=== PATIENT | male | born 1950 | race Caucasian/White ===

== ENCOUNTER 2016-06-20 21:35 | Inpatient (IN) | payer MEDICARE, OTHER ==
--- NOTE | 2016-06-20 22:31 | ED ---
Angelito Donaldson Billy, scribed for Francis Bryson MD on 06/20/16 at 2226 . Complex/Multi-Sys Presentation - HPI Summary HPI Summary: Patient is a 65 year-old male BIBA to [facility] after he was found on the floor with EMS. Per EMS, patient arrives with AMS. In the ED, the patient states that he had been on the floor since yesterday evening because he was unable to move himself. When asked, he was unable to answer whether this was due to pain or weakness. He does not have any other complaints at this time. - History Of Current Complaint Chief Complaint: EDAltMentalStatus Time Seen by Provider: 06/20/16 21:37 Hx Obtained From: Patient, EMS Hx From Patient Unobtainable Due To: Altered Mental Status Onset/Duration: Gradual Onset, Lasting Hours Timing: Constant Severity Currently: Moderate Severity Initially: Moderate Location: Negative Aggravating Factor(s): n/a Alleviating Factor(s): n/a - Allergies/Home Medications Allergies/Adverse Reactions: Allergies Allergy/AdvReac Type Severity Reaction Status Date / Time No Known Allergies Allergy Verified 07/07/14 10:10 Home Medications: Home Medications Menaquinone-7 [Vitamin K2] 100 mcg PO DAILY 06/21/16 [History Confirmed 06/21/16 ] Milk Thistle (Silybum Marianum [Milk Thistle Extract] 1,000 mg PO DAILY [History Confirmed 06/21/16] Turmeric (Curcuma Longa) [Turmeric] 400 mg PO DAILY 06/21/16 [History Confirmed 06/21/16] PMH/Surg Hx/FS Hx/Imm Hx Endocrine/Hematology History: Denies: Hx Diabetes Cardiovascular History: Reports: Hx Angina, Hx Coronary Artery Disease, Hx Hypercholesterolemia, Hx Hypertension - W/MEDS, Hx Myocardial Infarction, Other Cardiovascular Problems/Disorders - CAD Respiratory History: Denies: Hx Asthma, Hx Chronic Obstructive Pulmonary Disease (COPD) Musculoskeletal History: Denies: Other Musculoskeletal History - R SHOULDER PAIN FROM PREVIOUS INJURY Sensory History: Reports: Hx Deafness - [place] - Surgical History Surgery Procedure, Year, and Place: CABG 11 MONTHS AGO Infectious Disease History: No Infectious Disease History: Denies: Traveled Outside the [place] in Last 30 Days - Family History Known Family History: Positive: Cardiac Disease - Social History Alcohol Use: Daily Alcohol Amount: 1 drink with dinner Substance Use Type: Reports: None Hx Tobacco Use: Yes Smoking Status (MU): Former Smoker Review of Systems Negative: Fever Neurological: Other - AMS All Other Systems Reviewed And Are Negative: No - Comments Additional Review of Systems Comments: Full ROS not obtained secondary to AMS. Physical Exam Triage Information Reviewed: Yes Vital Signs On Initial Exam: Initial Vitals Temp Pulse Resp BP Pulse Ox 99.4 F 114 16 163/85 97 06/20/16 22:02 06/20/16 22:02 06/20/16 22:02 06/20/16 22:02 06/20/16 22:02 Vital Signs Reviewed: Yes Appearance: Positive: Ill-Appearing, Thin Skin: Positive: Warm, Dry Head/Face: Positive: Normal Head/Face Inspection Eyes: Positive: JACINDA ENT: Positive: Other - dry mucus membranes Neck: Positive: Supple Respiratory/Lung Sounds: Positive: Clear to Auscultation, Breath Sounds Present Cardiovascular: Positive: RRR Abdomen Description: Positive: Nontender, Soft Neurological: Positive: Receptive Aphasia, Unable to Assess Gait, Other - lt sided weakness Psychiatric: Positive: Anxious Diagnostics - Vital Signs Vital Signs Temp Pulse Resp BP Pulse Ox 06/20/16 22:02 99.4 F 114 16 163/85 97 - Laboratory Result Diagrams: 06/20/16 22:20 06/20/16 23:46 Lab Statement: Any lab studies that have been ordered have been reviewed, and results considered in the medical decision making process. - Radiology CXR Xray Interpretation: No Acute Changes Radiology Interpretation Completed By: ED Physician - CT brain w/o CT Interpretation Completed By: Radiologist - Suspected right frontotemporal mass with prominent surounding vasogenic edema causing 4mm of midline shift, compression of the right lateral ventricle and possible early trapped left lateral ventricle. Recommend further evaluation with enhanced MRI or CT. Neurosurgical consultation is suggested. Re-Evaluation - Re-Evaluation First Eval Comment: d/w dr bear stated admit pt to medicine, give decadron, will evaluate pt in am Complex Multi-Symp Course/Dx - Diagnoses Provider Diagnoses: Brain mass - Physician Notifications Discussed Care Of Patient With: Dr. Vickers (radiology) @ 2320: CT brain results discussed. Dr. Bear (neurosurgery) @ 2324: recommends admission to hospitalist services. Dr. Ray (hospitalist) @ 1952: accepts admission. Instructed by Provider To: Admit As Inpatient - Critical Care Time Critical Care Time: 30-74 min Discharge - Discharge Plan Condition: Critical Disposition: ADMITTED TO [facility] The documentation as recorded by the Angelito solomon Billy accurately reflects the service I personally performed and the decisions made by me, Francis Bryson MD.
[2016-06-20 22:44] LABS: Hematocrit 54 % (42-52); Hemoglobin 17.8 g/dl (14.0-18.0); Mean Corpuscular HGB Conc 33 g/dl (31-36); Mean Corpuscular Hemoglobin 29 pg (27-31); Mean Corpuscular Volume 89 fL (80-94); Mean Platelet Volume 9 um3 (7.4-10.4); Red Blood Count 6.05 10^6/ul (4.0-5.4); Red Cell Distribution Width 14 % (10.5-15); White Blood Count 17.1 10^3/ul (3.5-10.8)
[2016-06-20 22:45] LABS: Add Diff/Slide Review? Slide Review Added; Comments Flag Yes
[2016-06-20 22:58] LABS: ALT 67 U/L (7-52); Albumin 4.3 g/dL (3.2-5.2); Alkaline Phosphatase 68 U/L (34-104); BUN/Creatinine Ratio 56.3 (8-20); Blood Urea Nitrogen 49 mg/dL (6-24); CO2 Carbon Dioxide 28 mmol/L (22-32); Calcium 9.8 mg/dL (8.6-10.3); Chloride 99 mmol/L (101-111); EGFR Non-African American 88.6 (>60); Globulin 4.1 g/dL (2-4); Glucose 144 mg/dL (70-100); Sodium 139 mmol/L (133-145); Total Protein 8.4 g/dL (6.4-8.9)
[2016-06-20 23:06] LABS: Troponin I 0.42 ng/mL (<0.04)
[2016-06-20 23:21] LABS: Alcohol < 10 mg/dL (<10)
[2016-06-20] MEDS ORDERED: Dexamethasone IV* 4 MG/ML 5 ML VIAL (20 MG) IVPB ONE (23:27)
[2016-06-21 00:08] LABS: Magnesium 2.3 mg/dL (1.9-2.7)
--- NOTE | 2016-06-21 01:25 | HP ---
H&P (Free Text) History and Physical: PCP: Gold Puga NP Date/Time of Evaluation: 06/21/2016 0030 CC: unable to ascertain HPI: Mr Massey is a 65YO male who was found on the floor of his home for an uncertain length of time by persons unknown. EMS was called, but their documentation is not currently available for review. Mr Massey while being able to answer questions is highly tangential and unable to process the information I give him. Additionally, he is not oriented to situation. He denies any current weakness, but is unable to lift his LUE off the bed. After much effort, I am not convinced of the reliability of his information, but he reports to increased falls over the past week which he associated with "getting clumsy". When confronted about his LUE, he thinks for a moment and states that began 4-5days ago and then starts telling about how relaxing he finds playing the guitar. He denies current pain at rest, but reports prohibitive low back pain with attempts to lift either lower extremity from the bed. He does admit to some increased cough with eating and drinking, but no slurred speech or visual changes. CT brain WO was read as suspected right frontotemporal mass with prominent surrounding vasogenic edema causing 4mm of midline shift, compression of the right lateral ventricle and possible early trapped L lateral ventricle. Case was discussed between Gold Bear MD neurosurgery and Carline Bryson MD ED. Dr Bear's opinion was strongly that this was not a mass with edema, but a complete R MCA CVA and he will evaluate in the AM. PMedHx CAD/OR/3vCABG/multiple stents HTN HLD Allergies No Known Allergies Allergy (Verified 07/07/14 10:10) Ambulatory Orders Patient unaware of all meds/dosages & reliability is questionable, will need reconciling via Rx in AM. PSurgHx 3vCABG cardiac stents SocHx: former smoker quit ~40years ago, no alcohol or recreational drugs; , lives alone, is currently living in [place] caring for his mother; retired [employer], plays [employer], raises [employer] full code status FamHx: positive for DM, HTN, HLD, & CAD ROS: as above, otherwise reviewed and all were negative Constitutional: NAD, normally developed, well-nourished white male vitals: Vital Signs Temp 37.4 C 06/20/16 22:02 Pulse 121 06/20/16 23:54 Resp 16 06/21/16 00:00 BP 166/98 06/20/16 22:30 Pulse Ox 92 06/20/16 23:54 Intake & Output 06/20/16 06/20/16 06/21/16 11:59 23:59 11:59 Weight 78.018 kg HEENM: atraumatic; sclera/conjunctiva: non-icteric/clear; blephara: normal; hearing: clinically intact; oropharynx: clear, mucosa tacky Neck: soft tissue: non-tender; thyroid: normal Pulmonary: scant crackles B bases, good aeration, no accessory muscle use CV: RR/RR, normal S1S2, no carotid bruit, no jugular venous distention, 2+ B DP/ PT, no edema Abdominal: soft, non-distended, non-tender, no rebound/guarding/rigidity, normoactive bowel sounds, no hepatosplenomegaly or masses, no costovertebral angle tenderness Musculoskeletal: general: grossly intact; gait: unstable Integumental: normal appearance and texture of exposed skin Neurological cranial nerves II: intact visual larose III/IV/: symmetric light reflex, EOMI/PERRLA V: intact facial sensation & mastication VII: L facial droop VIII: hearing clinically intact IX/X: minimal palatal motion, decreased gag reflex, mild dysarthria XII: midline tongue protrusion motor: handed LUE: 3-/5 proximally, distally, & universal grinder tool strength RUE: 4+/5 proximally, distally, & universal grinder tool strength BLE: patient states he can't lift either LE 2nd resultant LBP coordination finger/nose: unable to perform L 2nd weakness heal/vee: unable to perform B 2nd pain sensory crude touch: absent LLE, decreased LUE Psychiatric orientation: AA&O to PP, loosely to situation affect: calm mood: cooperative eye contact: fair to good content: seemingly unreliable memory: foggy related to recent events responses: timely insight: poor Testing: Lab Results 06/20/16 06/20/16 06/20/16 Range/Units 22:20 22:20 22:20 WBC 17.1 H (3.5-10.8) 10^3/ul RBC 6.05 H (4.0-5.4) 10^6/ul Hgb 17.8 (14.0-18.0) g/dl Hct 54 H (42-52) % MCV 89 (80-94) fL MCH 29 (27-31) pg MCHC 33 (31-36) g/dl RDW 14 (10.5-15) % Plt Count 267 (150-450) 10^3/ul MPV 9 (7.4-10.4) um3 Neut % (Auto) 83.7 H (38-83) % Lymph % (Auto) 4.6 L (25-47) % [place] % (Auto) 11.4 H (1-9) % Eos % (Auto) 0 (0-6) % Baso % (Auto) 0.3 (0-2) % Absolute Neuts (auto) 14.3 H (1.5-7.7) 10^3/ul Absolute Lymphs (auto) 0.8 L (1.0-4.8) 10^3/ul Absolute Monos (auto) 1.9 H (0-0.8) 10^3/ul Absolute Eos (auto) 0 (0-0.6) 10^3/ul Absolute Basos (auto) 0.1 (0-0.2) 10^3/ul Absolute Nucleated RBC 0.01 10^3/ul Nucleated RBC % 0.1 INR (Anticoag Therapy) (0.89-1.11) Sodium 139 (133-145) mmol/L Potassium TNP Chloride 99 L (101-111) mmol/L Carbon Dioxide 28 (22-32) mmol/L Anion Gap TNP BUN 49 H (6-24) mg/dL Creatinine 0.87 (0.67-1.17) mg/dL Est GFR ( Amer) 114.0 (>60) Est GFR (Non-Af Amer) 88.6 (>60) BUN/Creatinine Ratio 56.3 H (8-20) Glucose 144 H (70-100) mg/dL Lactic Acid 3.0 H* (0.5-2.0) mmol/L Calcium 9.8 (8.6-10.3) mg/dL Magnesium (1.9-2.7) mg/dL Total Bilirubin 1.40 H (0.2-1.0) mg/dL AST TNP ALT 67 H (7-52) U/L Alkaline Phosphatase 68 (34-104) U/L Troponin I 0.42 H* (<0.04) ng/mL Total Protein 8.4 (6.4-8.9) g/dL Albumin 4.3 (3.2-5.2) g/dL Globulin 4.1 H (2-4) g/dL Albumin/Globulin Ratio 1.0 (1-3) Serum Alcohol < 10 (<10) mg/dL 06/20/16 06/21/16 Range/Units 23:46 00:07 WBC (3.5-10.8) 10^3/ul RBC (4.0-5.4) 10^6/ul Hgb (14.0-18.0) g/dl Hct (42-52) % MCV (80-94) fL MCH (27-31) pg MCHC (31-36) g/dl RDW (10.5-15) % Plt Count (150-450) 10^3/ul MPV (7.4-10.4) um3 Neut % (Auto) (38-83) % Lymph % (Auto) (25-47) % [place] % (Auto) (1-9) % Eos % (Auto) (0-6) % Baso % (Auto) (0-2) % Absolute Neuts (auto) (1.5-7.7) 10^3/ul Absolute Lymphs (auto) (1.0-4.8) 10^3/ul Absolute Monos (auto) (0-0.8) 10^3/ul Absolute Eos (auto) (0-0.6) 10^3/ul Absolute Basos (auto) (0-0.2) 10^3/ul Absolute Nucleated RBC 10^3/ul Nucleated RBC % INR (Anticoag Therapy) 1.17 H (0.89-1.11) Sodium (133-145) mmol/L Potassium 4.2 Chloride (101-111) mmol/L Carbon Dioxide (22-32) mmol/L Anion Gap BUN (6-24) mg/dL Creatinine (0.67-1.17) mg/dL Est GFR ( Amer) (>60) Est GFR (Non-Af Amer) (>60) BUN/Creatinine Ratio (8-20) Glucose (70-100) mg/dL Lactic Acid (0.5-2.0) mmol/L Calcium (8.6-10.3) mg/dL Magnesium 2.3 (1.9-2.7) mg/dL Total Bilirubin (0.2-1.0) mg/dL AST 176 H ALT (7-52) U/L Alkaline Phosphatase (34-104) U/L Troponin I (<0.04) ng/mL Total Protein (6.4-8.9) g/dL Albumin (3.2-5.2) g/dL Globulin (2-4) g/dL Albumin/Globulin Ratio (1-3) Serum Alcohol (<10) mg/dL ECG, personally reviewed: ordered, pending CXR, personally reviewed: no acute process CT brain WO, personally reviewed: IMPRESSION: Suspected right frontotemporal mass with prominent surrounding vasogenic edema causing 4mm of midline shift, compression of the right lateral ventricle and posible early trapped L lateral ventricle. Recommend further evaluation with enhanced MRI or CT. Neurosurgical consultation is suggested. 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 : dexamethasone 10mg loading & 4mg Q6H : MRI brain W/WO in AM : NPO : PT/OT/ST : check lipids in AM : neurochecks : Gold Bear MD neurosurgery consulted by ED, will evaluate in AM : consider neurology consult pending MRI results : supplemental oxyen : supportive care LBP in setting of recent falls : obtain L-spine XRYSs Secondary CAD/OR/3vCABG/multiple stents : review meds after reconcilation HTN : review meds after reconciliation HLD : review meds after reconciliation : lipids in AM Admission Rational: inpatient for further evaluation and management of a subacute neurologic process inappropriate for outpatient setting 2nd high risk of sudden terminal decompensation DVTp: SCDs, no anticoagulation 2nd concern for cerebral tumor vs extensive CVA Code Status: full HCP: formerly (2014) listed as his mother (despite being ), but her current ability to perform this function is unknown
[2016-06-21] MEDS ORDERED: Acetaminophen SUPP* 650 MG SUPP PR PRN (02:52)
[2016-06-21] MEDS ORDERED: Albuterol 2.5 MG/3 ML NEB.SOL* (0.083%) INH PRN (02:55)
[2016-06-21] MEDS ORDERED: Ondansetron INJ* 2 MG/ML VIAL IV PRN (02:56)
[2016-06-21] MEDS ORDERED: Metoprolol Tartrate IV* 1 MG/ML 5 ML VIAL IV PRN (02:57)
[2016-06-21] MEDS: NS 0.9% 1000 ML* 1,000 ML IV SCH ×3 (03:19→20:27)
[2016-06-21] MEDS: Chlorhexidine MOUTHWASH 0.12%* 15 ML UDC SWISH SPIT SCH ×6 (03:28→21:39)
[2016-06-21] MEDS: Dexamethasone IV* 4 MG/ML 1 ML (4 MG) IV SLOW PU SCH ×3 (06:30→17:12)
[2016-06-21 06:45] LABS: Hematocrit 48 % (42-52); Mean Corpuscular HGB Conc 33 g/dl (31-36); Mean Corpuscular Hemoglobin 30 pg (27-31); Mean Corpuscular Volume 90 fL (80-94); Mean Platelet Volume 8 um3 (7.4-10.4); Red Blood Count 5.37 10^6/ul (4.0-5.4); Red Cell Distribution Width 14 % (10.5-15); White Blood Count 14.8 10^3/ul (3.5-10.8)
[2016-06-21 06:48] LABS: Creatine Kinase 3233 U/L (10-223)
[2016-06-21 06:51] LABS: Urine Bacteria Absent (Absent); Urine Bilirubin Negative (Negative); Urine Glucose Negative (Negative); Urine Nitrite Negative (Negative)
[2016-06-21 06:56] LABS: Benzodiazepine Urine Screen None Detected (None Detect)
[2016-06-21 07:01] LABS: Albumin 3.8 g/dL (3.2-5.2); BUN/Creatinine Ratio 62.8 (8-20); Calcium 9.3 mg/dL (8.6-10.3); Direct Bilirubin 0.3 mg/dL (0.03-0.18); EGFR African American 115.5 (>60); EGFR Non-African American 89.8 (>60); Globulin 3.4 g/dL (2-4); HDL Cholesterol 57.9 mg/dL; Indirect Bilirubin 1.1 mg/dL (0.3-1.0); Potassium 3.9 mmol/L (3.5-5.0); Total Bilirubin 1.4 mg/dL (0.2-1.0); Total Protein 7.2 g/dL (6.4-8.9)
[2016-06-21 07:17] LABS: Troponin I 0.31 ng/mL (<0.04)
--- NOTE | 2016-06-21 07:39 | RAD ---
INDICATION: Altered mental status. COMPARISON: There are no prior studies available for comparison. TECHNIQUE: A portable view of the chest was obtained. FINDINGS: The patient is status post coronary artery bypass surgery. The heart is within normal limits in size. There is a small area of increased density which projects over the right upper lobe overlying the anterior right first rib. The lungs are otherwise clear and underinflated. No pleural effusion is seen. IMPRESSION: SMALL AREA OF INCREASED DENSITY WHICH PROJECTS OVER THE RIGHT UPPER LOBE. RECOMMEND A DUAL-ENERGY PA AND LATERAL CHEST X-RAY FOR FURTHER EVALUATION.
[2016-06-21] MEDS ORDERED: Aspirin SUPP* 300 MG PR ONE (07:41)
--- NOTE | 2016-06-21 07:50 | PN ---
Progress Note - Progress Note Note: Dr. Ross called me regarding CT discrepancy. I did relay all information to Dr. Willingham, wooden box maker, via phone call at 0750, as patient is currently located in ICU
--- NOTE | 2016-06-21 07:54 | RAD ---
HISTORY: Altered mental status COMPARISONS: None TECHNIQUE: Multiple contiguous axial CT scans were obtained of the head without intravenous contrast. FINDINGS: HEMORRHAGE/INFARCT: There is hypoattenuation consistent with a subacute infarct of the right MCA territory involving a majority of the right MCA territory. There is high attenuation material consistent with hemorrhagic transformation. MASSES/SHIFT: There is subfalcine shift to the left approximately 0.3 cm. There is partial effacement of the basal cisterns on the right EXTRA-AXIAL SPACES: There are no extra-axial fluid collections. SULCI AND VENTRICLES: The sulci and ventricles are normal in size and position for the patient's stated age. CEREBRUM: As noted above, there is hypoattenuation of the right MCA territory consistent with subacute infarct, with hemorrhagic transformation. There is minimal subfalcine and transtentorial herniation.. BRAINSTEM: There are no focal parenchymal abnormalities. CEREBELLUM: There are no focal parenchymal abnormalities. VESSELS: The vessels are grossly normal. PARANASAL SINUSES: The paranasal sinuses are clear. ORBITS: The orbits are unremarkable. BONES AND SOFT TISSUE: Incidentally noted is a dysraphic defect of the posterior arch of C1 OTHER: None IMPRESSION: 1. SUBACUTE INFARCT OF THE RIGHT MCA TERRITORY WITH HEMORRHAGIC TRANSFORMATION. THERE IS MINIMAL SUBFALCINE AND TRANSTENTORIAL SHIFT. 2. PRELIMINARY FINDINGS WERE DISCUSSED WITH DR. EDDY IN THE EMERGENCY DEPARTMENT BY DR. LORENZO. THE DIFFERENCES FROM THE PRELIMINARY REPORT AND THE FINAL REPORT WERE DISCUSSED WITH DR. STARK IN THE EMERGENCY DEPARTMENT AND DR. MARRUFO IN THE ICU BY DR. URBINA AT APPROXIMATELY 7:45 AM ON JUNE 21, 2016
--- NOTE | 2016-06-21 08:05 | PN ---
Subjective Date of Service: 06/21/16 Interval History: Pt is feeling ok. He states he feels better now than he has in days. He denies any pain. He tells me that he had been falling at home several times over the last 3-4 days. He is unable to tell me when he had his last fall and how long he was on the floor for. He states he is shocked to learn that he had a stroke. Objective Active Medications: Acetaminophen (Tylenol Supp*) 650 mg MS Q6H PRN PRN Reason: FEVER/PAIN Albuterol (Ventolin 2.5 Mg/3 Ml Neb.Fiorella*) 2.5 mg INH Q2H PRN PRN Reason: SOB/WHEEZING Chlorhexidine Gluconate (Peridex Mouth Wash 0.12%*) 15 ml SWISH SPIT Q4HR [facility] Last Admin: 06/21/16 06:30 Dose: 15 ml Dexamethasone Sodium Phosphate (Decadron Iv*) 4 mg IV SLOW PU Q6HR [facility] Last Admin: 06/21/16 06:30 Dose: 4 mg Sodium Chloride (Ns 0.9% 1000 Ml*) 1,000 mls @ 125 mls/hr IV PER RATE [facility] Last Admin: 06/21/16 03:19 Dose: 125 mls/hr Metoprolol Tartrate (Lopressor Iv*) 5 mg IV Q6H PRN PRN Reason: BLOOD PRESSURE Ondansetron HCl (Zofran Inj*) 4 mg IV Q6H PRN PRN Reason: NAUSEA Pantoprazole Sodium (Protonix Iv*) 40 mg IV DAILY [facility] Vital Signs 06/21/16 06/21/16 06/21/16 01:12 01:29 01:30 Temperature Pulse Rate Respiratory 17 16 Rate Blood Pressure 145/92 126/99 (mmHg) O2 Sat by Pulse Oximetry 06/21/16 06/21/16 06/21/16 01:36 01:44 01:45 Temperature 98.7 F Pulse Rate 120 Respiratory 15 Rate Blood Pressure 165/93 150/102 165/93 (mmHg) O2 Sat by Pulse 95 Oximetry 06/21/16 06/21/16 06/21/16 01:52 02:00 02:15 Temperature Pulse Rate 130 91 Respiratory 17 17 17 Rate Blood Pressure 153/100 152/93 (mmHg) O2 Sat by Pulse 89 93 Oximetry 02/06/21/16 06/21/16 02:30 02:45 03:00 Temperature Pulse Rate 109 109 96 Respiratory 20 16 13 Rate Blood Pressure 152/96 152/92 138/84 (mmHg) O2 Sat by Pulse 92 94 94 Oximetry 06/21/16 06/21/16 06/21/16 03:15 03:30 03:45 Temperature Pulse Rate 114 89 84 Respiratory 30 17 14 Rate Blood Pressure 158/103 157/90 131/77 (mmHg) O2 Sat by Pulse 95 97 95 Oximetry 06/21/16 06/21/16 06/21/16 04:00 04:15 04:30 Temperature 97.9 F Pulse Rate 81 79 90 Respiratory 16 12 13 Rate Blood Pressure 141/84 138/79 133/85 (mmHg) O2 Sat by Pulse 93 95 95 Oximetry 06/21/16 06/21/16 06/21/16 04:45 05:00 05:15 Temperature Pulse Rate 86 83 85 Respiratory 12 13 12 Rate Blood Pressure 143/79 129/107 121/75 (mmHg) O2 Sat by Pulse 95 93 95 Oximetry 06/21/16 06/21/16 06/21/16 05:30 05:45 06:00 Temperature Pulse Rate 95 92 96 Respiratory 14 14 14 Rate Blood Pressure 154/87 138/80 152/78 (mmHg) O2 Sat by Pulse 96 95 95 Oximetry 06/21/16 06/21/16 06/21/16 06:15 06:30 07:00 Temperature Pulse Rate 88 95 Respiratory 13 15 Rate Blood Pressure 165/136 151/95 139/103 (mmHg) O2 Sat by Pulse 93 96 Oximetry Oxygen Devices in Use Now: None Appearance: Middle aged male sitting up in bed, NAD Eyes: No Scleral Icterus Ears/Nose/Mouth/Throat: Mucous Membranes Moist Respiratory: Symmetrical Chest Expansion and Respiratory Effort, Clear to Auscultation - but decreased in all lung larose Cardiovascular: NL Sounds; No Murmurs; No JVD, No Edema, - - mildly tachycardic but regular Abdominal: NL Sounds; No Tenderness; No Distention Extremities: No Clubbing, Cyanosis Skin: No Rash or Ulcers, No Nodules or Sclerosis Neurological: - - mildly dysarthric, L facial droop, good feed research aide strength B/L but weakness with lifting the L arm off the bed-he states it "flops around", Pt is able to lift L LE off the bed but unable to hold the leg up Result Diagrams: 06/21/16 06:25 06/21/16 06:25 Microbiology and Other Data: Microbiology 06/21/16 02:05 Nasal Screen MRSA (PCR)(RADHA) - Final Nasal Mrsa Negative Assess/Plan/Problems-Billing Mr Massey is a 65 yo M who has a h/o CAD, HTN and hyperlipidemia who was found down on the floor and confused and brought to the ER where he underwent CT brain that was read initially as a mass with surrounding edema but when the imaging was re-read by our in house radiologist it is felt the findings on CT are actually a large R MCA CVA with hemorrhagic transformation. - Patient Problems (1) Cerebrovascular accident (CVA) due to occlusion of right middle cerebral artery Current Visit: Yes Status: Acute Code(s): I63.511 - CEREB INFRC D/T UNSP OCCLS OR STENOS OF RIGHT MID CEREB ART SNOMED Code(s): 092227951 Comment: The patient's CT brain without contrast last night was initially read as a mass with surrounding edema however Dr. Bear believed this was a subacute infarct of the R MCA (the MCA is visible on CT scan indicating occlusion) with hemorrhagic transformation. This was confirmed by Dr. Ross when he re-read the films this AM. Will obtain CTA head/neck and MRI without contrast to further evaluate the extent of his infarct. Hold on ASA given the hemorrhagic transformation. Obtain neurology consultation. Clinically the patient is doing better than I would anticipate. He will need speech therapy eval, PT/OT. Need to manage his BP. Lipid profile is acceptable. Will need to continue his statin however will wait until his LFTs have improved. (2) Rhabdomyolysis Current Visit: Yes Status: Acute Code(s): M62.82 - RHABDOMYOLYSIS SNOMED Code(s): 340986471 Comment: The duration of time the patient was on the floor is unknown. He had a moderately elevated CPK on admission of 3233 but has now trended down to 2457. Continue IVF hydration. Follow up CPK level tomorrow AM. (3) Elevated troponin Current Visit: Yes Status: Acute Code(s): R74.8 - ABNORMAL LEVELS OF OTHER SERUM ENZYMES SNOMED Code(s): 562909321 Comment: I suspect this elevation is likely related to his rhabdomyolysis however. He is s/p CABG 05/2013 followed by stenting 05/[address] Smith. He has been off his brilinta since 12/2015. He was supposed to be taking a baby aspirin but he tells me he has been intermittently skipping doses of medications. He is getting an echo now. If any concerning wall motion abnormalities will ask for cardiology evaluation though management of an acute event would be limited by the hemorrhagic transformation of his CVA. (4) Transaminitis Current Visit: Yes Status: Acute Code(s): R74.0 - NONSPEC ELEV OF LEVELS OF TRANSAMNS & LACTIC ACID DEHYDRGNSE SNOMED Code(s): 484853842 Comment: I suspect these elevations are secondary to the rhabdomyolysis. Will continue IVF hydration and follow the LFTs. Hold his statin while the LFTs are elevated but this will need to be resumed as soon as possible. (5) Leukocytosis Current Visit: Yes Status: Acute Code(s): D72.829 - ELEVATED WHITE BLOOD CELL COUNT, UNSPECIFIED SNOMED Code(s): 260157202 Comment: I suspect this is a stress reaction. His WBC count trended down from 17.1 to 14.8 today without Abx therapy. No clear signs of infection. Will monitor. (6) HTN (hypertension) Current Visit: Yes Status: Acute Code(s): I10 - ESSENTIAL (PRIMARY) HYPERTENSION SNOMED Code(s): 93211293 Comment: BP is under fair control. Will continue IV metoprolol alone for now to control his HR but not lower the BP to far. (7) Hyperlipidemia Current Visit: Yes Status: Acute Code(s): E78.5 - HYPERLIPIDEMIA, UNSPECIFIED SNOMED Code(s): 17780509 Comment: Statin on hold until LFTs normalize. (8) CAD (coronary artery disease) Current Visit: Yes Status: Acute Code(s): I25.10 - ATHSCL HEART DISEASE OF [place] CORONARY ARTERY W/O ANG PCTRS SNOMED Code(s): 87495049 Comment: No c/o chest pain at this time. Echo results pending. ASA on hold secondary to brain bleed. (9) DVT prophylaxis Current Visit: Yes Status: Acute Code(s): RIF5737 - SNOMED Code(s): 353024760 Comment: SCDs (10) Full code status Current Visit: Yes Status: Acute Code(s): Z78.9 - OTHER SPECIFIED HEALTH STATUS SNOMED Code(s): 214428699
[2016-06-21] MEDS: Pantoprazole IV* 40 MG IV SCH (09:43)
--- NOTE | 2016-06-21 10:23 | ECHO ---
Patient: TARIQ [facility] Rec#: [id number] : 1950 Date: 06/21/2016 Age: 65y Height: 177.8 cm / 70.0 in Weight: 68.5 kg / 151.0 lbs Sex: M BSA: 1.9 Room#: ICU 3 Admit Date#: 06/21/2016 Type: Inpatient Referring: Nathan Ray MD Reading: Marivel Stein MD Benefits Technician: Josseline Barraza RN RDCS CC: Stas Smith MD CC: DIANA ANDERSON DECKHAND TUNA BOAT Transthoracic Echocardiogram BP: 165/136 HR: 97 Rhythm: NSR Findings History: CAD, CABG, NH, PCI, HTN, dyslipidemia, former smoker Technical Comments: The study quality is fair. The study is technically limited due to the patient's smoking history. Completed at 0925. Left Ventricle: The left ventricular chamber size is normal. Septal wall hypertrophy is observed. There is increased basal septal hypertrophy noted without evidence of an increased gradient across the left ventricular outflow tract. There is a focal wall motion abnormality present. Left ventricular systolic function is at the lower limits of normal. The estimated ejection fraction is 50-55%. There is an E to A reversal in the mitral valve flow pattern suggestive of diastolic dysfunction. A thrombus is visualized in the left ventricular apex. Left Atrium: The left atrial chamber size is normal. Right Ventricle: The right ventricular chamber size and systolic function are within normal limits. Right Atrium: The right atrial cavity size is normal. There is evidence of an atrial septal aneurysm. Aortic Valve: The aortic valve leaflets are mildly thickened. There is trace to mild aortic regurgitation. There is no evidence of aortic stenosis. Mitral Valve: There is mitral annular calcification. The mitral valve leaflets are mildly thickened. There is a trace of mitral regurgitation. There is no evidence of mitral stenosis. Tricuspid Valve: The tricuspid valve leaflets are normal. There is trace tricuspid regurgitation. Unable to estimate the right ventricular systolic pressure. Pulmonic Valve: The pulmonic valve structure is not well visualized. There is mild to moderate pulmonic regurgitation. There is no pulmonic stenosis. Pericardium: There is no significant pericardial effusion. Aorta: There is no dilatation of the ascending aorta. There is no dilatation of the aortic arch. There is no dilation of the aortic root. Pulmonary Artery: The main pulmonary artery is not well visualized. Venous: The venous system is not well visualized. The inferior vena cava is not visualized. Summary: There was not any prior study for comparison. Conclusions The left ventricular chamber size is normal. Septal wall hypertrophy is observed. There is increased basal septal hypertrophy noted without evidence of an increased gradient across the left ventricular outflow tract. The estimated ejection fraction is 50-55%. A thrombus is visualized in the left ventricular apex. There is trace to mild aortic regurgitation. There is a trace of mitral regurgitation. There is trace tricuspid regurgitation. There is mild to moderate pulmonic regurgitation. Anteroseptal/apical WMA. The echodense lesion in the LV apex measures 1.6cm x 1.7cm in the A4C view, 1.9cm x 1.2cm in the A2C view, and 1.6cm x 1.9cm in the A3C view. Measurements Name Value Normal Range RVDdMajor (2D) 3.3 cm (2.2 - 4.4) RAd ISD 4CH 4 cm (3.4 - 4.9) RA (A4C)W 3.5 cm (2.9 - 4.6) IVSd (2D) 1.4 cm (0.6 - 1) LVPWd (2D) 1 cm (0.6 - 1) LVIDd (2D) 3.9 cm (3.6 - 5.4) LVIDs (2D) 2.9 cm - LV FS (2D) 25 % (25 - 45) Aortic Annulus 1.8 cm (1.4 - 2.6) Ao root diameter (2D) 2.7 cm (2.1 - 3.5) Ascending Ao 2.6 cm (2.1 - 3.4) Aortic arch 2.6 cm (1.8 - 3.4) LA dimension (AP) 2D 3.5 cm (2.3 - 3.8) LAd ISD 4CH 4.6 cm (2.9 - 5.3) LA ISD 4CH W 3.1 cm (2.5 - 4.5) Name Value Normal Range LA ESV SP 4CH (A/L) 33 ml - LA ESV SP 2CH (A/L) 39 ml - LA ESV BP (A/L) 38 ml - LA ESV BP (A/L) index 20.4 ml/m2 - LA ESV SP 4CH (MOD) 31 ml - LA ESV SP 2CH (MOD) 38 ml - Name Value Normal Range MV E-wave Vmax 0.59 m/sec - MV deceleration time 120 msec - MV A-wave Vmax 0.9 m/sec - MV E:A ratio 0.65 ratio - LV lateral e' Vmax 0.09 m/sec - LV E:e' lateral ratio 6.6 ratio - Name Value Normal Range AV Vmax 1.7 m/sec - AV peak gradient 12 mmHg - LVOT Vmax 0.95 m/sec - KIMBER Vmax 0.86 m/sec - Name Value Normal Range PV Vmax 0.85 m/sec -
--- NOTE | 2016-06-21 11:57 | RAD ---
HISTORY: Stroke COMPARISONS: Head CT dated June 20, 2016 TECHNIQUE: The following sequences were obtained of the head: Sagittal T1-weighted images, axial T2-weighted images, axial FLAIR images, axial susceptibility weighted images, axial T1-weighted images. Additionally, axial diffusion-weighted images were obtained with calculated apparent diffusion coefficients. FINDINGS: HEMORRHAGE/INFARCT: There is restricted diffusion consistent with subacute infarct involving a majority of the right MCA territory. There is associated susceptibility artifact consistent with hemorrhagic conversion is noted on CT. MASSES/SHIFT: There is minimal, 0.3 cm, subfalcine shift to the left. There is partial effacement of the perimesencephalic cistern on the right. EXTRA-AXIAL SPACES/MENINGES: There are no extra-axial fluid collections. SULCI AND VENTRICLES: The sulci and ventricles are normal in size and position for the patient's stated age. CEREBRUM: There is elevated T2/FLAIR signal corresponding to there is restricted diffusion. There are scattered smaller foci in the left cerebral hemisphere. BRAINSTEM: There are no focal parenchymal abnormalities. CEREBELLUM: There are no focal parenchymal abnormalities. The cerebellar tonsils are normal in size and position. SELLA: The sella is normal. PINEAL: The pineal region is clear. CP ANGLE/TEMPORAL BONES: The labyrinthine structures are grossly normal. VESSELS: Normal flow-voids are noted within the visualized vertebral vasculature. DIFFUSION ABNORMALITIES: As noted above, there is restricted diffusion within the right MCA territory consistent with subacute infarct PARANASAL SINUSES/MASTOIDS: The paranasal sinuses are clear. ORBITS: The orbits are unremarkable. BONES AND SOFT TISSUE: No bone or soft tissue abnormalities are noted. OTHER: None IMPRESSION: 1. SUBACUTE INFARCT WITH HEMORRHAGIC CONVERSION OF THE RIGHT MCA TERRITORY. 2. THERE IS MINIMAL SUBFALCINE SHIFT TO THE RIGHT WITH PARTIAL EFFACEMENT OF THE PERIMESENCEPHALIC CISTERN.
[2016-06-21] MEDS ORDERED: Iohexol 350* (CONTRAST) 500 ML MDV IV ONE (12:04)
--- NOTE | 2016-06-21 12:25 | RAD ---
HISTORY: Stroke COMPARISONS: CT of the head dated June 20, 2016 , MRI dated June 21, 2016 TECHNIQUE: Multiple contiguous axial CT scans were obtained of the head and neck After the administration of nonionic intravenous contrast timed to the systemic arterial phase of contrast enhancement. Coronal and sagittal multiplanar reformations are submitted for review. Multiple 3-D maximum intensity projection reconstructions are also submitted for review. FINDINGS: CTA NECK: AORTIC ARCH: There is a normal three-vessel branching pattern of the aortic arch. There is no ostial or proximal stenosis of the cephalic great vessels. RIGHT VERTEBRAL ARTERY: The right vertebral artery appears to terminate in the right posterior inferior cerebellar artery. LEFT VERTEBRAL ARTERY: The left vertebral artery is patent along its course, without stenosis. DOMINANCE: The left vertebral artery is dominant. RIGHT COMMON CAROTID ARTERY: The right common carotid artery is patent. The right carotid bifurcation occurs at C4-C5 RIGHT INTERNAL CAROTID ARTERY: There is minimal atheromatous disease of the right carotid bifurcation, without right internal carotid artery stenosis by NASCET criteria. RIGHT EXTERNAL CAROTID ARTERY: The right external carotid artery is unremarkable. LEFT COMMON CAROTID ARTERY: The left common carotid artery is patent. The left carotid bifurcation occurs at C4-C5 LEFT INTERNAL CAROTID ARTERY: There is minimal atheromatous disease of the left carotid bifurcation, without left internal carotid artery stenosis by NASCET criteria. LEFT EXTERNAL CAROTID ARTERY: The left external carotid artery is unremarkable. VENOUS CIRCULATION: The venous system is unremarkable. SALIVARY GLANDS: The parotid glands, submandibular glands, sublingual glands are normal. NASAL CAVITY/NASOPHARYNX: The nasal cavity and nasopharynx are normal. ORAL CAVITY/OROPHARYNX: The oral cavity is obscured by streak artifact from dental amalgam. The visualized oral cavity and oropharynx are unremarkable. LARYNGEAL APPARATUS/HYPOPHARYNX: The laryngeal apparatus and hypopharynx are normal. UPPER AIRWAY/UPPER ESOPHAGUS: The visualized upper airway and esophagus are normal. LUNG APICES: The lung apices are clear. THYROID GLAND: The thyroid gland is normal. LYMPH NODES: There is no lymphadenopathy by size criteria. BONES AND SOFT TISSUES: Degenerative changes are noted along the spine. CTA HEAD: INTRACRANIAL CIRCULATION: There is no aneurysm, vascular malformation, occlusion, or stenosis of the visualized intracranial circulation. As noted above, the right vertebral artery terminates in the PICA. The anterior communicating artery complex is clear. Bilateral posterior communicating arteries are identified. VENOUS CIRCULATION: The venous system is unremarkable. PERFUSION: There is hypoperfusion of the anterior temporal pole and inferior frontal lobe on the right. HEMORRHAGE/INFARCT: There is hypoattenuation of the right MCA territory corresponding to the infarct noted on previous CT and MRI. The hemorrhage noted on the previous examination is not well-visualized on this contrast-enhanced study. MASSES/SHIFT: There is no mass or shift. EXTRA-AXIAL SPACES: There are no extra-axial fluid collections. SULCI AND VENTRICLES: The sulci and ventricles are normal in size and position for the patient's stated age. CEREBRUM: As noted above, there is hypoattenuation of the right MCA territory BRAINSTEM: There are no focal parenchymal abnormalities. CEREBELLUM: There are no focal parenchymal abnormalities. PARANASAL SINUSES: The paranasal sinuses are clear. ORBITS: The orbits are unremarkable. BONES AND SOFT TISSUE: No bone or soft tissue abnormalities are noted. OTHER: There is no abnormal enhancement. IMPRESSION: 1. AGAIN NOTED IS HYPOATTENUATION OF THE RIGHT MCA TERRITORY CONSISTENT WITH SUBACUTE INFARCT. 2. THERE IS HYPOPERFUSION OF THE ANTERIOR TEMPORAL POLE AND RIGHT INFERIOR FRONTAL LOBE. THERE IS NO APPRECIABLE LARGE VESSEL OCCLUSION OR STENOSIS. 3. THERE IS NO ANEURYSM OR VASCULAR MALFORMATION. 4. THERE IS NO INTERNAL CAROTID ARTERY STENOSIS BY NASCET CRITERIA. CPT II Codes: 3100F
--- NOTE | 2016-06-21 13:13 | RAD ---
INDICATION: Back pain. Falls. COMPARISON: None TECHNIQUE: AP and lateral views were obtained . FINDINGS: Bones: There are no acute bony findings. There are minor arthritic changes with facet arthropathy at the lower 2 lumbar levels. There is spurring at the thoracolumbar junction. Alignment: Normal Disc spaces: The disc spaces are well-maintained Soft tissues: There is residual contrast within the collecting systems and bladder from an earlier CT. IMPRESSION: NO ACUTE FINDINGS. MINOR OSTEOARTHRITIS.
[2016-06-21] MEDS: Aspirin EC Low Dose* 81 MG TAB.EC PO SCH (17:12)
[2016-06-21] MEDS: Atorvastatin* 40 MG TAB PO SCH (17:12)
[2016-06-21] MEDS: Metoprolol Tartrate TAB* 50 mg PO SCH (21:18)
[2016-06-22] MEDS: Dexamethasone IV* 4 MG/ML 1 ML (4 MG) IV SLOW PU SCH ×3 (00:15→12:53)
[2016-06-22] MEDS: Chlorhexidine MOUTHWASH 0.12%* 15 ML UDC SWISH SPIT SCH ×6 (01:46→21:46)
[2016-06-22] MEDS: NS 0.9% 1000 ML* 1,000 ML IV SCH (04:02)
--- NOTE | 2016-06-22 04:16 | CONS ---
NEUROLOGY CONSULTATION: DATE OF CONSULT: 06/21/16 LOCATION: The patient is in ICU, bed 3. REQUESTING PHYSICIAN: Dr. Alejandrina Reid. REASON FOR CONSULT: Right MCA stroke with hemorrhagic transformation. HISTORY OF PRESENT ILLNESS: Lc Massey is a 65-year-old man with a history of coronary artery disease, status post CABG and multiple stents, who presented to the emergency department yesterday after being found down in his home by a neighbor. History is obtained from review of records as well as discussion with the patient and his two brothers who are at the bedside. They estimate that he was potentially down on his floor for at least 3 days because his mother typically speaks with him over the weekends and she was unable to get hold of him either Sunday or Sunday, and today is Sunday. The patient was brought in on Sunday night. Ellen reports that he had been dropping things at home and had been tripping over things and estimates that he fell at least 7 times before finally falling on the floor and being unable to get up. He is unable to state why he did not call for help sooner and the brothers are frustrated because they say he is typically very attentive to his health. He has no past history of stroke. Upon arrival in the emergency department, he was found to have left-sided weakness and a CAT scan showed hypodensity in the territory of the right MCA, with some associated hyperdensity concerning for hemorrhagic transformation. Neurology consultation was requested due to the presence of stroke. PAST MEDICAL HISTORY: 1. Coronary artery disease and myocardial infarction in the past, status post 3 - vessel CABG and multiple stents. 2. Hypertension. 3. Hyperlipidemia. HOME MEDICATIONS: 1. Milk thistle 1000 mg daily. 2. Turmeric 400 mg daily. 3. Menaquinone-7, 1000 mcg daily. 4. Vitamin D3, 2000 units daily. 5. Amlodipine 5 mg daily. 6. Magnesium oxide 400 mg daily. 7. Aspirin 81 mg daily. 8. Isosorbide ER 60 mg daily. 9. Metoprolol 50 mg b.i.d. 10. Lipitor 40 mg daily. 11. Enalapril 10 mg twice daily. The patient had previously been treated with Brilinta, but has been off of that for at least a month under the guidance of his ophthalmic photographer. ALLERGIES: No known drug allergies. FAMILY HISTORY: There is a history of stroke and diabetes in a brother who is , but he also reportedly abused drugs. There is also a history of diabetes in the father, as well as hypertension, hyperlipidemia, and coronary artery disease in the parents. SOCIAL HISTORY: He is a former smoker, quit at least 30 years ago. He drinks alcohol occasionally and denies any recreational drug use. He currently lives alone in [place]. 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 His current deficits are very concerning to him because of his love of playing the guitar. REVIEW OF SYSTEMS: He is currently complaining of a sore throat. He also mentions that his furnace was not working correctly and there was black soot in his apartment and wonders whether there is any sign of this on his chest x-ray. He also has back pain, which was severe when he was lying on the floor, but is somewhat better now. PHYSICAL EXAMINATION: Vital Signs: Temperature 99, blood pressure 163/90, heart rate 92, oxygen saturation 96% on room air. He has been in normal sinus rhythm to sinus tachycardia on telemetry. On general examination, he looks quite well and is fully awake and alert, sitting up in the chair at his bedside, in the ICU. His pharynx is erythematous and the uvula has purulent patches. His heart reveals a regular rate and rhythm, with no murmurs, rubs, or gallops. Lungs are clear to auscultation bilaterally. Carotids are without bruits. He had some abrasions on his knees bilaterally. On neurologic examination, he is fully awake, alert, and oriented. His speech is fluent, without dysarthria or aphasia. On cranial nerve testing, pupils are equal, round, and reactive from 4 to 3 mm bilaterally. He has a slight right gaze preference, but is voluntarily able to overcome and his versions are full but he has impersistence and inattentiveness. There is no obvious visual field defect nor extinction to double simultaneous stimulation, though he does have some difficulty with maintaining his fixation in the midline when trying to cooperate with testing of visual larose. He indicates that sensation is equal in the V1 through V3 distributions bilaterally. There is mild flattening of the left nasolabial fold, but with good activation on smile. The palate elevates symmetrically and the tongue is midline. Shoulder shrug is mildly asymmetric, decreased on the left. There is mildly increased tone in the left upper extremity and paratonia in the right upper extremity. Strength is full in the right upper and lower extremities. He has approximately grade 3 strength in the left shoulder, with grade 4 strength in the left biceps, and nearly full strength in the left triceps. Hand surgery nurse is just mildly weak on the left. The left lower extremity is approximately grade 4 throughout. On sensory testing, he endorses equal sensation to temperature in the upper extremities, but diminished sensation in the left lower extremity. With eyes closed, he is unable to tell that he is being touched in the left lower extremity. There is extinction to double simultaneous stimulation in the upper extremities. On [id number] testing on the right, there is no ataxia. Weakness precludes testing on the left. He was not ambulated at this time. DIAGNOSTIC STUDIES/LAB DATA: Laboratory data reviewed includes a CBC which was notable for white count of 17.1 yesterday, which is down to 14.8 today, with 93 % neutrophils. INR this morning, at midnight, was 1.17. His chemistry panel today is notable for BUN of 54 and a normal creatinine of 0.86, with a GFR of 89.8. Hemoglobin A1c is 6.2 and glucose this morning was 170. Lactate was 3 on admission and was down to 1.6 a few hours later. AST 156, ALT 59, total bilirubin 1.4, direct bilirubin 0.3, and indirect 1.1, which are all high. His CK has trended down from 3233 to 2457. Troponin was 0.42 on admission, has trended down to 0.31. Cholesterol studies indicate triglycerides of 76, total cholesterol 146, LDL of 73, and HDL of 57.9. Urinalysis showed 2+ protein, 2+ ketones, 1+ blood, and 2+ rbc's. Toxicology screen was negative. Alcohol was less than 10. Noncontrast head CT was personally reviewed and showed hypodensity in the territory of the right MCA, with an area of hyperdensity in the deep white matter of the frontal lobe consistent with hemorrhagic transformation. This measures approximately 3.5 cm x 1.7 cm x 3.1 cm, equaling approximately 9 cc. In addition, there is partial effacement of the basal cisterns and some very minimal subfalcine herniation of 0.3 cm. MRI of the brain was also personally reviewed which demonstrates acute-to- subacute infarction in the area previously described on the CT and confirms the presence of hemorrhagic transformation. In addition, there are also a few foci of small vessel ischemic disease in the left cerebral hemisphere. CT angiogram showed minimal atherosclerosis, with no obvious occlusion or major areas of stenosis. His chest x-ray was interpreted to show a small area of increased density, which projects over the right upper lobe overlying the anterior right first rib and recommendation was made for a dual-energy PA and lateral chest x-ray for further evaluation. Echocardiogram showed septal wall hypertrophy, increased basal septal hypertrophy, low normal EF of 50% to 55%, small left ventricular apical thrombus in addition to an anteroseptal/apical wall motion abnormality. The echodense lesion in the ventricular apex measures 1.6 cm x 1.7 cm. IMPRESSION: Lc Massey is a 65-year-old man with a history of significant cardiac disease, who presented to the emergency department with a subacute right MCA stroke with some associated hemorrhagic transformation. He is actually doing remarkably well currently considering the territory of infarction indicated on his scans. Unfortunately, he is found to have a left ventricular thrombus, but currently also has some hemorrhagic transformation within his area of stroke, which currently precludes anticoagulation. At this time, I would like to start him on a baby aspirin and repeat the CT scan tomorrow to assess for stability or improvement in the area of hemorrhagic transformation. If he should have any acute worsening of his neurologic status , he should go immediately for repeat noncontrast head CT for evaluation. If his area of hemorrhagic transformation appears stable to improved tomorrow, we will consider starting heparin drip without bolus given the presence of the cardiac thrombus and significant risk for further embolization from that source. In addition, it appears that he has glucose intolerance versus newly diagnosed diabetes, given his A1c of 6.2%, and will need attention to this risk factor as an outpatient. His lipids appear adequately treated at this point with Lipitor. Continue to let his blood pressure ride on the higher side today , but we will consider beginning to bring that down tomorrow given that we are likely seeing the stroke in the subacute phase. He should remain in the ICU at this time for close monitoring given the presence of the cardiac thrombus. Separately, he has erythema and apparent purulent discharge in his pharynx and I have ordered a rapid strep test to be done. Thank you for this consultation. [id number]/[facility] #: [id number] MILY
[2016-06-22 05:38] LABS: Hematocrit 41 % (42-52); Hemoglobin 13.5 g/dl (14.0-18.0); Mean Corpuscular HGB Conc 33 g/dl (31-36); Mean Corpuscular Hemoglobin 30 pg (27-31); Mean Corpuscular Volume 90 fL (80-94); Mean Platelet Volume 8 um3 (7.4-10.4); Red Blood Count 4.54 10^6/ul (4.0-5.4); Red Cell Distribution Width 13 % (10.5-15); White Blood Count 13.5 10^3/ul (3.5-10.8)
[2016-06-22 05:49] LABS: BUN/Creatinine Ratio 63.8 (8-20); Calcium 8.2 mg/dL (8.6-10.3); EGFR African American 148.9 (>60); EGFR Non-African American 115.8 (>60); Globulin 2.8 g/dL (2-4); Potassium 3.6 mmol/L (3.5-5.0); Total Bilirubin 0.9 mg/dL (0.2-1.0); Total Protein 5.8 g/dL (6.4-8.9)
--- NOTE | 2016-06-22 08:03 | RAD ---
HISTORY: Follow-up stroke COMPARISONS: None TECHNIQUE: Multiple contiguous axial CT scans were obtained of the head without intravenous contrast. FINDINGS: HEMORRHAGE/INFARCT: Again noted is hypoattenuation consistent with subacute infarct of the right MCA territory. There is persistent high attenuation material centrally consistent with hemorrhagic transformation. MASSES/SHIFT: There is persistent subfalcine shift to the left of approximately 0.3 cm. There is persistent partial effacement of the perimesencephalic cistern on the right. EXTRA-AXIAL SPACES: There are no extra-axial fluid collections. The subarachnoid hemorrhage described in the preliminary report is felt to represent cortical hemorrhage in the setting of cortical laminar necrosis SULCI AND VENTRICLES: The sulci and ventricles are normal in size and position for the patient's stated age. CEREBRUM: As noted above, there is a subacute infarct of the right MCA territory with hemorrhagic transformation BRAINSTEM: There are no focal parenchymal abnormalities. CEREBELLUM: There are no focal parenchymal abnormalities. VESSELS: The vessels are grossly normal. PARANASAL SINUSES: The paranasal sinuses are clear. ORBITS: The orbits are unremarkable. BONES AND SOFT TISSUE: Incidentally noted is a dysraphic defect of the posterior arch of C1 OTHER: None IMPRESSION: STABLE SUBACUTE RIGHT MCA INFARCT WITH HEMORRHAGIC TRANSFORMATION AND A SMALL AMOUNT OF SHIFT
[2016-06-22] MEDS: Pantoprazole IV* 40 MG IV SCH (08:35)
[2016-06-22] MEDS: Aspirin EC Low Dose* 81 MG TAB.EC PO SCH (08:35)
[2016-06-22] MEDS: Metoprolol Tartrate TAB* 50 mg PO SCH ×2 (08:35→20:36)
--- NOTE | 2016-06-22 09:25 | PN ---
Subjective Date of Service: 06/22/16 Interval History: Pt is feeling ok. He is scared and upset about the stroke. He would like to play his guitar because he feels his fingers on the left hand are clumsy. He denies any pain at this time. He denies any SOB. He would like to get up to the chair. Objective Active Medications: Acetaminophen (Tylenol Supp*) 650 mg WA Q6H PRN PRN Reason: FEVER/PAIN Albuterol (Ventolin 2.5 Mg/3 Ml Neb.Fiorella*) 2.5 mg INH Q2H PRN PRN Reason: SOB/WHEEZING Aspirin (Aspirin Ec Low Dose*) 81 mg PO DAILY COUNTS INCLUDE 234 BEDS AT THE [facility] Last Admin: 06/22/16 08:35 Dose: 81 mg Atorvastatin Calcium (Lipitor*) 40 mg PO QPM COUNTS INCLUDE 234 BEDS AT THE [facility] Last Admin: 06/21/16 17:12 Dose: 40 mg Chlorhexidine Gluconate (Peridex Mouth Wash 0.12%*) 15 ml SWISH SPIT Q4HR COUNTS INCLUDE 234 BEDS AT THE [facility] Last Admin: 06/22/16 06:11 Dose: 15 ml Dexamethasone Sodium Phosphate (Decadron Iv*) 4 mg IV SLOW PU Q6HR COUNTS INCLUDE 234 BEDS AT THE [facility] Last Admin: 06/22/16 06:12 Dose: 4 mg Sodium Chloride (Ns 0.9% 1000 Ml*) 1,000 mls @ 125 mls/hr IV PER RATE COUNTS INCLUDE 234 BEDS AT THE [facility] Last Admin: 06/22/16 04:02 Dose: 125 mls/hr Metoprolol Tartrate (Lopressor Tab*) 50 mg PO BID COUNTS INCLUDE 234 BEDS AT THE [facility] Last Admin: 06/22/16 08:35 Dose: 50 mg Ondansetron HCl (Zofran Inj*) 4 mg IV Q6H PRN PRN Reason: NAUSEA Pantoprazole Sodium (Protonix Iv*) 40 mg IV DAILY COUNTS INCLUDE 234 BEDS AT THE [facility] Last Admin: 06/22/16 08:35 Dose: 40 mg Vital Signs 06/21/16 06/21/16 06/21/16 10:00 10:49 11:46 Temperature Pulse Rate Respiratory 15 15 Rate Blood Pressure 146/85 151/105 (mmHg) O2 Sat by Pulse Oximetry 06/21/16 06/21/16 06/21/16 11:49 12:00 12:48 Temperature 98.7 F Pulse Rate 100 105 100 Respiratory 15 22 16 Rate Blood Pressure 138/101 (mmHg) O2 Sat by Pulse 97 96 97 Oximetry 06/21/16 06/21/16 06/21/16 12:50 13:00 13:24 Temperature Pulse Rate 87 Respiratory 18 18 18 Rate Blood Pressure 155/84 (mmHg) O2 Sat by Pulse 97 Oximetry 06/21/16 06/21/16 06/21/16 14:00 14:47 15:00 Temperature Pulse Rate 83 98 Respiratory 15 15 21 Rate Blood Pressure 143/85 160/100 (mmHg) O2 Sat by Pulse 97 95 Oximetry 06/21/16 06/21/16 06/21/16 15:49 16:00 16:52 Temperature 99 F Pulse Rate 92 Respiratory 21 18 Rate Blood Pressure 163/90 (mmHg) O2 Sat by Pulse 96 Oximetry 06/21/16 06/21/16 06/21/16 17:00 17:41 18:00 Temperature Pulse Rate 80 91 Respiratory 15 20 18 Rate Blood Pressure 147/87 172/104 (mmHg) O2 Sat by Pulse 96 98 Oximetry 06/21/16 06/21/16 06/21/16 19:00 19:55 20:00 Temperature 97.9 F Pulse Rate 80 77 Respiratory 12 11 Rate Blood Pressure 145/70 126/69 (mmHg) O2 Sat by Pulse 95 92 Oximetry 06/21/16 06/21/16 06/21/16 21:00 21:20 22:00 Temperature Pulse Rate 89 90 86 Respiratory 11 18 18 Rate Blood Pressure 142/73 123/68 (mmHg) O2 Sat by Pulse 96 98 95 Oximetry 06/21/16 06/21/16 06/22/16 22:06 23:00 00:00 Temperature 98.6 F Pulse Rate 85 79 77 Respiratory 12 14 17 Rate Blood Pressure 119/72 (mmHg) O2 Sat by Pulse 95 94 94 Oximetry 06/22/16 06/22/16 06/22/16 00:01 01:00 01:43 Temperature Pulse Rate 74 70 Respiratory 18 14 12 Rate Blood Pressure 135/88 118/62 (mmHg) O2 Sat by Pulse 95 95 Oximetry 06/22/16 06/22/16 06/22/16 02:00 03:00 04:00 Temperature 98.8 F Pulse Rate 65 65 85 Respiratory 11 16 17 Rate Blood Pressure 104/58 114/57 149/83 (mmHg) O2 Sat by Pulse 94 93 95 Oximetry 06/22/16 06/22/16 06/22/16 05:00 06:00 07:00 Temperature Pulse Rate 75 74 58 Respiratory 18 18 15 Rate Blood Pressure 110/54 116/55 104/59 (mmHg) O2 Sat by Pulse 94 94 91 Oximetry 06/22/16 06/22/16 06/22/16 07:27 08:00 09:00 Temperature 98.4 F Pulse Rate 56 80 Respiratory 12 21 Rate Blood Pressure 144/70 140/63 (mmHg) O2 Sat by Pulse 96 94 Oximetry Oxygen Devices in Use Now: None Appearance: Middle aged male sitting up in bed eating breakfast, NAD Eyes: No Scleral Icterus Ears/Nose/Mouth/Throat: Mucous Membranes Moist Respiratory: Symmetrical Chest Expansion and Respiratory Effort, Clear to Auscultation Cardiovascular: NL Sounds; No Murmurs; No JVD, RRR, No Edema Abdominal: NL Sounds; No Tenderness; No Distention Extremities: No Clubbing, Cyanosis Skin: No Rash or Ulcers, No Nodules or Sclerosis Neurological: Alert and Oriented x 3, - - + L UE drift, L LE strength not tested due to position in bed Result Diagrams: 06/22/16 05:30 06/22/16 05:30 Microbiology and Other Data: Microbiology 06/21/16 02:05 Nasal Screen MRSA (PCR)(RADHA) - Final Nasal Mrsa Negative Assess/Plan/Problems-Billing Mr Massey is a 65 yo M who has a h/o CAD, HTN and hyperlipidemia who was found down on the floor and confused and brought to the ER where he underwent CT brain that was read initially as a mass with surrounding edema but when the imaging was re-read by our in house radiologist it is felt the findings on CT are actually a large R MCA CVA with hemorrhagic transformation. - Patient Problems (1) Cerebrovascular accident (CVA) due to occlusion of right middle cerebral artery Current Visit: Yes Status: Acute Code(s): I63.511 - CEREB INFRC D/T UNSP OCCLS OR STENOS OF RIGHT MID CEREB ART SNOMED Code(s): 929176029 Comment: Appreciate neurology consultation. He has been started on ASA 81mg daily given the newly identified LV thrombus. As his CT is stable today will likely start heparin without boluses at the direction of neurology as he is at risk for further embolization from the LV thrombus. His R MCA CVA is likely the result of embolization from the LV thrombus to the R MCA. Continue PT/OT. PMRU eval. Will restart lipitor today as his LFTs are improving. Will resume his home BP medications. (2) Rhabdomyolysis Current Visit: Yes Status: Acute Code(s): M62.82 - RHABDOMYOLYSIS SNOMED Code(s): 064900179 Comment: Repeat CPK level pending. I have stopped the IVF as he is now eating /drinking without difficulty. (3) Prediabetes Current Visit: Yes Status: Acute Code(s): R73.03 - PREDIABETES SNOMED Code (s): 203690827 Comment: A1c is mildly elevated at 6.2%. Will ask for nutrition consult. (4) Elevated troponin Current Visit: Yes Status: Acute Code(s): R74.8 - ABNORMAL LEVELS OF OTHER SERUM ENZYMES SNOMED Code(s): 456685541 Comment: ASA has been resumed. Resume other usual home cardiac medicatons. (5) Transaminitis Current Visit: Yes Status: Acute Code(s): R74.0 - NONSPEC ELEV OF LEVELS OF TRANSAMNS & LACTIC ACID DEHYDRGNSE SNOMED Code(s): 196078189 Comment: LFTs improving. Restart lipitor today. (6) Leukocytosis Current Visit: Yes Status: Acute Code(s): D72.829 - ELEVATED WHITE BLOOD CELL COUNT, UNSPECIFIED SNOMED Code(s): 853615622 Comment: Rapid strep swab negative. No other concerns for infection. Continue to hold ABx and monitor WBC (continues to trend down). (7) HTN (hypertension) Current Visit: Yes Status: Acute Code(s): I10 - ESSENTIAL (PRIMARY) HYPERTENSION SNOMED Code(s): 33010314 Comment: Will resume enalapril and imdur today. Continue to hold amlodipine as his BP is not markedly elevated. (8) Hyperlipidemia Current Visit: Yes Status: Acute Code(s): E78.5 - HYPERLIPIDEMIA, UNSPECIFIED SNOMED Code(s): 54006576 Comment: Resume lipitor today. (9) CAD (coronary artery disease) Current Visit: Yes Status: Acute Code(s): I25.10 - ATHSCL HEART DISEASE OF [place] CORONARY ARTERY W/O ANG PCTRS SNOMED Code(s): 66195474 Comment: No c/o chest pain at this time. Echo shows a low normal EF with a focal wall motion abnormality in the anteroseptal region-no old echo to compare to. Continue ASA. (10) DVT prophylaxis Current Visit: Yes Status: Acute Code(s): IRM1643 - SNOMED Code(s): 110603523 Comment: SCDs (11) Full code status Current Visit: Yes Status: Acute Code(s): Z78.9 - OTHER SPECIFIED HEALTH STATUS SNOMED Code(s): 049143006
[2016-06-22] MEDS ORDERED: Heparin VIAL(*) 5000 UNITS/ML VIAL (FIVE THOUSAND) IV SCH (14:00)
[2016-06-22] MEDS: Heparin DRIP 25,000 UNITS(*) 25,000 UNITS/500 ML BAG IV SCH (14:05)
[2016-06-22] MEDS: Atorvastatin* 40 MG TAB PO SCH (17:47)
[2016-06-22] MEDS: Enalapril TAB* 20 MG PO SCH (20:36)
[2016-06-23] MEDS: Chlorhexidine MOUTHWASH 0.12%* 15 ML UDC SWISH SPIT SCH ×6 (01:43→21:15)
--- NOTE | 2016-06-23 02:32 | PN ---
PROGRESS NOTE: DATE OF EVALUATION: 06/22/16 OVERNIGHT EVENTS: There were no acute overnight events. Overall, the patient is stable to improve in terms of his left-sided weakness. No new neurologic symptoms. He had a mild headache this morning, but denies any significant headache now. His throat continues to be very painful making it somewhat difficult to eat. His rapid strep was negative. IN-HOSPITAL MEDICATIONS: 1. Acetaminophen suppository as needed. 2. Albuterol as needed. 3. Aspirin 81 mg daily. 4. Atorvastatin 40 mg daily. 5. Chlorhexidine mouth wash. 6. Enalapril 10 mg twice daily. 7. Dexamethasone 4 mg IV q.6 hours. 8. Isosorbide mononitrate 60 mg daily. 9. Metoprolol 50 mg twice daily. 10. Ondansetron 4 mg IV q.6 p.r.n. 11. Pantoprazole 40 mg IV daily. PHYSICAL EXAMINATION: Vital Signs: Temperature 97.7, blood pressure 128/66, heart rate 70, oxygen saturation 94% on room air. The patient is sitting up right, eating lunch and looks quite well. His pharynx continues to show erythema and what appeared to be purulent patches on his uvula. His heart is in regular rate and rhythm with no murmurs, rubs, or gallops. Lungs are clear to auscultation posteriorly. On neurologic exam, he stated the date was 06/23/16. He is oriented to place. Speech is fluent without dysarthria or aphasia. Versions are full without nystagmus. There appears to be slight left lower quadrant visual field defect. His left-sided weakness overall is stable to slightly improved with grade 3-4 strength in the proximal left upper extremity and grade 4+ strength at the left biceps, 5 at the left triceps, and 4+ quality control assistant strength. The left lower extremity is essentially grade 4 throughout. There are slight flattening of the left nasolabial fold but good activation with smile. He is able to sense light touch in the left calf with eyes closed today, but continues to have extinction to double simultaneous stimulation. LABORATORY DATA: White count is 13.5 today, hematocrit of 41 with 91% neutrophils. His BUN is improved to 44 today from 54 yesterday. CK continues to improve to 1164 from 2457 yesterday. AST is improved to 110 from 156 yesterday. Group A rapid strep was negative. Noncontrast brain CT was obtained and personally reviewed this morning, which shows that the area of hemorrhagic transformation in the territory of the right MCA stroke is stable to slightly improved. IMPRESSION: Lc Massey is a 65-year-old man who presented subacutely with a right MCA stroke associated with hemorrhagic transformation due to left ventricular thrombus. He continues to do very well clinically. His area of hemorrhagic transformation is stable on head CT and so I would like to start a heparin drip with low goal PTT of 50 to 60, no boluses today. I have discussed the risks and benefits of this with Lc and his family and they are in agreement with starting this. He is aware of that if he should have any neurologic changes such as increased left-sided weakness, vision changes, speech changes, headache, he is to alert someone immediately and a repeat CT of the brain should be obtained and the heparin drip should be turned off. Tomorrow morning, he will go for a repeat head CT and if that is stable, we will consider increasing the PTT goal to 60 to 70. For now, he will continue on aspirin as well. Of note, I did not make a note yesterday that he was placed on dexamethasone q.6 hours, presumably because the initial read on the CT when he came in night before last was that this was a mass with surrounding vasogenic edema. I have discontinued that medication as is not indicated in the setting of ischemic stroke. Thank you for this consultation. We will continue to follow the patient. [id number]/[facility] #: [id number] MILY
[2016-06-23 06:47] LABS: Hematocrit 40 % (42-52); Hemoglobin 13.8 g/dl (14.0-18.0); Mean Corpuscular HGB Conc 34 g/dl (31-36); Mean Corpuscular Hemoglobin 30 pg (27-31); Mean Corpuscular Volume 89 fL (80-94); Mean Platelet Volume 9 um3 (7.4-10.4); Red Blood Count 4.55 10^6/ul (4.0-5.4); Red Cell Distribution Width 14 % (10.5-15); White Blood Count 14.2 10^3/ul (3.5-10.8)
[2016-06-23 07:07] LABS: BUN/Creatinine Ratio 52.3 (8-20); Calcium 8.4 mg/dL (8.6-10.3); EGFR African American 159.6 (>60); EGFR Non-African American 124.1 (>60); Potassium 3.4 mmol/L (3.5-5.0)
--- NOTE | 2016-06-23 08:18 | RAD ---
INDICATION: Hemorrhagic CVA, follow-up. COMPARISON: Comparison is made with a prior CT of the brain from June 22, 2016 and prior MRI of the brain from June 21, 2016. TECHNIQUE: Contiguous axial sections of the brain were obtained from the skull base to the vertex without contrast. FINDINGS: There is a large area of decreased attenuation involving the cortex and white matter in the right frontal, temporal and parietal lobes consistent with a large infarct in the right middle cerebral artery distribution. There are central areas of increased density correlating with susceptibility artifact on the prior MRI study consistent with hemorrhage which appear unchanged. There is mass effect with effacement of the sulci and compression of the right lateral ventricle and approximately 4 mm of subfalcine herniation which has increased slightly from the prior study. No significant focal osseous abnormality is seen. The visualized portion of the paranasal sinuses and mastoid air cells appear clear. The results of this examination were discussed with the referring clinician. IMPRESSION: LARGE SUBACUTE HEMORRHAGIC INFARCT INVOLVING THE RIGHT MIDDLE CEREBRAL ARTERY DISTRIBUTION DEMONSTRATING SLIGHT INCREASED MASS EFFECT AND OTHERWISE UNCHANGED FROM THE PRIOR EXAM.
[2016-06-23] MEDS: Aspirin EC Low Dose* 81 MG TAB.EC PO SCH (09:26)
[2016-06-23] MEDS: Metoprolol Tartrate TAB* 50 mg PO SCH ×2 (09:26→21:09)
[2016-06-23] MEDS: Enalapril TAB* 20 MG PO SCH ×2 (09:26→21:14)
[2016-06-23] MEDS: Isosorbide Mononitrate ER TAB* 30 MG PO SCH (09:26)
[2016-06-23] MEDS: Pantoprazole IV* 40 MG IV SCH (09:26)
[2016-06-23] MEDS ORDERED: Amoxicillin/Clavulanate TAB* 500 MG PO SCH (13:00)
--- NOTE | 2016-06-23 13:34 | RAD ---
HISTORY: Worsening headache, follow-up hemorrhage COMPARISONS: June 23, 2014 at 5:42 AM TECHNIQUE: Multiple contiguous axial CT scans were obtained of the head without intravenous contrast. FINDINGS: HEMORRHAGE/INFARCT: Again noted is a subacute infarct of the right MCA territory with partial hemorrhagic transformation. This is stable from the previous examination. Elsewhere, there is no hemorrhage or acute infarct. MASSES/SHIFT: There is stable subfalcine shift to the left. There is sulcal effacement, with partial effacement of the right perimesencephalic cistern. This is stable... EXTRA-AXIAL SPACES: There are no extra-axial fluid collections. SULCI AND VENTRICLES: The sulci and ventricles are normal in size and position for the patient's stated age. CEREBRUM: As noted above, there is hypoattenuation of the right MCA territory with associated hemorrhagic transformation BRAINSTEM: There are no focal parenchymal abnormalities. CEREBELLUM: There are no focal parenchymal abnormalities. VESSELS: The vessels are grossly normal. PARANASAL SINUSES: The paranasal sinuses are clear. ORBITS: The orbits are unremarkable. BONES AND SOFT TISSUE: No bone or soft tissue abnormalities are noted. OTHER: None IMPRESSION: STABLE SUBACUTE INFARCT OF THE RIGHT MCA TERRITORY WITH HEMORRHAGIC TRANSFORMATION. THERE IS ASSOCIATED EDEMA WITH MINIMAL SUBFALCINE SHIFT TO THE LEFT, STABLE.
--- NOTE | 2016-06-23 14:35 | PN ---
Subjective Date of Service: 06/23/16 Interval History: Pt is feeling ok. He c/o R sided headache now. He rates it a 4-5/10. Objective Active Medications: Acetaminophen (Tylenol Supp*) 650 mg [place] Q6H PRN PRN Reason: FEVER/PAIN Albuterol (Ventolin 2.5 Mg/3 Ml Neb.Fiorella*) 2.5 mg INH Q2H PRN PRN Reason: SOB/WHEEZING Amoxicillin/Clavulanate Potassium (Augmentin Tab*) 500 mg PO BID [facility] Aspirin (Aspirin Ec Low Dose*) 81 mg PO DAILY [facility] Last Admin: 06/23/16 09:26 Dose: 81 mg Atorvastatin Calcium (Lipitor*) 40 mg PO QPM [facility] Last Admin: 06/22/16 17:47 Dose: 40 mg Chlorhexidine Gluconate (Peridex Mouth Wash 0.12%*) 15 ml SWISH SPIT Q4HR [facility] Last Admin: 06/23/16 06:13 Dose: 15 ml Enalapril Maleate (Vasotec Tab*) 10 mg PO BID [facility] Last Admin: 06/23/16 09:26 Dose: 10 mg Heparin Sodium (Porcine) (Heparin Vial(*)) 0 units IV .PER PROTOCOL [facility] PRN Reason: Protocol Heparin Sodium/Dextrose (Heparin Drip 25,000 Units(*)) 25,000 units in 500 mls @ 0 mls/hr IV .NO BOLUSES PROTOCOL [facility]; Per Protocol PRN Reason: Protocol Last Admin: 06/22/16 14:05 Dose: 20 mls/hr Isosorbide Mononitrate (Imdur Er Tab*) 60 mg PO DAILY [facility] Last Admin: 06/23/16 09:26 Dose: 60 mg Metoprolol Tartrate (Lopressor Tab*) 50 mg PO BID [facility] Last Admin: 06/23/16 09:26 Dose: 50 mg Ondansetron HCl (Zofran Inj*) 4 mg IV Q6H PRN PRN Reason: NAUSEA Pantoprazole Sodium (Protonix Iv*) 40 mg IV DAILY [facility] Last Admin: 06/23/16 09:26 Dose: 40 mg Vital Signs 06/22/16 06/22/16 06/22/16 15:00 16:00 16:05 Temperature 97.2 F Pulse Rate 57 59 58 Respiratory 16 16 14 Rate Blood Pressure 124/111 (mmHg) O2 Sat by Pulse 98 99 100 Oximetry 06/22/16 06/22/16 06/22/16 17:00 18:00 19:00 Temperature Pulse Rate 57 84 Respiratory 14 19 17 Rate Blood Pressure 127/60 158/90 142/86 (mmHg) O2 Sat by Pulse 98 99 Oximetry 06/22/16 06/22/16 06/22/16 19:40 20:00 21:00 Temperature 98.0 F Pulse Rate 54 Respiratory 10 18 Rate Blood Pressure 95/43 142/73 (mmHg) O2 Sat by Pulse 95 Oximetry 06/22/16 06/22/16 06/22/16 21:58 22:00 23:00 Temperature Pulse Rate Respiratory 17 16 18 Rate Blood Pressure 142/66 137/58 (mmHg) O2 Sat by Pulse Oximetry 06/22/16 06/22/16 06/23/16 23:27 23:39 00:00 Temperature 97.8 F Pulse Rate Respiratory 13 11 Rate Blood Pressure (mmHg) O2 Sat by Pulse Oximetry 06/23/16 06/23/16 06/23/16 00:01 00:02 01:00 Temperature Pulse Rate 51 Respiratory 13 11 Rate Blood Pressure 106/43 (mmHg) O2 Sat by Pulse 95 Oximetry 06/23/16 06/23/16 06/23/16 02:00 03:00 03:51 Temperature Pulse Rate 64 52 60 Respiratory 13 11 19 Rate Blood Pressure 133/67 120/84 (mmHg) O2 Sat by Pulse 97 95 96 Oximetry 06/23/16 06/23/16 06/23/16 04:00 05:00 06:00 Temperature 97.9 F Pulse Rate 49 55 61 Respiratory 10 11 15 Rate Blood Pressure 117/59 124/64 (mmHg) O2 Sat by Pulse 95 96 96 Oximetry 06/23/16 06/23/16 06/23/16 07:00 08:00 08:09 Temperature 97.8 F Pulse Rate 50 57 57 Respiratory 12 13 13 Rate Blood Pressure 148/87 (mmHg) O2 Sat by Pulse 94 96 96 Oximetry 06/23/16 06/23/16 06/23/16 09:00 09:21 10:00 Temperature Pulse Rate 62 63 Respiratory 13 13 14 Rate Blood Pressure 132/69 111/57 (mmHg) O2 Sat by Pulse 97 97 Oximetry 06/23/16 06/23/16 06/23/16 11:00 12:00 12:39 Temperature 98.1 F Pulse Rate 64 49 Respiratory 19 14 Rate Blood Pressure 136/79 128/73 (mmHg) O2 Sat by Pulse 99 98 Oximetry 06/23/16 13:00 Temperature Pulse Rate 55 Respiratory 14 Rate Blood Pressure 116/67 (mmHg) O2 Sat by Pulse 97 Oximetry Oxygen Devices in Use Now: None Appearance: Middle aged male lying in bed sleeping, easily awakened to voice, NAD Eyes: No Scleral Icterus Ears/Nose/Mouth/Throat: Mucous Membranes Moist Respiratory: Symmetrical Chest Expansion and Respiratory Effort, Clear to Auscultation Cardiovascular: NL Sounds; No Murmurs; No JVD, RRR, No Edema Abdominal: NL Sounds; No Tenderness; No Distention Extremities: No Clubbing, Cyanosis Skin: No Rash or Ulcers, No Nodules or Sclerosis Neurological: Alert and Oriented x 3, - - improved strength L UE though still "clumsy" per the patient Result Diagrams: 06/23/16 06:27 06/23/16 06:27 Microbiology and Other Data: Microbiology 06/21/16 02:05 Nasal Screen MRSA (PCR)(RADHA) - Final Nasal Mrsa Negative Assess/Plan/Problems-Billing Mr Massey is a 65 yo M who has a h/o CAD, HTN and hyperlipidemia who was found down on the floor and confused and brought to the ER where he underwent CT brain that was read initially as a mass with surrounding edema but when the imaging was re-read by our in house radiologist it is felt the findings on CT are actually a large R MCA CVA with hemorrhagic transformation. - Patient Problems (1) Cerebrovascular accident (CVA) due to occlusion of right middle cerebral artery Current Visit: Yes Status: Acute Code(s): I63.511 - CEREB INFRC D/T UNSP OCCLS OR STENOS OF RIGHT MID CEREB ART SNOMED Code(s): 000048248 Comment: Continue ASA 81mg daily. Continue heparin drip given interventricular thrombus. Clinically the patient is stable. He was having headache at the time of my evaluation therefore I obtained repeat CT that did not reveal any worsening of the hemorrhage. Continue PT/OT. Awaiting PMRU answer for acute rehab. Continue home medication regimen and lipitor. (2) Rhabdomyolysis Current Visit: Yes Status: Acute Code(s): M62.82 - RHABDOMYOLYSIS SNOMED Code(s): 583751074 Comment: CPK trended down to ~1100. No further need to monitor. (3) Prediabetes Current Visit: Yes Status: Acute Code(s): R73.03 - PREDIABETES SNOMED Code (s): 905334840 Comment: A1c is mildly elevated at 6.2%. (4) Elevated troponin Current Visit: Yes Status: Acute Code(s): R74.8 - ABNORMAL LEVELS OF OTHER SERUM ENZYMES SNOMED Code(s): 164512742 Comment: Continue home medication regimen. (5) Transaminitis Current Visit: Yes Status: Acute Code(s): R74.0 - NONSPEC ELEV OF LEVELS OF TRANSAMNS & LACTIC ACID DEHYDRGNSE SNOMED Code(s): 105891457 Comment: Improved. (6) Leukocytosis Current Visit: Yes Status: Acute Code(s): D72.829 - ELEVATED WHITE BLOOD CELL COUNT, UNSPECIFIED SNOMED Code(s): 574649770 Comment: WBC count is up further today. Will add augmentin given the appearance of his posterior pharynx. (7) HTN (hypertension) Current Visit: Yes Status: Acute Code(s): I10 - ESSENTIAL (PRIMARY) HYPERTENSION SNOMED Code(s): 29472612 Comment: Continue metoprolol, enalapril and imdur. Continue to hold amlodipine. (8) Hyperlipidemia Current Visit: Yes Status: Acute Code(s): E78.5 - HYPERLIPIDEMIA, UNSPECIFIED SNOMED Code(s): 82194515 Comment: Continue lipitor. (9) CAD (coronary artery disease) Current Visit: Yes Status: Acute Code(s): I25.10 - ATHSCL HEART DISEASE OF [place] CORONARY ARTERY W/O ANG PCTRS SNOMED Code(s): 11253329 Comment: No c/o chest pain at this time. Echo shows a low normal EF with a focal wall motion abnormality in the anteroseptal region-no old echo to compare to. Continue ASA. (10) DVT prophylaxis Current Visit: Yes Status: Acute Code(s): CVC4597 - SNOMED Code(s): 437262914 Comment: SCDs (11) Full code status Current Visit: Yes Status: Acute Code(s): Z78.9 - OTHER SPECIFIED HEALTH STATUS SNOMED Code(s): 552091249
[2016-06-23] MEDS: Amoxicillin/Clavulanate TAB* 500 MG PO SCH ×2 (16:15→21:14)
[2016-06-23] MEDS: Atorvastatin* 40 MG TAB PO SCH (17:32)
[2016-06-23] MEDS: Heparin DRIP 25,000 UNITS(*) 25,000 UNITS/500 ML BAG IV SCH (20:00)
[2016-06-24] MEDS: Chlorhexidine MOUTHWASH 0.12%* 15 ML UDC SWISH SPIT SCH ×6 (03:07→21:26)
[2016-06-24 06:52] LABS: BUN/Creatinine Ratio 37.7 (8-20); Calcium 8.1 mg/dL (8.6-10.3); EGFR African American 148.9 (>60); EGFR Non-African American 115.8 (>60); Potassium 3.2 mmol/L (3.5-5.0)
[2016-06-24 07:01] LABS: Hematocrit 39 % (42-52); Mean Corpuscular HGB Conc 33 g/dl (31-36); Mean Corpuscular Hemoglobin 30 pg (27-31); Mean Corpuscular Volume 90 fL (80-94); Mean Platelet Volume 9 um3 (7.4-10.4); Red Blood Count 4.36 10^6/ul (4.0-5.4); Red Cell Distribution Width 13 % (10.5-15); White Blood Count 9.1 10^3/ul (3.5-10.8)
[2016-06-24] MEDS ORDERED: Potassium Chloride LIQUID* 20 MEQ PACKET PO ONE (08:10)
--- NOTE | 2016-06-24 08:42 | PN ---
Subjective Date of Service: 06/24/16 Interval History: Pt is feeling ok. He continues to have "slight" headaches on the R side. He is frustrated with the clumsiness of his left hand and is upset he can not play his guitar. He states his throat is still sore but feeling better. Objective Active Medications: Acetaminophen (Tylenol Supp*) 650 mg [place] Q6H PRN PRN Reason: FEVER/PAIN Albuterol (Ventolin 2.5 Mg/3 Ml Neb.Fiorella*) 2.5 mg INH Q2H PRN PRN Reason: SOB/WHEEZING Amoxicillin/Clavulanate Potassium (Augmentin Tab*) 500 mg PO Q12HR [facility] Last Admin: 06/23/16 21:14 Dose: 500 mg Aspirin (Aspirin Ec Low Dose*) 81 mg PO DAILY [facility] Last Admin: 06/23/16 09:26 Dose: 81 mg Atorvastatin Calcium (Lipitor*) 40 mg PO QPM [facility] Last Admin: 06/23/16 17:32 Dose: 40 mg Chlorhexidine Gluconate (Peridex Mouth Wash 0.12%*) 15 ml SWISH SPIT Q4HR [facility] Last Admin: 06/24/16 07:31 Dose: Not Given Enalapril Maleate (Vasotec Tab*) 10 mg PO BID [facility] Last Admin: 06/23/16 21:14 Dose: 10 mg Heparin Sodium (Porcine) (Heparin Vial(*)) 0 units IV .PER PROTOCOL [facility] PRN Reason: Protocol Heparin Sodium/Dextrose (Heparin Drip 25,000 Units(*)) 25,000 units in 500 mls @ 0 mls/hr IV .NO BOLUSES PROTOCOL [facility]; Per Protocol PRN Reason: Protocol Last Admin: 06/23/16 20:00 Dose: 13 mls/hr Isosorbide Mononitrate (Imdur Er Tab*) 60 mg PO DAILY [facility] Last Admin: 06/23/16 09:26 Dose: 60 mg Metoprolol Tartrate (Lopressor Tab*) 25 mg PO BID [facility] Ondansetron HCl (Zofran Inj*) 4 mg IV Q6H PRN PRN Reason: NAUSEA Pantoprazole Sodium (Protonix Iv*) 40 mg IV DAILY [facility] Last Admin: 06/23/16 09:26 Dose: 40 mg Vital Signs 06/23/16 06/23/16 06/23/16 09:00 09:21 10:00 Temperature Pulse Rate 62 63 Respiratory 13 13 14 Rate Blood Pressure 132/69 111/57 (mmHg) O2 Sat by Pulse 97 97 Oximetry 06/23/16 06/23/16 06/23/16 11:00 12:00 12:39 Temperature 98.1 F Pulse Rate 64 49 Respiratory 19 14 Rate Blood Pressure 136/79 128/73 (mmHg) O2 Sat by Pulse 99 98 Oximetry 06/23/16 06/23/16 06/23/16 13:00 14:00 14:33 Temperature Pulse Rate 55 54 57 Respiratory 14 15 16 Rate Blood Pressure 116/67 100/49 (mmHg) O2 Sat by Pulse 97 93 97 Oximetry 06/23/16 06/23/16 06/23/16 15:00 16:00 17:00 Temperature Pulse Rate 61 62 56 Respiratory 15 18 15 Rate Blood Pressure 95/46 99/52 111/61 (mmHg) O2 Sat by Pulse 98 95 95 Oximetry 06/23/16 06/23/16 06/23/16 18:00 19:00 20:00 Temperature 98.5 F Pulse Rate 61 62 58 Respiratory 14 18 18 Rate Blood Pressure 120/66 100/56 123/74 (mmHg) O2 Sat by Pulse 96 95 95 Oximetry 06/23/16 06/23/16 06/23/16 21:00 21:09 22:00 Temperature Pulse Rate 58 57 60 Respiratory 16 15 15 Rate Blood Pressure 120/59 113/57 109/45 (mmHg) O2 Sat by Pulse 97 96 94 Oximetry 06/23/16 06/23/16 06/24/16 23:00 23:37 00:00 Temperature Pulse Rate 50 63 53 Respiratory 10 13 16 Rate Blood Pressure 105/50 (mmHg) O2 Sat by Pulse 93 96 94 Oximetry 06/24/16 06/24/16 06/24/16 00:01 01:00 02:00 Temperature Pulse Rate 52 56 50 Respiratory 0 0 10 Rate Blood Pressure 103/58 98/57 117/54 (mmHg) O2 Sat by Pulse 95 95 93 Oximetry 06/24/16 06/24/16 06/24/16 03:00 04:00 04:20 Temperature 98.0 F Pulse Rate 52 Respiratory 9 19 17 Rate Blood Pressure 113/63 145/69 (mmHg) O2 Sat by Pulse 95 Oximetry 06/24/16 06/24/1617 04:48 05:00 06:00 Temperature Pulse Rate 51 52 52 Respiratory 10 12 9 Rate Blood Pressure 114/60 122/64 123/73 (mmHg) O2 Sat by Pulse 95 97 95 Oximetry 06/24/16 08:00 Temperature 98.4 F Pulse Rate Respiratory Rate Blood Pressure (mmHg) O2 Sat by Pulse Oximetry Oxygen Devices in Use Now: None Appearance: Middle aged male lying in bed, NAD Eyes: No Scleral Icterus Ears/Nose/Mouth/Throat: Mucous Membranes Moist, - - uvula is erythematous, improved whitish exudate on the uvula Respiratory: Symmetrical Chest Expansion and Respiratory Effort, Clear to Auscultation Cardiovascular: NL Sounds; No Murmurs; No JVD, No Edema, - - bradycardic but regular Abdominal: NL Sounds; No Tenderness; No Distention Extremities: No Clubbing, Cyanosis Skin: No Rash or Ulcers, No Nodules or Sclerosis Neurological: Alert and Oriented x 3 Result Diagrams: 06/24/16 06:15 06/24/16 06:15 Microbiology and Other Data: Microbiology 06/21/16 02:05 Nasal Screen MRSA (PCR)(RADHA) - Final Nasal Mrsa Negative Assess/Plan/Problems-Billing Mr Massey is a 65 yo M who has a h/o CAD, HTN and hyperlipidemia who was found down on the floor and confused and brought to the ER where he underwent CT brain that was read initially as a mass with surrounding edema but when the imaging was re-read by our in house radiologist it is felt the findings on CT are actually a large R MCA CVA with hemorrhagic transformation. - Patient Problems (1) Cerebrovascular accident (CVA) due to occlusion of right middle cerebral artery Current Visit: Yes Status: Acute Code(s): I63.511 - CEREB INFRC D/T UNSP OCCLS OR STENOS OF RIGHT MID CEREB ART SNOMED Code(s): 859946387 Comment: Continue ASA 81mg daily. Continue heparin drip given left ventricular thrombus. Clinically the patient is stable. Repeat CT scan yesterday afternoon did not show any evidence of worsening bleed. Need to monitor very closely. ? timing for initiating coumadin. Continue PT/OT. ?PMRU. (2) Rhabdomyolysis Current Visit: Yes Status: Acute Code(s): M62.82 - RHABDOMYOLYSIS SNOMED Code(s): 173893127 Comment: Resolving. (3) Prediabetes Current Visit: Yes Status: Acute Code(s): R73.03 - PREDIABETES SNOMED Code (s): 810215316 Comment: A1c is mildly elevated at 6.2%. Continue education regarding diabetes. (4) Elevated troponin Current Visit: Yes Status: Acute Code(s): R74.8 - ABNORMAL LEVELS OF OTHER SERUM ENZYMES SNOMED Code(s): 293350616 Comment: He has never complained of chest pain. Continue home medication regimen for his h/o CAD. (5) Transaminitis Current Visit: Yes Status: Acute Code(s): R74.0 - NONSPEC ELEV OF LEVELS OF TRANSAMNS & LACTIC ACID DEHYDRGNSE SNOMED Code(s): 376401071 Comment: Improved. (6) Leukocytosis Current Visit: Yes Status: Acute Code(s): D72.829 - ELEVATED WHITE BLOOD CELL COUNT, UNSPECIFIED SNOMED Code(s): 513690356 Comment: Pt likely has a pharyngitis. His WBC count has improved with the initiation of augmentin. Continue for a 7 day course of therapy. (7) HTN (hypertension) Current Visit: Yes Status: Acute Code(s): I10 - ESSENTIAL (PRIMARY) HYPERTENSION SNOMED Code(s): 49839893 Comment: BP is under excellent control. Continue metoprolol, enalapril and imdur. Continue to hold amlodipine. (8) Hyperlipidemia Current Visit: Yes Status: Acute Code(s): E78.5 - HYPERLIPIDEMIA, UNSPECIFIED SNOMED Code(s): 75618967 Comment: Continue lipitor. (9) CAD (coronary artery disease) Current Visit: Yes Status: Acute Code(s): I25.10 - ATHSCL HEART DISEASE OF [place] CORONARY ARTERY W/O ANG PCTRS SNOMED Code(s): 29746043 Comment: Continue ASA, metoprolol, enalapril and imdur. (10) DVT prophylaxis Current Visit: Yes Status: Acute Code(s): RYQ1820 - SNOMED Code(s): 569524742 Comment: SCDs/heparin drip (11) Full code status Current Visit: Yes Status: Acute Code(s): Z78.9 - OTHER SPECIFIED HEALTH STATUS SNOMED Code(s): 316013610
[2016-06-24] MEDS: Aspirin EC Low Dose* 81 MG TAB.EC PO SCH (09:31)
[2016-06-24] MEDS: Isosorbide Mononitrate ER TAB* 30 MG PO SCH (09:31)
[2016-06-24] MEDS: Amoxicillin/Clavulanate TAB* 500 MG PO SCH ×2 (09:31→21:24)
[2016-06-24] MEDS: Pantoprazole IV* 40 MG IV SCH (09:31)
[2016-06-24] MEDS: Enalapril TAB* 20 MG PO SCH ×2 (09:31→21:23)
[2016-06-24] MEDS: Metoprolol Tartrate TAB* 25 MG PO SCH ×2 (09:32→21:24)
--- NOTE | 2016-06-24 11:53 | PN ---
Progress Note - Progress Note SOAP: Neurology progress note Date of service: 06/24/16 Subjective: No acute events overnight. The patient complains of a mild headache in the right side of the head. Otherwise, he feels that his strength in the left hand and leg has slightly improved, although he is somewhat frustrated about the lack of dexterity in the left-hand. Objective: Vital Signs Temp Pulse Resp BP Pulse Ox 98.4 F 74 15 109/82 96 06/24/16 08:00 06/24/16 11:00 06/24/16 11:00 06/24/16 11:00 06/24/16 11:00 Laboratory Results - last 24 hr 06/23/16 06/23/16 06/24/16 14:50 18:30 01:30 WBC RBC Hgb Hct MCV MCH MCHC RDW Plt Count MPV Neut % (Auto) Lymph % (Auto) [place] % (Auto) Eos % (Auto) Baso % (Auto) Absolute Neuts (auto) Absolute Lymphs (auto) Absolute Monos (auto) Absolute Eos (auto) Absolute Basos (auto) Absolute Nucleated RBC Nucleated RBC % APTT 88.9 H 43.4 H 70.2 H Sodium Potassium Chloride Carbon Dioxide Anion Gap BUN Creatinine Est GFR ( Amer) Est GFR (Non-Af Amer) BUN/Creatinine Ratio Glucose Calcium 06/24/16 06/24/16 06/24/16 06:15 06:15 09:42 WBC 9.1 RBC 4.36 Hgb 13.0 L Hct 39 L MCV 90 MCH 30 MCHC 33 RDW 13 Plt Count 191 MPV 9 Neut % (Auto) 66.4 Lymph % (Auto) 21.9 L [place] % (Auto) 9.9 H Eos % (Auto) 1.2 Baso % (Auto) 0.6 Absolute Neuts (auto) 6.0 Absolute Lymphs (auto) 2.0 Absolute Monos (auto) 0.9 H Absolute Eos (auto) 0.1 Absolute Basos (auto) 0.1 Absolute Nucleated RBC 0 Nucleated RBC % 0 APTT 79.3 H Sodium 137 Potassium 3.2 L Chloride 103 Carbon Dioxide 28 Anion Gap 6 BUN 26 H Creatinine 0.69 Est GFR ( Amer) 148.9 Est GFR (Non-Af Amer) 115.8 BUN/Creatinine Ratio 37.7 H Glucose 94 Calcium 8.1 L Current Medications Acetaminophen (Tylenol Supp*) 650 mg [place] Q6H PRN PRN Reason: FEVER/PAIN Albuterol (Ventolin 2.5 Mg/3 Ml Neb.Fiorella*) 2.5 mg INH Q2H PRN PRN Reason: SOB/WHEEZING Amoxicillin/Clavulanate Potassium (Augmentin Tab*) 500 mg PO Q12HR [facility] Last Admin: 06/24/16 09:31 Dose: 500 mg Aspirin (Aspirin Ec Low Dose*) 81 mg PO DAILY [facility] Last Admin: 06/24/16 09:31 Dose: 81 mg Atorvastatin Calcium (Lipitor*) 40 mg PO QPM [facility] Last Admin: 06/23/16 17:32 Dose: 40 mg Chlorhexidine Gluconate (Peridex Mouth Wash 0.12%*) 15 ml SWISH SPIT Q4HR [facility] Last Admin: 06/24/16 10:23 Dose: 15 ml Enalapril Maleate (Vasotec Tab*) 10 mg PO BID [facility] Last Admin: 06/24/16 09:31 Dose: 10 mg Heparin Sodium (Porcine) (Heparin Vial(*)) 0 units IV .PER PROTOCOL [facility] PRN Reason: Protocol Heparin Sodium/Dextrose (Heparin Drip 25,000 Units(*)) 25,000 units in 500 mls @ 0 mls/hr IV .NO BOLUSES PROTOCOL [facility]; Per Protocol PRN Reason: Protocol Last Admin: 06/23/16 20:00 Dose: 13 mls/hr Isosorbide Mononitrate (Imdur Er Tab*) 60 mg PO DAILY [facility] Last Admin: 06/24/16 09:31 Dose: 60 mg Metoprolol Tartrate (Lopressor Tab*) 25 mg PO BID [facility] Last Admin: 06/24/16 09:32 Dose: 25 mg Ondansetron HCl (Zofran Inj*) 4 mg IV Q6H PRN PRN Reason: NAUSEA Pantoprazole Sodium (Protonix Iv*) 40 mg IV DAILY [facility] Last Admin: 06/24/16 09:31 Dose: 40 mg General appearance: Alert, cooperative, no distress, appears stated age Neurological exam: Alert and oriented x3, speech normal. Pupils symmetric and reactive to light. Extraocular movements intact with no nystagmus. Visual larose seem intact by confrontation (the visual filed deficit detected by Dr Moreau seems is better today) Face symmetric, tongue is in midline, palate elevates upward symmetrically. Motor strength 3/5 in deltoid, 4+/5 in elbow flexion and extension. Strength is 5/5 on the right upper and lower extremities. No resting or positional tremor. Finger to nose intact on the right side. slight action tremor on the left. CT head on 06/23/16 (yesterday): STABLE SUBACUTE INFARCT OF THE RIGHT MCA TERRITORY WITH HEMORRHAGIC TRANSFORMATION. THERE IS ASSOCIATED EDEMA WITH MINIMAL SUBFALCINE SHIFT TO THE LEFT, STABLE. Assessment and Plan: 65-year-old male with right MCA stroke related to left ventricular thrombus. The patient's exam and CT imaging have been stable. continue with heparin with the goal of keeping the PTT in the lower range of 60 70. the patient presented to the hospital on 06/20/16 with subacute to stroke, so probably didn' t date of onset of stroke might be around 06/19/16. Recommend to continue Heparin for about 7 days post stroke, ie around 06/26/16 before switching to Coumadin. Keep the SBP less than 140 mmHg.
[2016-06-24] MEDS ORDERED: Potassium Chlor TAB* 20 MEQ TAB.ER PO ONE (13:40)
[2016-06-24] MEDS: Atorvastatin* 40 MG TAB PO SCH (17:53)
[2016-06-25] MEDS: Chlorhexidine MOUTHWASH 0.12%* 15 ML UDC SWISH SPIT SCH ×6 (02:30→21:25)
[2016-06-25 03:17] LABS: Hematocrit 41 % (42-52); Hemoglobin 13.7 g/dl (14.0-18.0); Mean Corpuscular HGB Conc 34 g/dl (31-36); Mean Corpuscular Hemoglobin 30 pg (27-31); Mean Corpuscular Volume 89 fL (80-94); Mean Platelet Volume 8 um3 (7.4-10.4); Red Cell Distribution Width 13 % (10.5-15); White Blood Count 8.2 10^3/ul (3.5-10.8)
--- NOTE | 2016-06-25 08:15 | PN ---
Subjective Date of Service: 06/25/16 Interval History: Pt is feeling ok. He denies any pain. No SOB. He is frustrated still and worried about recovering fully. Minimal headache. Objective Active Medications: Acetaminophen (Tylenol Supp*) 650 mg [place] Q6H PRN PRN Reason: FEVER/PAIN Albuterol (Ventolin 2.5 Mg/3 Ml Neb.Fiorella*) 2.5 mg INH Q2H PRN PRN Reason: SOB/WHEEZING Amoxicillin/Clavulanate Potassium (Augmentin Tab*) 500 mg PO Q12HR [facility]S [facility]CLUDE [facility] BEDS AT [facility] Last Admin: 06/24/16 21:24 Dose: 500 mg Aspirin (Aspirin Ec Low Dose*) 81 mg PO DAILY [facility]S [facility]CLUDE 234 BEDS AT THE [facility] Last Admin: 06/24/16 09:31 Dose: 81 mg Atorvastatin Calcium (Lipitor*) 40 mg PO QPM COUNTS [facility]CLUDE 234 BEDS AT THE [facility] Last Admin: 06/24/16 17:53 Dose: 40 mg Chlorhexidine Gluconate (Peridex Mouth Wash 0.12%*) 15 ml SWISH SPIT Q4HR COUNTS [facility]CLUDE 234 BEDS AT THE [facility] Last Admin: 06/25/16 06:03 Dose: 15 ml Enalapril Maleate (Vasotec Tab*) 10 mg PO BID [facility]S [facility]CLUDE 234 BEDS AT [facility] Last Admin: 06/24/16 21:23 Dose: 10 mg Heparin Sodium (Porcine) (Heparin Vial(*)) 0 units IV .PER PROTOCOL COUNTS [facility]CLUDE 234 BEDS AT [facility] PRN Reason: Protocol Heparin Sodium/Dextrose (Heparin Drip 25,000 Units(*)) 25,000 units in 500 mls @ 0 mls/hr IV .NO BOLUSES PROTOCOL COUNTS INCLUDE 234 BEDS AT THE [facility]; Per Protocol PRN Reason: Protocol Last Admin: 06/23/16 20:00 Dose: 13 mls/hr Isosorbide Mononitrate (Imdur Er Tab*) 60 mg PO DAILY COUNTS [facility]CLUDE 234 BEDS AT [facility] Last Admin: 06/24/16 09:31 Dose: 60 mg Metoprolol Tartrate (Lopressor Tab*) 25 mg PO BID [facility]S [facility]CLUDE 234 BEDS AT [facility] Last Admin: 06/24/16 21:24 Dose: 25 mg Ondansetron HCl (Zofran Inj*) 4 mg IV Q6H PRN PRN Reason: NAUSEA Pantoprazole Sodium (Protonix Iv*) 40 mg IV DAILY COUNTS [facility]CLUDE 234 BEDS AT [facility] Last Admin: 06/24/16 09:31 Dose: 40 mg Vital Signs 06/24/16 06/24/16 06/24/16 09:00 10:00 10:22 Temperature Pulse Rate 53 76 Respiratory 11 14 14 Rate Blood Pressure 141/67 93/62 (mmHg) O2 Sat by Pulse 96 98 Oximetry 06/24/16 06/24/16 06/24/16 11:00 11:52 12:00 Temperature 99.3 F Pulse Rate 74 66 Respiratory 15 14 Rate Blood Pressure 109/82 107/67 (mmHg) O2 Sat by Pulse 96 97 Oximetry 06/24/16 06/24/16 06/24/16 13:00 14:00 15:00 Temperature Pulse Rate 59 61 87 Respiratory 11 12 16 Rate Blood Pressure 103/65 103/56 100/75 (mmHg) O2 Sat by Pulse 95 98 95 Oximetry 06/24/16 06/24/16 06/24/16 15:22 16:00 17:00 Temperature 98.7 F Pulse Rate 77 67 Respiratory 15 18 Rate Blood Pressure 109/83 100/60 (mmHg) O2 Sat by Pulse 97 96 Oximetry 06/24/16 06/24/16 06/24/16 17:02 18:00 19:00 Temperature Pulse Rate 55 70 81 Respiratory 13 16 6 Rate Blood Pressure 112/78 115/64 (mmHg) O2 Sat by Pulse 91 97 96 Oximetry 06/24/16 06/24/16 06/24/16 19:35 20:00 21:00 Temperature 98.5 F Pulse Rate 74 66 Respiratory 15 17 Rate Blood Pressure 101/47 120/57 (mmHg) O2 Sat by Pulse 97 96 Oximetry 06/24/16 06/24/16 06/24/16 22:00 23:00 23:22 Temperature 98.5 F Pulse Rate 55 64 Respiratory 10 10 Rate Blood Pressure 95/56 115/72 (mmHg) O2 Sat by Pulse 94 96 Oximetry 06/24/16 06/25/16 06/25/16 23:53 00:00 00:01 Temperature Pulse Rate 63 64 63 Respiratory 6 8 9 Rate Blood Pressure 100/67 (mmHg) O2 Sat by Pulse 95 97 95 Oximetry 06/25/16 06/25/16 06/25/16 01:00 02:00 03:00 Temperature Pulse Rate 57 54 65 Respiratory 10 10 20 Rate Blood Pressure 115/56 99/64 120/62 (mmHg) O2 Sat by Pulse 96 94 97 Oximetry 06/25/16 06/25/16 06/25/16 03:10 04:00 05:00 Temperature 98.5 F Pulse Rate 60 57 Respiratory 11 10 Rate Blood Pressure 107/72 120/64 (mmHg) O2 Sat by Pulse 97 97 Oximetry 06/25/16 06/25/16 06/25/16 05:55 06:00 07:00 Temperature Pulse Rate 65 58 Respiratory 16 15 13 Rate Blood Pressure 137/84 140/69 (mmHg) O2 Sat by Pulse 95 95 Oximetry 06/25/16 06/25/16 07:32 08:00 Temperature 98.2 F Pulse Rate 58 Respiratory 12 Rate Blood Pressure 132/71 (mmHg) O2 Sat by Pulse 97 Oximetry Oxygen Devices in Use Now: None Appearance: Middle aged male sitting up in bed, NAD Eyes: No Scleral Icterus Ears/Nose/Mouth/Throat: Mucous Membranes Moist Respiratory: Symmetrical Chest Expansion and Respiratory Effort, Clear to Auscultation Cardiovascular: NL Sounds; No Murmurs; No JVD, RRR, No Edema Abdominal: NL Sounds; No Tenderness; No Distention Extremities: No Clubbing, Cyanosis Skin: No Rash or Ulcers, No Nodules or Sclerosis Neurological: Alert and Oriented x 3, - - ? slighlty improved strength L UE, coordination of the fingers is still off Result Diagrams: 06/25/16 03:05 06/24/16 06:15 Microbiology and Other Data: Microbiology 06/21/16 02:05 Nasal Screen MRSA (PCR)(RADHA) - Final Nasal Mrsa Negative Assess/Plan/Problems-Billing Mr Massey is a 65 yo M who has a h/o CAD, HTN and hyperlipidemia who was found down on the floor and confused and brought to the ER where he underwent CT brain that was read initially as a mass with surrounding edema but when the imaging was re-read by our in house radiologist it is felt the findings on CT are actually a large R MCA CVA with hemorrhagic transformation. - Patient Problems (1) Cerebrovascular accident (CVA) due to occlusion of right middle cerebral artery Current Visit: Yes Status: Acute Code(s): I63.511 - CEREB INFRC D/T UNSP OCCLS OR STENOS OF RIGHT MID CEREB ART SNOMED Code(s): 380434556 Comment: Continue ASA 81mg daily. Continue heparin drip given left ventricular thrombus. Clinically the patient is stable. Will not be able to start coumadin until ~06/26/16. He will need to remain on the heparin drip briding to coumadin until his INR is therapeutic. Continue PT/OT. (2) Rhabdomyolysis Current Visit: Yes Status: Acute Code(s): M62.82 - RHABDOMYOLYSIS SNOMED Code(s): 532872902 Comment: Resolving. (3) Prediabetes Current Visit: Yes Status: Acute Code(s): R73.03 - PREDIABETES SNOMED Code (s): 008846936 Comment: A1c is mildly elevated at 6.2%. Continue education regarding diabetes. (4) Elevated troponin Current Visit: Yes Status: Acute Code(s): R74.8 - ABNORMAL LEVELS OF OTHER SERUM ENZYMES SNOMED Code(s): 147702224 Comment: He has never complained of chest pain. Continue home medication regimen for his h/o CAD. (5) Transaminitis Current Visit: Yes Status: Acute Code(s): R74.0 - NONSPEC ELEV OF LEVELS OF TRANSAMNS & LACTIC ACID DEHYDRGNSE SNOMED Code(s): 951234217 Comment: Improved. (6) Leukocytosis Current Visit: Yes Status: Acute Code(s): D72.829 - ELEVATED WHITE BLOOD CELL COUNT, UNSPECIFIED SNOMED Code(s): 233796376 Comment: Pt likely has a pharyngitis. His WBC count normalized with the initiation of augmentin. Continue for a 7 day course of therapy-done 06/29/16. (7) HTN (hypertension) Current Visit: Yes Status: Acute Code(s): I10 - ESSENTIAL (PRIMARY) HYPERTENSION SNOMED Code(s): 48660308 Comment: BP is under excellent control. Continue metoprolol, enalapril and imdur. Continue to hold amlodipine. (8) Hyperlipidemia Current Visit: Yes Status: Acute Code(s): E78.5 - HYPERLIPIDEMIA, UNSPECIFIED SNOMED Code(s): 25909319 Comment: Continue lipitor. (9) CAD (coronary artery disease) Current Visit: Yes Status: Acute Code(s): I25.10 - ATHSCL HEART DISEASE OF [place] CORONARY ARTERY W/O ANG PCTRS SNOMED Code(s): 24041849 Comment: Continue ASA, metoprolol, enalapril and imdur. (10) DVT prophylaxis Current Visit: Yes Status: Acute Code(s): MTQ0219 - SNOMED Code(s): 256018516 Comment: SCDs/heparin drip (11) Full code status Current Visit: Yes Status: Acute Code(s): Z78.9 - OTHER SPECIFIED HEALTH STATUS SNOMED Code(s): 741541995
[2016-06-25] MEDS ORDERED: Potassium Chlor TAB* 20 MEQ TAB.ER PO ONE (08:19)
[2016-06-25] MEDS: Pantoprazole IV* 40 MG IV SCH (09:34)
[2016-06-25] MEDS: Isosorbide Mononitrate ER TAB* 30 MG PO SCH (09:34)
[2016-06-25] MEDS: Enalapril TAB* 20 MG PO SCH ×2 (09:35→21:25)
[2016-06-25] MEDS: Aspirin EC Low Dose* 81 MG TAB.EC PO SCH (09:35)
[2016-06-25] MEDS: Metoprolol Tartrate TAB* 25 MG PO SCH ×2 (09:35→21:25)
[2016-06-25] MEDS: Amoxicillin/Clavulanate TAB* 500 MG PO SCH ×2 (09:35→21:25)
--- NOTE | 2016-06-25 11:22 | PN ---
Progress Note - Progress Note SOAP: Neurology progress note Date of Service: 06/25/16 Subjective: No acute event overnight. He feels stable. Is concerned about his medical condition. Objective: Vital Signs Temp Pulse Resp BP Pulse Ox 98.2 F 88 17 132/71 99 06/25/16 07:32 06/25/16 10:00 06/25/16 10:00 06/25/16 08:00 06/25/16 10:00 Laboratory Results - last 24 hr 06/24/16 06/25/16 06/25/16 18:35 03:05 03:05 WBC 8.2 RBC 4.60 Hgb 13.7 L Hct 41 L MCV 89 MCH 30 MCHC 34 RDW 13 Plt Count 178 MPV 8 Neut % (Auto) 59.4 Lymph % (Auto) 26.3 [place] % (Auto) 8.7 Eos % (Auto) 5.3 Baso % (Auto) 0.3 Absolute Neuts (auto) 4.9 Absolute Lymphs (auto) 2.2 Absolute Monos (auto) 0.7 Absolute Eos (auto) 0.4 Absolute Basos (auto) 0 Absolute Nucleated RBC 0 Nucleated RBC % 0 APTT 60.8 H 57.0 H General appearance: Alert, cooperative, appears stated age. Mood seems depressed. Neurological exam: Alert and oriented x3, speech normal. Pupils symmetric and reactive to light. Extraocular movements intact with no nystagmus. Visual larose seem intact by confrontation (no clear visual field deficit detected - probably this is some improvement compared to by Dr Moreau seems is better today) Face symmetric, tongue is in midline, palate elevates upward symmetrically. Motor strength 3/5 in deltoid, 4+/5 in elbow flexion and extension. Strength is 5/5 on the right upper and lower extremities. No resting or positional tremor. Finger to nose intact on the right side. slight action tremor on the left. Assessment and Plan: 65-year-old male with right MCA stroke related to left ventricular thrombus. The patient's exam and CT imaging have been stable. Continue with heparin with the goal of keeping the PTT in the lower range of 60 70. Similar to what mentioned in previous day's note, recommend to continue Heparin for about 7 days post stroke, ie around 06/26/16 before switching to Coumadin. Keep the SBP less than 140 mmHg. Stable from neurological standpoint and as long as his blood pressure and neuro status can be monitored with a reasonable frequency, his transfer to the regular floor, from neurological standpoint would be alright. The patient expressed some concern about starting Coumadin. He states that his father was on that medication and had fatal complications. I once again discussed the risk versus benefit of anticoagulation in his case. I told him that there is risk of hemorrhage in the stroke region, however, that risk decreases as we get further away from the onset of stroke. The risk of not treating the thrombus in the left ventricle was also discussed. The patient understands the risks and benefits and is in agreement with continuing anticoagulation. Time spend at bedside at least 30 minutes
[2016-06-25] MEDS: Atorvastatin* 40 MG TAB PO SCH (16:48)
[2016-06-25] MEDS: Heparin DRIP 25,000 UNITS(*) 25,000 UNITS/500 ML BAG IV SCH (21:48)
[2016-06-26] MEDS: Chlorhexidine MOUTHWASH 0.12%* 15 ML UDC SWISH SPIT SCH ×6 (02:18→20:38)
--- NOTE | 2016-06-26 03:45 | PN ---
PROGRESS NOTE: DATE OF EVALUATION: 06/23/16 OVERNIGHT EVENTS: Lc had no acute overnight events. He is complaining of a bit of a headache on the right side today, but has been declining Tylenol. His PTTs have been supratherapeutic and given the headache he was sent down for an additional CT scan this afternoon. Therefore, he has had 2 CT scans today, which have showed stability of the hemorrhagic transformation of his right MCA stroke. MEDICATIONS: 1. Tylenol q.6 as needed. 2. Albuterol as needed. 3. Augmentin 500 twice daily. 4. Aspirin 81 mg daily. 5. Lipitor 40 mg daily. 6. Enalapril 10 mg twice daily. 7. Imdur ER 60 mg daily. 8. Lopressor 50 mg twice daily. 9. Pantoprazole 40 mg daily. PHYSICAL EXAMINATION: Temperature 98.1, blood pressure 116/67, heart rate 56, and oxygen saturation 97% on room air. On examination, Ellen appears well and he is sitting up eating lunch in his hospital bed. He does complain that his left arm and leg are not doing what he wants them to do and he has some pain in the axilla as well as in the left groin and left side of the back at times. His speech is fluent without dysarthria or aphasia. He gets mildly tearful when talking about his condition. Versions are full without nystagmus. There is flattening of the left nasolabial fold. 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 The left lower extremity feels to be nearly full strength at this point. On sensory testing, he has extinction to double simultaneous stimulation in the upper and lower extremities on the left. He was able to sense noxious stimulation of the left knee with eyes closed, but not light touch. LABORATORY DATA: Noncontrast head CTs from 6 a.m. and just before 1 p.m. were personally reviewed and shows stable hemorrhagic transformation within the ischemic infarct of the right MCA territory with associated edema and minimal subfalcine shift to the left. PTT at 2145 last night was 90.2 and at 6:27 this morning was 106. CBC shows white count of 14.2 with crit of 40, 86% neutrophils. Chemistry panel shows improvement in his BUN to 34 and a creatinine of 0.65 and a potassium of 3.4. IMPRESSION: A 65-year-old man with subacute right MCA infarct with hemorrhagic transformation most likely due to left ventricular thrombus. He was started on heparin drip without boluses yesterday with a goal PTT of 50 to 60, but has been supratherapeutic thus far. Thankfully, his hemorrhage has been stable though he does have some headache. We are going to recheck the PTT now and if it continues to be greater than 90, I would like to hold the heparin until the next planned PTT. The goals tomorrow for the heparin drip could be liberalized to between 50 and 70. I told Lc that moving forward the goals would be to have him move to the floor and eventually convert to an oral anticoagulant possibly first converting to Lovenox before that happens and having therapy evaluations, especially to see if he would be a good candidate for the acute rehab here. He would be excited of the possibility of acute rehab as he is very motivated to get as close to his prior level of functioning as possible. Dr. Mendez takes over the service starting this evening and will receive sign out on the patient. [id number]/[facility] #: [id number] MTDD
[2016-06-26 06:04] LABS: Hematocrit 40 % (42-52); Hemoglobin 13.3 g/dl (14.0-18.0); Mean Corpuscular HGB Conc 34 g/dl (31-36); Mean Corpuscular Hemoglobin 30 pg (27-31); Mean Corpuscular Volume 89 fL (80-94); Mean Platelet Volume 9 um3 (7.4-10.4); Red Blood Count 4.45 10^6/ul (4.0-5.4); Red Cell Distribution Width 13 % (10.5-15); White Blood Count 8.8 10^3/ul (3.5-10.8)
[2016-06-26 06:16] LABS: BUN/Creatinine Ratio 26.3 (8-20); Calcium 8.3 mg/dL (8.6-10.3); EGFR African American 125.6 (>60); EGFR Non-African American 97.6 (>60); Potassium 3.8 mmol/L (3.5-5.0)
[2016-06-26] MEDS: Enalapril TAB* 20 MG PO SCH ×2 (09:42→20:36)
[2016-06-26] MEDS: Metoprolol Tartrate TAB* 25 MG PO SCH ×2 (09:43→20:37)
[2016-06-26] MEDS: Amoxicillin/Clavulanate TAB* 500 MG PO SCH ×2 (09:43→20:35)
[2016-06-26] MEDS: Aspirin EC Low Dose* 81 MG TAB.EC PO SCH (09:43)
[2016-06-26] MEDS: Isosorbide Mononitrate ER TAB* 30 MG PO SCH (09:43)
[2016-06-26] MEDS: Pantoprazole IV* 40 MG IV SCH (09:43)
--- NOTE | 2016-06-26 11:23 | PN ---
Progress Note - Progress Note SOAP: Neurology progress note Date of service: 06/26/16 Subjective: Patient was transferred to the tele floor yesterday. No acute events. He is stable; walked this morning and feeling better overall. Mild, intermittent headache occasionally in the right side. Objective: Vital Signs Temp Pulse Resp BP Pulse Ox 98.5 F 78 16 133/86 98 06/26/16 08:09 06/26/16 11:04 06/26/16 11:04 06/26/16 08:09 06/26/16 11:04 Current Medications Acetaminophen (Tylenol Supp*) 650 mg CA Q6H PRN PRN Reason: FEVER/PAIN Albuterol (Ventolin 2.5 Mg/3 Ml Neb.Fiorella*) 2.5 mg INH Q2H PRN PRN Reason: SOB/WHEEZING Amoxicillin/Clavulanate Potassium (Augmentin Tab*) 500 mg PO Q12HR [facility] Stop: 06/29/16 23:00 Last Admin: 06/26/16 09:43 Dose: 500 mg Aspirin (Aspirin Ec Low Dose*) 81 mg PO DAILY [facility] Last Admin: 06/26/16 09:43 Dose: 81 mg Atorvastatin Calcium (Lipitor*) 40 mg PO QPM [facility] Last Admin: 06/25/16 16:48 Dose: 40 mg Chlorhexidine Gluconate (Peridex Mouth Wash 0.12%*) 15 ml SWISH SPIT Q4HR [facility] Last Admin: 06/26/16 09:44 Dose: 15 ml Enalapril Maleate (Vasotec Tab*) 10 mg PO BID [facility] Last Admin: 06/26/16 09:42 Dose: 10 mg Heparin Sodium (Porcine) (Heparin Vial(*)) 0 units IV .PER PROTOCOL [facility] PRN Reason: Protocol Heparin Sodium/Dextrose (Heparin Drip 25,000 Units(*)) 25,000 units in 500 mls @ 0 mls/hr IV .NO BOLUSES PROTOCOL [facility]; Per Protocol PRN Reason: Protocol Last Admin: 06/25/16 21:48 Dose: 10 mls/hr Isosorbide Mononitrate (Imdur Er Tab*) 60 mg PO DAILY [facility] Last Admin: 06/26/16 09:43 Dose: 60 mg Metoprolol Tartrate (Lopressor Tab*) 25 mg PO BID [facility] Last Admin: 06/26/16 09:43 Dose: 25 mg Ondansetron HCl (Zofran Inj*) 4 mg IV Q6H PRN PRN Reason: NAUSEA Pantoprazole Sodium (Protonix Iv*) 40 mg IV DAILY [facility] Last Admin: 06/26/16 09:43 Dose: 40 mg Laboratory Results - last 24 hr 06/26/16 06/26/16 06/26/16 05:23 05:23 05:23 WBC 8.8 RBC 4.45 Hgb 13.3 L Hct 40 L MCV 89 MCH 30 MCHC 34 RDW 13 Plt Count 199 MPV 9 Neut % (Auto) 64.4 Lymph % (Auto) 20.3 L [place] % (Auto) 7.7 Eos % (Auto) 7.4 H Baso % (Auto) 0.2 Absolute Neuts (auto) 5.7 Absolute Lymphs (auto) 1.8 Absolute Monos (auto) 0.7 Absolute Eos (auto) 0.6 Absolute Basos (auto) 0 Absolute Nucleated RBC 0 Nucleated RBC % 0 APTT 46.0 H Sodium 134 Potassium 3.8 Chloride 103 Carbon Dioxide 26 Anion Gap 5 BUN 21 Creatinine 0.80 Est GFR ( Amer) 125.6 Est GFR (Non-Af Amer) 97.6 BUN/Creatinine Ratio 26.3 H Glucose 96 Calcium 8.3 L Neurological exam: Alert and oriented x3, speech normal. Pupils symmetric and reactive to light. Extraocular movements intact with no nystagmus. Visual larose seem intact by confrontation (no clear visual field deficit detected) - Face symmetric with only slight asymmetry in nasolabial folds. Tongue is in midline, palate elevates upward symmetrically. Motor strength 3/5 in deltoid, 4+/5 in elbow flexion and extension. Strength is 5/5 on the right upper and lower extremities. No resting or positional tremor. Finger to nose intact on the right side. Mild action tremor on the left. Assessment and Plan: 65-year-old male with right MCA stroke related to left ventricular thrombus. The patient's exam has been stable. If considering switching to the oral anticoagulation agent, can proceed as this is almost 7-8 days after the onset of acute symptoms. Similar to the previous day, the patient expressed his anxiety regarding starting Coumadin as his father was on that medication and had fatal complications. I once again reviewed the risk versus benefit of anticoagulation in his case. The patient expressed understanding. []
--- NOTE | 2016-06-26 16:30 | PN ---
Subjective Date of Service: 06/26/16 Interval History: Pt is feeling ok. 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 He is leery about going on coumadin but seems to understand the need for it. Objective Active Medications: Acetaminophen (Tylenol Supp*) 650 mg NM Q6H PRN PRN Reason: FEVER/PAIN Albuterol (Ventolin 2.5 Mg/3 Ml Neb.Fiorella*) 2.5 mg INH Q2H PRN PRN Reason: SOB/WHEEZING Amoxicillin/Clavulanate Potassium (Augmentin Tab*) 500 mg PO Q12HR [facility] Stop: 06/29/16 23:00 Last Admin: 06/26/16 09:43 Dose: 500 mg Aspirin (Aspirin Ec Low Dose*) 81 mg PO DAILY [facility] Last Admin: 06/26/16 09:43 Dose: 81 mg Atorvastatin Calcium (Lipitor*) 40 mg PO QPM [facility] Last Admin: 06/25/16 16:48 Dose: 40 mg Chlorhexidine Gluconate (Peridex Mouth Wash 0.12%*) 15 ml SWISH SPIT Q4HR [facility] Last Admin: 06/26/16 14:35 Dose: 15 ml Enalapril Maleate (Vasotec Tab*) 10 mg PO BID [facility] Last Admin: 06/26/16 09:42 Dose: 10 mg Heparin Sodium (Porcine) (Heparin Vial(*)) 0 units IV .PER PROTOCOL [facility] PRN Reason: Protocol Heparin Sodium/Dextrose (Heparin Drip 25,000 Units(*)) 25,000 units in 500 mls @ 0 mls/hr IV .NO BOLUSES PROTOCOL [facility]; Per Protocol PRN Reason: Protocol Last Admin: 06/25/16 21:48 Dose: 10 mls/hr Isosorbide Mononitrate (Imdur Er Tab*) 60 mg PO DAILY [facility] Last Admin: 06/26/16 09:43 Dose: 60 mg Metoprolol Tartrate (Lopressor Tab*) 25 mg PO BID [facility] Last Admin: 06/26/16 09:43 Dose: 25 mg Ondansetron HCl (Zofran Inj*) 4 mg IV Q6H PRN PRN Reason: NAUSEA Pantoprazole Sodium (Protonix Iv*) 40 mg IV DAILY [facility] Last Admin: 06/26/16 09:43 Dose: 40 mg Warfarin Sodium (Coumadin Tab(*)) 5 mg PO DAILY@1700 [place] PRN Reason: Protocol Vital Signs 06/25/16 06/25/16 06/25/16 20:00 21:20 21:24 Temperature 98.6 F Pulse Rate 73 68 Respiratory 12 12 Rate Blood Pressure 111/59 (mmHg) O2 Sat by Pulse 93 93 Oximetry 06/26/16 06/26/16 06/26/16 00:22 04:18 05:54 Temperature 98.2 F 98.2 F Pulse Rate 67 62 67 Respiratory 16 16 16 Rate Blood Pressure 116/66 133/82 (mmHg) O2 Sat by Pulse 96 98 96 Oximetry 06/26/16 06/26/16 06/26/16 08:00 08:09 11:04 Temperature 98.5 F Pulse Rate 71 78 Respiratory 16 18 16 Rate Blood Pressure 133/86 (mmHg) O2 Sat by Pulse 96 98 Oximetry 06/26/16 06/26/16 11:26 15:09 Temperature 98.4 F Pulse Rate 65 78 Respiratory 14 20 Rate Blood Pressure 117/67 98/60 (mmHg) O2 Sat by Pulse 98 97 Oximetry Oxygen Devices in Use Now: None Appearance: Middle aged male sitting up in bed, NAD Eyes: No Scleral Icterus Ears/Nose/Mouth/Throat: Mucous Membranes Moist Respiratory: Symmetrical Chest Expansion and Respiratory Effort, Clear to Auscultation Cardiovascular: NL Sounds; No Murmurs; No JVD, RRR, No Edema Abdominal: NL Sounds; No Tenderness; No Distention Extremities: No Clubbing, Cyanosis Skin: No Rash or Ulcers, No Nodules or Sclerosis Neurological: Alert and Oriented x 3 Result Diagrams: 06/26/16 05:23 06/26/16 05:23 Microbiology and Other Data: Microbiology 06/21/16 02:05 Nasal Screen MRSA (PCR)([facility]) - Final Nasal Mrsa Negative Assess/Plan/Problems-Billing Mr Massey is a 65 yo M who has a h/o CAD, HTN and hyperlipidemia who was found down on the floor and confused and brought to the ER where he underwent CT brain that was read initially as a mass with surrounding edema but when the imaging was re-read by our in house radiologist it is felt the findings on CT are actually a large R MCA CVA with hemorrhagic transformation. - Patient Problems (1) Cerebrovascular accident (CVA) due to occlusion of right middle cerebral artery Current Visit: Yes Status: Acute Code(s): I63.511 - CEREB INFRC D/T UNSP OCCLS OR STENOS OF RIGHT MID CEREB ART SNOMED Code(s): 024659910 Comment: Continue ASA 81mg daily. Continue heparin drip and start coumadin tonight given left ventricular thrombus. Clinically the patient is stable. Continue PT/OT while in the hospital. He will need to remain in the hospital until his INR is therapeutic then possibly [facility] vs home with VNS and PT. Pt is doing too well with PT for PMRU. (2) Rhabdomyolysis Current Visit: Yes Status: Acute Code(s): M62.82 - RHABDOMYOLYSIS SNOMED Code(s): 729766921 Comment: Resolving. (3) Prediabetes Current Visit: Yes Status: Acute Code(s): R73.03 - PREDIABETES SNOMED Code (s): 082647313 Comment: A1c is mildly elevated at 6.2%. Continue education regarding diabetes. (4) Elevated troponin Current Visit: Yes Status: Acute Code(s): R74.8 - ABNORMAL LEVELS OF OTHER SERUM ENZYMES SNOMED Code(s): 888543823 Comment: He has never complained of chest pain. Continue home medication regimen for his h/o CAD. (5) Transaminitis Current Visit: Yes Status: Acute Code(s): R74.0 - NONSPEC ELEV OF LEVELS OF TRANSAMNS & LACTIC ACID DEHYDRGNSE SNOMED Code(s): 636926050 Comment: Improved. (6) Leukocytosis Current Visit: Yes Status: Acute Code(s): D72.829 - ELEVATED WHITE BLOOD CELL COUNT, UNSPECIFIED SNOMED Code(s): 901007204 Comment: Pt likely has a pharyngitis. His WBC count normalized with the initiation of augmentin. Continue for a 7 day course of therapy-done 06/29/16. (7) HTN (hypertension) Current Visit: Yes Status: Acute Code(s): I10 - ESSENTIAL (PRIMARY) HYPERTENSION SNOMED Code(s): 31609111 Comment: BP is under excellent control. Continue metoprolol, enalapril and imdur. Continue to hold amlodipine. (8) Hyperlipidemia Current Visit: Yes Status: Acute Code(s): E78.5 - HYPERLIPIDEMIA, UNSPECIFIED SNOMED Code(s): 95100628 Comment: Continue lipitor. (9) CAD (coronary artery disease) Current Visit: Yes Status: Acute Code(s): I25.10 - ATHSCL HEART DISEASE OF [place] CORONARY ARTERY W/O ANG PCTRS SNOMED Code(s): 13726123 Comment: Continue ASA, metoprolol, enalapril and imdur. (10) DVT prophylaxis Current Visit: Yes Status: Acute Code(s): GAH7131 - SNOMED Code(s): 497878142 Comment: SCDs/heparin drip/coumadin (11) Full code status Current Visit: Yes Status: Acute Code(s): Z78.9 - OTHER SPECIFIED HEALTH STATUS SNOMED Code(s): 687221984
[2016-06-26] MEDS: Atorvastatin* 40 MG TAB PO SCH (17:02)
[2016-06-26] MEDS: Warfarin TAB(*) 5 MG PO SCH (17:08)
[2016-06-27] MEDS: Chlorhexidine MOUTHWASH 0.12%* 15 ML UDC SWISH SPIT SCH ×6 (02:32→21:02)
[2016-06-27] MEDS: Pantoprazole IV* 40 MG IV SCH (09:07)
[2016-06-27] MEDS: Enalapril TAB* 20 MG PO SCH (09:08)
[2016-06-27] MEDS: Aspirin EC Low Dose* 81 MG TAB.EC PO SCH (09:08)
[2016-06-27] MEDS: Amoxicillin/Clavulanate TAB* 500 MG PO SCH ×2 (09:08→20:02)
[2016-06-27] MEDS: Metoprolol Tartrate TAB* 25 MG PO SCH ×2 (09:08→20:03)
[2016-06-27] MEDS: Isosorbide Mononitrate ER TAB* 30 MG PO SCH (09:08)
--- NOTE | 2016-06-27 11:44 | PN ---
Progress Note - Progress Note SOAP: Subjective: [06/27/16 neurology progress note 65 yo h/o CAD, admitted 06/20 with R MCA stroke with some hemorrhagic conversion , at that time of likely several days duration (found down; had rhabdo that improved with hydration), in context of LV thrombus on echo (negative CTA). He has been maintained on a heparin gtt, with plan to begin transition to oral anticoag after about a week, ie just started. Daily imaging from 06/20- showed a stable large R MCA stroke with some intermixed blood products. 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 The risk of further hemorrhage vs repeat embolic stroke due to active thrombus has been reviewed with patient per chart review of prior notes; concur with plan to initiate anticoag with Coumadin ; consider for eval for acute rehab. 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 He has been maintained on a heparin gtt, with plan to begin transition to oral anticoag after about a week, which seems reasonable. We discussed natural history of improvement post stroke and hand coordination exercises. 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
[2016-06-27] MEDS: Atorvastatin* 40 MG TAB PO SCH (17:28)
[2016-06-27] MEDS: Warfarin TAB(*) 5 MG PO SCH (17:29)
[2016-06-27] MEDS: Heparin DRIP 25,000 UNITS(*) 25,000 UNITS/500 ML BAG IV SCH (17:46)
--- NOTE | 2016-06-27 18:40 | PN ---
Subjective Date of Service: 06/27/16 Interval History: HOSPITALIST PROGRESS NOTE Patient seen and examined at bedside. He took a shower earlier today and felt very fatigued after, so he had to cut his PT session short. Denies pain, dyspnea or other complaints. Family History: Unchanged from Admission Social History: Unchanged from Admission Past Medical History: Unchanged from Admission Objective Active Medications: Acetaminophen (Tylenol Supp*) 650 mg [place] Q6H PRN PRN Reason: FEVER/PAIN Albuterol (Ventolin 2.5 Mg/3 Ml Neb.Fiorella*) 2.5 mg INH Q2H PRN PRN Reason: SOB/WHEEZING Amoxicillin/Clavulanate Potassium (Augmentin Tab*) 500 mg PO Q12HR [facility] Stop: 06/29/16 23:00 Last Admin: 06/27/16 09:08 Dose: 500 mg Aspirin (Aspirin Ec Low Dose*) 81 mg PO DAILY [facility] Last Admin: 06/27/16 09:08 Dose: 81 mg Atorvastatin Calcium (Lipitor*) 40 mg PO QPM [facility] Last Admin: 06/27/16 17:28 Dose: 40 mg Chlorhexidine Gluconate (Peridex Mouth Wash 0.12%*) 15 ml SWISH SPIT Q4HR [facility] Last Admin: 06/27/16 17:29 Dose: 15 ml Enalapril Maleate (Vasotec Tab*) 10 mg PO BID [facility] Last Admin: 06/27/16 09:08 Dose: 10 mg Heparin Sodium (Porcine) (Heparin Vial(*)) 0 units IV .PER PROTOCOL [facility] PRN Reason: Protocol Heparin Sodium/Dextrose (Heparin Drip 25,000 Units(*)) 25,000 units in 500 mls @ 0 mls/hr IV .NO BOLUSES PROTOCOL [facility]; Per Protocol PRN Reason: Protocol Last Admin: 06/27/16 17:46 Dose: 13 mls/hr Isosorbide Mononitrate (Imdur Er Tab*) 60 mg PO DAILY [facility] Last Admin: 06/27/16 09:08 Dose: 60 mg Metoprolol Tartrate (Lopressor Tab*) 25 mg PO BID [facility] Last Admin: 06/27/16 09:08 Dose: 25 mg Ondansetron HCl (Zofran Inj*) 4 mg IV Q6H PRN PRN Reason: NAUSEA Pantoprazole Sodium (Protonix Iv*) 40 mg IV DAILY [facility] Last Admin: 06/27/16 09:07 Dose: 40 mg Warfarin Sodium (Coumadin Tab(*)) 5 mg PO DAILY@1700 [facility] PRN Reason: Protocol Last Admin: 06/27/16 17:29 Dose: 5 mg Vital Signs 06/27/16 06/27/16 06/27/16 11:54 15:16 15:44 Temperature 97.4 F 98.8 F Pulse Rate 69 70 71 Respiratory 18 16 18 Rate Blood Pressure 96/60 91/58 (mmHg) O2 Sat by Pulse 97 95 98 Oximetry Oxygen Devices in Use Now: None Appearance: Pleasant gentleman lying in bed in NAD. Eyes: No Scleral Icterus Ears/Nose/Mouth/Throat: Mucous Membranes Moist Neck: Trachea Midline Respiratory: Symmetrical Chest Expansion and Respiratory Effort, Clear to Auscultation Cardiovascular: RRR - Normal S1 and S2 Abdominal: NL Sounds; No Tenderness; No Distention Extremities: No Edema Neurological: Alert and Oriented x 3, NL Muscle Strength and Tone Lines/Tubes/Other Access: Clean, Dry and Intact Peripheral IV Nutrition: Taking PO's Result Diagrams: 06/26/16 05:23 06/26/16 05:23 Assess/Plan/Problems-Billing Assessment: Mr Massey is a 65 yo M who has a h/o CAD, HTN and hyperlipidemia who was found down on the floor and confused and brought to the ER found to have R MCA CVA with hemorrhagic transformation and LV thrombus. - Patient Problems (1) Cerebrovascular accident (CVA) due to occlusion of right middle cerebral artery Comment: - Continue ASA 81mg daily. - Continue heparin drip and coumadin given left ventricular thrombus. - Continue PT/OT while in the hospital. - He will need to remain in the hospital until his INR is therapeutic then possibly [facility] vs home with VNS and PT. (2) Leukocytosis Comment: - Pt likely has a pharyngitis. His WBC count normalized with the initiation of augmentin. - Continue for a 7 day course of therapy - will be completed 06/29/16. (3) HTN (hypertension) Comment: - BP is trending down. - Will continue metoprolol, imdur and reduce (4) Hyperlipidemia Comment: - Continue Atorvastatin. (5) CAD (coronary artery disease) Comment: - Continue ASA, metoprolol, enalapril and imdur. (6) DVT prophylaxis Comment: - SCDs/heparin drip/coumadin. Status and Disposition: Inpatient.
[2016-06-28] MEDS: Chlorhexidine MOUTHWASH 0.12%* 15 ML UDC SWISH SPIT SCH ×6 (01:32→20:07)
[2016-06-28 08:30] LABS: BUN/Creatinine Ratio 24.3 (8-20); Calcium 8.6 mg/dL (8.6-10.3); EGFR African American 137.4 (>60); EGFR Non-African American 106.8 (>60); Potassium 4.1 mmol/L (3.5-5.0)
[2016-06-28] MEDS ORDERED: Enalapril TAB* 5 MG PO SCH (09:00)
[2016-06-28] MEDS: Aspirin EC Low Dose* 81 MG TAB.EC PO SCH (09:36)
[2016-06-28] MEDS: Isosorbide Mononitrate ER TAB* 30 MG PO SCH (09:36)
[2016-06-28] MEDS: Metoprolol Tartrate TAB* 25 MG PO SCH ×2 (09:37→20:07)
[2016-06-28] MEDS: Amoxicillin/Clavulanate TAB* 500 MG PO SCH ×2 (09:37→20:07)
[2016-06-28] MEDS: Pantoprazole IV* 40 MG IV SCH (09:37)
[2016-06-28] MEDS: Warfarin TAB(*) 4 MG PO SCH (17:08)
[2016-06-28] MEDS: Atorvastatin* 40 MG TAB PO SCH (17:08)
--- NOTE | 2016-06-28 17:12 | PN ---
Subjective Date of Service: 06/28/16 Interval History: HOSPITALIST PROGRESS NOTE Patient seen and examined at bedside. Offers no complaints today. Able to work more with PT today. Family History: Unchanged from Admission Social History: Unchanged from Admission Past Medical History: Unchanged from Admission Objective Active Medications: Acetaminophen (Tylenol Supp*) 650 mg [place] Q6H PRN PRN Reason: FEVER/PAIN Albuterol (Ventolin 2.5 Mg/3 Ml Neb.Fiorella*) 2.5 mg INH Q2H PRN PRN Reason: SOB/WHEEZING Amoxicillin/Clavulanate Potassium (Augmentin Tab*) 500 mg PO Q12HR [facility] Stop: 06/29/16 23:00 Last Admin: 06/28/16 09:37 Dose: 500 mg Aspirin (Aspirin Ec Low Dose*) 81 mg PO DAILY [facility] Last Admin: 06/28/16 09:36 Dose: 81 mg Atorvastatin Calcium (Lipitor*) 40 mg PO QPM [facility] Last Admin: 06/27/16 17:28 Dose: 40 mg Chlorhexidine Gluconate (Peridex Mouth Wash 0.12%*) 15 ml SWISH SPIT Q4HR [facility] Last Admin: 06/28/16 14:27 Dose: 15 ml Enalapril Maleate (Vasotec Tab*) 5 mg PO DAILY [facility] Last Admin: 06/28/16 09:36 Dose: 5 mg Heparin Sodium (Porcine) (Heparin Vial(*)) 0 units IV .PER PROTOCOL [facility] PRN Reason: Protocol Heparin Sodium/Dextrose (Heparin Drip 25,000 Units(*)) 25,000 units in 500 mls @ 0 mls/hr IV .NO BOLUSES PROTOCOL [facility]; Per Protocol PRN Reason: Protocol Last Admin: 06/27/16 17:46 Dose: 13 mls/hr Isosorbide Mononitrate (Imdur Er Tab*) 60 mg PO DAILY [facility] Last Admin: 06/28/16 09:36 Dose: 60 mg Metoprolol Tartrate (Lopressor Tab*) 25 mg PO BID [facility] Last Admin: 06/28/16 09:37 Dose: 25 mg Ondansetron HCl (Zofran Inj*) 4 mg IV Q6H PRN PRN Reason: NAUSEA Pantoprazole Sodium (Protonix Iv*) 40 mg IV DAILY [facility] Last Admin: 06/28/16 09:37 Dose: 40 mg Pharmacy Profile Note (Coumadin Daily Reminder*) 1 note FOLLOW UP 1700 [facility] Warfarin Sodium (Coumadin Tab(*)) 4 mg PO DAILY@1700 [facility] PRN Reason: Protocol Vital Signs 06/28/16 06/28/16 11:25 15:14 Temperature 98.7 F 97.8 F Pulse Rate 86 73 Respiratory 16 16 Rate Blood Pressure 101/75 99/57 (mmHg) O2 Sat by Pulse 99 98 Oximetry Oxygen Devices in Use Now: None Appearance: Pleasant elderly male lying in bed in NAD. Eyes: No Scleral Icterus Ears/Nose/Mouth/Throat: Mucous Membranes Moist Neck: Trachea Midline Respiratory: Symmetrical Chest Expansion and Respiratory Effort, Clear to Auscultation Cardiovascular: RRR - Normal S1 and S2 Abdominal: NL Sounds; No Tenderness; No Distention Extremities: No Edema Neurological: Alert and Oriented x 3 Lines/Tubes/Other Access: Clean, Dry and Intact Peripheral IV Nutrition: Taking PO's Result Diagrams: 06/26/16 05:23 06/28/16 07:53 Assess/Plan/Problems-Billing Assessment: Mr Massey is a 65 yo M who has a h/o CAD, HTN and hyperlipidemia who was found down on the floor and confused and brought to the ER found to have R MCA CVA with hemorrhagic transformation and LV thrombus. - Patient Problems (1) Cerebrovascular accident (CVA) due to occlusion of right middle cerebral artery Comment: - Continue ASA 81mg daily. - Continue heparin drip and coumadin given left ventricular thrombus. - Continue PT/OT while in the hospital. - He will need to remain in the hospital until his INR is therapeutic then possibly [facility] vs home with VNS and PT. (2) Leukocytosis Comment: - Pt likely has a pharyngitis. His WBC count normalized with the initiation of augmentin. - Continue for a 7 day course of therapy - will be completed 06/29/16. (3) HTN (hypertension) Comment: - BP is trending down. - Will continue metoprolol, imdur and reduce enalapril. (4) Hyperlipidemia Comment: - Continue Atorvastatin. (5) CAD (coronary artery disease) Comment: - Continue ASA, metoprolol, enalapril and imdur. (6) DVT prophylaxis Comment: - SCDs/heparin drip/coumadin. Status and Disposition: Inpatient.
[2016-06-29] MEDS: Chlorhexidine MOUTHWASH 0.12%* 15 ML UDC SWISH SPIT SCH ×6 (01:23→20:38)
[2016-06-29] MEDS: Amoxicillin/Clavulanate TAB* 500 MG PO SCH ×2 (09:21→20:38)
[2016-06-29] MEDS: Metoprolol Tartrate TAB* 25 MG PO SCH ×2 (09:21→20:38)
[2016-06-29] MEDS: Isosorbide Mononitrate ER TAB* 30 MG PO SCH (09:22)
[2016-06-29] MEDS: Pantoprazole IV* 40 MG IV SCH (09:22)
[2016-06-29] MEDS: Enalapril TAB* 5 MG PO SCH (09:22)
[2016-06-29] MEDS: Aspirin EC Low Dose* 81 MG TAB.EC PO SCH (09:22)
[2016-06-29] MEDS: Collagenase 250 MG/GM OINT* 30 GM TOPICAL SCH (14:19)
[2016-06-29] MEDS: Heparin DRIP 25,000 UNITS(*) 25,000 UNITS/500 ML BAG IV SCH (14:56)
--- NOTE | 2016-06-29 16:39 | PN ---
Subjective Date of Service: 06/29/16 Interval History: HOSPITALIST PROGRESS NOTE Patient seen and examined at bedside. His major complaint is he cannot play his guitar. He does not want to be discharged to SNF as he feels he would not be safe there (his brother in a SNF). Family History: Unchanged from Admission Social History: Unchanged from Admission Past Medical History: Unchanged from Admission Objective Active Medications: Acetaminophen (Tylenol Supp*) 650 mg [place] Q6H PRN PRN Reason: FEVER/PAIN Albuterol (Ventolin 2.5 Mg/3 Ml Neb.Fiorella*) 2.5 mg INH Q2H PRN PRN Reason: SOB/WHEEZING Amoxicillin/Clavulanate Potassium (Augmentin Tab*) 500 mg PO Q12HR [facility] Stop: 06/29/16 23:00 Last Admin: 06/29/16 09:21 Dose: 500 mg Aspirin (Aspirin Ec Low Dose*) 81 mg PO DAILY [facility] Last Admin: 06/29/16 09:22 Dose: 81 mg Atorvastatin Calcium (Lipitor*) 40 mg PO QPM [facility] Last Admin: 06/28/16 17:08 Dose: 40 mg Chlorhexidine Gluconate (Peridex Mouth Wash 0.12%*) 15 ml SWISH SPIT Q4HR [facility] Last Admin: 06/29/16 13:45 Dose: 15 ml Collagenase (Santyl 250 Mg/Gm Oint*) 1 applic TOPICAL DAILY [facility] Last Admin: 06/29/16 14:19 Dose: 1 applic Enalapril Maleate (Vasotec Tab*) 5 mg PO DAILY [facility] Last Admin: 06/29/16 09:22 Dose: 5 mg Heparin Sodium (Porcine) (Heparin Vial(*)) 0 units IV .PER PROTOCOL [facility] PRN Reason: Protocol Heparin Sodium/Dextrose (Heparin Drip 25,000 Units(*)) 25,000 units in 500 mls @ 0 mls/hr IV .NO BOLUSES PROTOCOL [facility]; Per Protocol PRN Reason: Protocol Last Admin: 06/29/16 14:56 Dose: 10 mls/hr Isosorbide Mononitrate (Imdur Er Tab*) 60 mg PO DAILY [facility] Last Admin: 06/29/16 09:22 Dose: 60 mg Metoprolol Tartrate (Lopressor Tab*) 25 mg PO BID [facility] Last Admin: 06/29/16 09:21 Dose: 25 mg Ondansetron HCl (Zofran Inj*) 4 mg IV Q6H PRN PRN Reason: NAUSEA Pantoprazole Sodium (Protonix Iv*) 40 mg IV DAILY [facility] Last Admin: 06/29/16 09:22 Dose: 40 mg Pharmacy Profile Note (Coumadin Daily Reminder*) 1 note FOLLOW UP 1700 [facility] Last Admin: 06/28/16 17:10 Dose: 1 note Warfarin Sodium (Coumadin Tab(*)) 4 mg PO DAILY@1700 [facility] PRN Reason: Protocol Last Admin: 06/28/16 17:08 Dose: 4 mg Vital Signs 06/29/16 06/29/16 06/29/16 11:34 15:39 15:44 Temperature 99.0 F 98.4 F Pulse Rate 80 85 Respiratory 16 12 Rate Blood Pressure 99/74 84/56 100/68 (mmHg) O2 Sat by Pulse 99 98 Oximetry Oxygen Devices in Use Now: None Appearance: Pleasant gentleman sitting up in a chair in NAD. Eyes: No Scleral Icterus Ears/Nose/Mouth/Throat: Mucous Membranes Moist Neck: Trachea Midline Respiratory: Symmetrical Chest Expansion and Respiratory Effort Neurological: Alert and Oriented x 3, - - Mild left hemiparesis Lines/Tubes/Other Access: Clean, Dry and Intact Peripheral IV Nutrition: Taking PO's Result Diagrams: 06/26/16 05:23 06/28/16 07:53 Assess/Plan/Problems-Billing Assessment: Mr Massey is a 65 yo M who has a h/o CAD, HTN and hyperlipidemia who was found down on the floor and confused and brought to the ER found to have R MCA CVA with hemorrhagic transformation and LV thrombus. - Patient Problems (1) Cerebrovascular accident (CVA) due to occlusion of right middle cerebral artery Comment: - Continue ASA 81mg daily. - Continue heparin drip and coumadin given left ventricular thrombus. - Continue PT/OT while in the hospital. - He will need to remain in the hospital until his INR is therapeutic then possibly SNF. (2) HTN (hypertension) Comment: - BP is still on the lower side, althoug he's asymptomatic. - Will continue metoprolol, enalapril, and reduce imdur. (3) Hyperlipidemia Comment: - Continue Atorvastatin. (4) CAD (coronary artery disease) Comment: - Continue ASA, metoprolol, enalapril and imdur. (5) DVT prophylaxis Comment: - SCDs/heparin drip/coumadin. Status and Disposition: Inpatient.
[2016-06-29] MEDS: Warfarin TAB(*) 4 MG PO SCH (17:03)
[2016-06-29] MEDS: Atorvastatin* 40 MG TAB PO SCH (17:03)
[2016-06-30] MEDS: Chlorhexidine MOUTHWASH 0.12%* 15 ML UDC SWISH SPIT SCH ×6 (02:30→21:03)
[2016-06-30] MEDS: Collagenase 250 MG/GM OINT* 30 GM TOPICAL SCH ×2 (09:57→11:00)
[2016-06-30] MEDS: Isosorbide Mononitrate ER TAB* 30 MG PO SCH (09:58)
[2016-06-30] MEDS: Metoprolol Tartrate TAB* 25 MG PO SCH ×3 (09:58→21:02)
[2016-06-30] MEDS: Aspirin EC Low Dose* 81 MG TAB.EC PO SCH (09:58)
[2016-06-30] MEDS: Enalapril TAB* 5 MG PO SCH (09:59)
[2016-06-30] MEDS: Pantoprazole IV* 40 MG IV SCH (10:00)
--- NOTE | 2016-06-30 14:26 | PN ---
Subjective Date of Service: 06/30/16 Interval History: HOSPITALIST PROGRESS NOTE Patient seen and examined at bedside. He feels anxious and depressed. Very concerned with his discharge to SNF. Told me again about his brother bad experience and passing in a SNF. He's afraid he won't receive the attention he needs. Did not sleep well last night and feels tired. Appetite is good, no N/V. Family History: Unchanged from Admission Social History: Unchanged from Admission Past Medical History: Unchanged from Admission Objective Active Medications: Acetaminophen (Tylenol Supp*) 650 mg [place] Q6H PRN PRN Reason: FEVER/PAIN Albuterol (Ventolin 2.5 Mg/3 Ml Neb.Fiorella*) 2.5 mg INH Q2H PRN PRN Reason: SOB/WHEEZING Aspirin (Aspirin Ec Low Dose*) 81 mg PO DAILY [facility] Last Admin: 06/30/16 09:58 Dose: 81 mg Atorvastatin Calcium (Lipitor*) 40 mg PO QPM [facility] Last Admin: 06/29/16 17:03 Dose: 40 mg Chlorhexidine Gluconate (Peridex Mouth Wash 0.12%*) 15 ml SWISH SPIT Q4HR [facility] Last Admin: 06/30/16 10:00 Dose: 15 ml Collagenase (Santyl 250 Mg/Gm Oint*) 1 applic TOPICAL DAILY [facility] Last Admin: 06/30/16 11:00 Dose: 1 applic Enalapril Maleate (Vasotec Tab*) 5 mg PO DAILY [facility] Last Admin: 06/30/16 09:59 Dose: Not Given Heparin Sodium (Porcine) (Heparin Vial(*)) 0 units IV .PER PROTOCOL [facility] PRN Reason: Protocol Heparin Sodium/Dextrose (Heparin Drip 25,000 Units(*)) 25,000 units in 500 mls @ 0 mls/hr IV .NO BOLUSES PROTOCOL [facility]; Per Protocol PRN Reason: Protocol Last Admin: 06/29/16 14:56 Dose: 10 mls/hr Isosorbide Mononitrate (Imdur Er Tab*) 30 mg PO DAILY [facility] Last Admin: 06/30/16 09:58 Dose: 30 mg Metoprolol Tartrate (Lopressor Tab*) 25 mg PO BID [facility] Last Admin: 06/30/16 10:00 Dose: Not Given Ondansetron HCl (Zofran Inj*) 4 mg IV Q6H PRN PRN Reason: NAUSEA Pantoprazole Sodium (Protonix Iv*) 40 mg IV DAILY [facility] Last Admin: 06/30/16 10:00 Dose: 40 mg Pharmacy Profile Note (Coumadin Daily Reminder*) 1 note FOLLOW UP 1700 [facility] Last Admin: 06/29/16 17:03 Dose: 1 note Warfarin Sodium (Coumadin Tab(*)) 4 mg PO DAILY@1700 [facility] PRN Reason: Protocol Last Admin: 06/29/16 17:03 Dose: 4 mg Vital Signs 06/30/16 06/30/16 06/30/16 08:46 09:30 11:40 Temperature 97.2 F 97.4 F Pulse Rate 79 68 80 Respiratory 16 14 16 Rate Blood Pressure 122/79 110/69 (mmHg) O2 Sat by Pulse 98 98 98 Oximetry Oxygen Devices in Use Now: None Appearance: Pleasant gentleman sitting up in bed in [facility], eating breakfast. Eyes: No Scleral Icterus, PERRLA Ears/Nose/Mouth/Throat: Mucous Membranes Moist Neck: Trachea Midline Respiratory: Symmetrical Chest Expansion and Respiratory Effort, Clear to Auscultation Cardiovascular: RRR - Normal S1 and S2 Abdominal: NL Sounds; No Tenderness; No Distention Extremities: No Edema Skin: - - Left buttoc stage II pressure ulcer with black schar Neurological: Alert and Oriented x 3, - - Mild left hemiparesis Lines/Tubes/Other Access: Clean, Dry and Intact Peripheral IV Nutrition: Taking PO's Result Diagrams: 06/26/16 05:23 06/28/16 07:53 Assess/Plan/Problems-Billing Assessment: Mr Massey is a 65 yo M who has a h/o CAD s/p CANG and stents, HTN and hyperlipidemia who was found down on the floor and confused and brought to the ER found to have R MCA CVA with hemorrhagic transformation and LV thrombus. - Patient Problems (1) Cerebrovascular accident (CVA) due to occlusion of right middle cerebral artery Comment: - Continue ASA 81mg daily. - Continue heparin drip and coumadin given left ventricular thrombus. - Continue PT/OT while in the hospital. - He will need to remain in the hospital until his INR is therapeutic then plan for SNF. - INR is 2.07 today - needs 24h of overlap and will d/c heparin tomorrow. (2) HTN (hypertension) Comment: - BP is trending up. - Will continue metoprolol, enalapril, and imdur with reduced doses. (3) Hyperlipidemia Comment: - Continue Atorvastatin. (4) CAD (coronary artery disease) Comment: - Continue ASA, metoprolol, enalapril and imdur. (5) Depression Comment: - Patient likely has reactive depression secondary to his health events. - I believe he would benefit of an SSRI, but he would prefer not to add any medications to his regimen at this time. - Will continue to monitor. (6) Stage II pressure ulcer of sacral region Comment: - Present on admission, secondary to staying on the floor for hours prior to admission. - Continue daily dressings with Santyl. (7) DVT prophylaxis Comment: - SCDs/heparin drip/coumadin. (8) Full code status Status and Disposition: Inpatient. If INR is therapeutic tomorrow, we can d/c heparin drip and patient would be stable to be discharged to SNF to continue his rehab process. Patient is very concerned with the care he'll receive in a SNF as he had bad experiences with other family members. field insurance sales manager to assist with discharge process.
[2016-06-30] MEDS: Warfarin TAB(*) 4 MG PO SCH (17:03)
[2016-06-30] MEDS: Atorvastatin* 40 MG TAB PO SCH (17:03)
[2016-07-01] MEDS: Chlorhexidine MOUTHWASH 0.12%* 15 ML UDC SWISH SPIT SCH ×6 (02:21→21:39)
[2016-07-01] MEDS: Metoprolol Tartrate TAB* 25 MG PO SCH ×2 (10:30→21:38)
[2016-07-01] MEDS: Enalapril TAB* 5 MG PO SCH (10:30)
[2016-07-01] MEDS: Aspirin EC Low Dose* 81 MG TAB.EC PO SCH (10:30)
[2016-07-01] MEDS: Isosorbide Mononitrate ER TAB* 30 MG PO SCH (10:30)
[2016-07-01] MEDS: Pantoprazole IV* 40 MG IV SCH (10:31)
[2016-07-01] MEDS: Collagenase 250 MG/GM OINT* 30 GM TOPICAL SCH (11:37)
--- NOTE | 2016-07-01 15:13 | PN ---
Subjective Date of Service: 07/01/16 Interval History: HOSPITALIST PROGRESS NOTE Patient seen and examined at bedside. He offers no new complaints today. Family History: Unchanged from Admission Social History: Unchanged from Admission Past Medical History: Unchanged from Admission Objective Active Medications: Acetaminophen (Tylenol Supp*) 650 mg [place] Q6H PRN PRN Reason: FEVER/PAIN Albuterol (Ventolin 2.5 Mg/3 Ml Neb.Fiorella*) 2.5 mg INH Q2H PRN PRN Reason: SOB/WHEEZING Aspirin (Aspirin Ec Low Dose*) 81 mg PO DAILY [facility] Last Admin: 07/01/16 10:30 Dose: 81 mg Atorvastatin Calcium (Lipitor*) 40 mg PO QPM [facility] Last Admin: 06/30/16 17:03 Dose: 40 mg Chlorhexidine Gluconate (Peridex Mouth Wash 0.12%*) 15 ml SWISH SPIT Q4HR [facility] Last Admin: 07/01/16 10:30 Dose: 15 ml Collagenase (Santyl 250 Mg/Gm Oint*) 1 applic TOPICAL DAILY [facility] Last Admin: 07/01/16 11:37 Dose: 1 applic Enalapril Maleate (Vasotec Tab*) 5 mg PO DAILY [facility] Last Admin: 07/01/16 10:30 Dose: 5 mg Isosorbide Mononitrate (Imdur Er Tab*) 30 mg PO DAILY [facility] Last Admin: 07/01/16 10:30 Dose: 30 mg Metoprolol Tartrate (Lopressor Tab*) 25 mg PO BID [facility] Last Admin: 07/01/16 10:30 Dose: 25 mg Omeprazole (Prilosec Cap*) 20 mg PO DAILY@0600 [facility] Ondansetron HCl (Zofran Inj*) 4 mg IV Q6H PRN PRN Reason: NAUSEA Pharmacy Profile Note (Coumadin Daily Reminder*) 1 note FOLLOW UP 1700 [facility] Last Admin: 06/30/16 17:03 Dose: 1 note Warfarin Sodium (Coumadin Tab(*)) 4 mg PO DAILY@1700 [facility] PRN Reason: Protocol Last Admin: 06/30/16 17:03 Dose: 4 mg Vital Signs 07/01/16 07/01/16 07:50 11:37 Temperature 97.2 F Pulse Rate 77 Respiratory 15 16 Rate Blood Pressure 99/65 (mmHg) O2 Sat by Pulse 100 Oximetry Oxygen Devices in Use Now: None Appearance: Pleasant gentleman lying in bed in NAD. Eyes: No Scleral Icterus Ears/Nose/Mouth/Throat: Mucous Membranes Moist Neck: Trachea Midline Respiratory: Symmetrical Chest Expansion and Respiratory Effort, Clear to Auscultation Cardiovascular: RRR - Normal S1 and S2 Abdominal: NL Sounds; No Tenderness; No Distention Extremities: No Edema Neurological: Alert and Oriented x 3, - - Mild left hemiparesis Lines/Tubes/Other Access: Clean, Dry and Intact Peripheral IV Nutrition: Taking PO's Result Diagrams: 06/26/16 05:23 06/28/16 07:53 Assess/Plan/Problems-Billing Assessment: Mr Massey is a 65 yo M who has a h/o CAD s/p CANG and stents, HTN and hyperlipidemia who was found down on the floor and confused and brought to the ER found to have R MCA CVA with hemorrhagic transformation and LV thrombus. - Patient Problems (1) Cerebrovascular accident (CVA) due to occlusion of right middle cerebral artery Comment: - Continue ASA 81mg daily. - Continue PT/OT while in the hospital. - INR is 2.08 today - d/c heparin. - Patient is stable for discharge, but is scared about discharge, as he feels he won't receive close medical attention in the SNF. Patient reassured about care. - He has appealed his discharge. (2) HTN (hypertension) Comment: - BP is trending up. - Will continue metoprolol, enalapril, and imdur with reduced doses. (3) Hyperlipidemia Comment: - Continue Atorvastatin. (4) CAD (coronary artery disease) Comment: - Continue ASA, metoprolol, enalapril and imdur. (5) Depression Comment: - Patient likely has reactive depression secondary to his health events. - I believe he would benefit of an SSRI, but he would prefer not to add any medications to his regimen at this time. - Will continue to monitor. (6) Stage II pressure ulcer of sacral region Comment: - Present on admission, secondary to staying on the floor for hours prior to admission. - Continue daily dressings with Santyl. (7) DVT prophylaxis Comment: - Coumadin. (8) Full code status Status and Disposition: Inpatient. Stable to be discharged to SNF to continue his rehab process. Patient is very concerned with the care he'll receive in a SNF as he had bad experiences with other family members. manager ship assisted with appeal process.
[2016-07-01] MEDS: Atorvastatin* 40 MG TAB PO SCH (17:01)
[2016-07-01] MEDS: Warfarin TAB(*) 4 MG PO SCH (17:01)
[2016-07-02] MEDS: Chlorhexidine MOUTHWASH 0.12%* 15 ML UDC SWISH SPIT SCH ×6 (02:22→20:29)
[2016-07-02] MEDS: Omeprazole CAP* 20 MG PO SCH (05:24)
[2016-07-02] MEDS: Isosorbide Mononitrate ER TAB* 30 MG PO SCH (08:58)
[2016-07-02] MEDS: Docusate CAP* 100 MG PO SCH ×2 (08:58→20:27)
[2016-07-02] MEDS: Metoprolol Tartrate TAB* 25 MG PO SCH ×3 (08:58→20:28)
[2016-07-02] MEDS: Aspirin EC Low Dose* 81 MG TAB.EC PO SCH (08:58)
[2016-07-02] MEDS: Enalapril TAB* 5 MG PO SCH (08:58)
[2016-07-02] MEDS: Collagenase 250 MG/GM OINT* 30 GM TOPICAL SCH (08:59)
--- NOTE | 2016-07-02 12:00 | PN ---
Subjective Date of Service: 07/02/16 Interval History: HOSPITALIST PROGRESS NOTE Patient seen and examined at bedside. He is in good spirits today, optimistic about his future, planning what to plant for summer (had a very good tomato and zucchini crop last year). Walked around the unit with PT and feels steadier. Family History: Unchanged from Admission Social History: Unchanged from Admission Past Medical History: Unchanged from Admission Objective Active Medications: Acetaminophen (Tylenol Supp*) 650 mg [place] Q6H PRN PRN Reason: FEVER/PAIN Albuterol (Ventolin 2.5 Mg/3 Ml Neb.Fiorella*) 2.5 mg INH Q2H PRN PRN Reason: SOB/WHEEZING Aspirin (Aspirin Ec Low Dose*) 81 mg PO DAILY [facility] Last Admin: 07/02/16 08:58 Dose: 81 mg Atorvastatin Calcium (Lipitor*) 40 mg PO QPM [facility] Last Admin: 07/01/16 17:01 Dose: 40 mg Chlorhexidine Gluconate (Peridex Mouth Wash 0.12%*) 15 ml SWISH SPIT Q4HR [facility] Last Admin: 07/02/16 08:59 Dose: 15 ml Collagenase (Santyl 250 Mg/Gm Oint*) 1 applic TOPICAL DAILY [facility] Last Admin: 07/02/16 08:59 Dose: 1 applic Docusate Sodium (Colace Cap*) 100 mg PO BID [facility] Last Admin: 07/02/16 08:58 Dose: 100 mg Enalapril Maleate (Vasotec Tab*) 5 mg PO DAILY [facility] Last Admin: 07/02/16 08:58 Dose: 5 mg Isosorbide Mononitrate (Imdur Er Tab*) 30 mg PO DAILY [facility] Last Admin: 07/02/16 08:58 Dose: 30 mg Metoprolol Tartrate (Lopressor Tab*) 25 mg PO BID [facility] Last Admin: 07/02/16 09:00 Dose: Not Given Omeprazole (Prilosec Cap*) 20 mg PO DAILY@0600 [facility] Last Admin: 07/02/16 05:24 Dose: 20 mg Ondansetron HCl (Zofran Inj*) 4 mg IV Q6H PRN PRN Reason: NAUSEA Pharmacy Profile Note (Coumadin Daily Reminder*) 1 note FOLLOW UP 1700 [facility] Last Admin: 07/01/16 17:01 Dose: 1 note Warfarin Sodium (Coumadin Tab(*)) 4 mg PO DAILY@1700 [place] PRN Reason: Protocol Last Admin: 07/01/16 17:01 Dose: 4 mg Vital Signs 07/02/16 07/02/16 07:29 08:00 Temperature 97.4 F Pulse Rate 77 Respiratory 16 16 Rate Blood Pressure 94/73 (mmHg) O2 Sat by Pulse 100 Oximetry Oxygen Devices in Use Now: None Appearance: Pleasant gentleman sitting up in a chair in NAD. Eyes: No Scleral Icterus Ears/Nose/Mouth/Throat: Mucous Membranes Moist Neck: Trachea Midline Respiratory: Symmetrical Chest Expansion and Respiratory Effort, Clear to Auscultation Cardiovascular: RRR - Normal S1 and S2 Abdominal: NL Sounds; No Tenderness; No Distention Extremities: No Edema Neurological: Alert and Oriented x 3, - - Mild Lines/Tubes/Other Access: Clean, Dry and Intact Peripheral IV Nutrition: Taking PO's Result Diagrams: 06/26/16 05:23 06/28/16 07:53 Assess/Plan/Problems-Billing Assessment: Mr Massey is a 65 yo M who has a h/o CAD s/p CANG and stents, HTN and hyperlipidemia who was found down on the floor and confused and brought to the ER found to have R MCA CVA with hemorrhagic transformation and LV thrombus. - Patient Problems (1) Cerebrovascular accident (CVA) due to occlusion of right middle cerebral artery Comment: - Continue ASA 81mg daily. - Continue PT/OT while in the hospital. - INR is 2.4. - Patient is stable for discharge, but is scared about discharge, as he feels he won't receive close medical attention in the SNF. Patient reassured about care. - He has appealed his discharge but is now agreeable with discharge in AM. (2) HTN (hypertension) Comment: - BP is trending up. - Will continue metoprolol, enalapril, and imdur with reduced doses and holding parameters. (3) Hyperlipidemia Comment: - Continue Atorvastatin. (4) CAD (coronary artery disease) Comment: - Continue ASA, metoprolol, enalapril and imdur. (5) Depression Comment: - Patient likely has reactive depression secondary to his health events. - I believe he would benefit of an SSRI, but he would prefer not to add any medications to his regimen at this time. - Will continue to monitor. (6) Stage II pressure ulcer of sacral region Comment: - Present on admission, secondary to staying on the floor for hours prior to admission. - Continue daily dressings with Santyl. (7) DVT prophylaxis Comment: - Coumadin. (8) Full code status Status and Disposition: Inpatient. Stable to be discharged to SNF to continue his rehab process. Patient is very concerned with the care he'll receive in a SNF as he had bad experiences with other family members. sheep farm manager assisted with appeal process. He's now agreeable with d/c in AM.
[2016-07-02] MEDS: Atorvastatin* 40 MG TAB PO SCH (17:39)
[2016-07-02] MEDS: Warfarin TAB(*) 4 MG PO SCH (17:39)
--- NOTE | 2016-07-02 22:28 | DS ---
DISCHARGE SUMMARY: DATE OF ADMISSION: 06/21/16 DATE OF DISCHARGE: 07/03/16 PRIMARY CARE PROVIDER: Yanely Puga NP. DISCHARGE DIAGNOSES: 1. Right middle cerebral artery cerebrovascular accident, embolic. 2. Left ventricle thrombus. 3. Rhabdomyolysis. 4. Glucose intolerance. 5. Elevated troponin. 6. Transaminitis. 7. Leukocytosis. 8. Possible pharyngitis. 9. Hypokalemia. 10. Stage 2 sacral decubitus, present on admission. SECONDARY DIAGNOSES: 1. Coronary artery disease, status post myocardial infarction, status post 3- vessel coronary artery bypass graft and multiple stents. 2. Hypertension. 3. Hyperlipidemia. MEDICATION LIST: 1. Cholecalciferol 2000 units p.o. daily. 2. Magnesium oxide 400 mg p.o. daily. 3. Aspirin 81 mg p.o. daily. 4. Atorvastatin 40 mg p.o. daily. 5. Calcium citrate 1000 mg p.o. daily. New medications: 1. Warfarin 4 mg p.o. daily. 2. Omeprazole 20 mg p.o. daily. 3. Colace 100 mg p.o. b.i.d. 4. Santyl ointment to left buttock wound daily. Medication change: 1. Metoprolol tartrate, was reduced to 25 mg p.o. b.i.d., hold for SBP less than 100. 2. Isosorbide mononitrate, was reduced to 30 mg p.o. daily, hold for SBP less than 100. 3. Enalapril, was reduced to 5 mg p.o. daily, hold for SBP less than 100. HOSPITAL COURSE: Mr. Massey is a 65-year-old male with a past medical history as stated above that was found on the floor of his home for an uncertain length of time. EMS was called and he was able to answer some questions, but he was not oriented to situation. He reported increased falls over the week preceding his admission associated with getting clumsy. For more details about his presentation, I refer you to his history and physical. On physical examination , he was found to have left facial droop, left hemiparesis. His initial CT of the brain without contrast showed a subacute infarct of the right MCA territory with hemorrhagic transformation. There is minimal subfalcine and transtentorial shift. Initially, there was some question if this lesion could represent a tumor with vasogenic edema or if it represented a right MCA CVA. The patient was admitted to the intensive care for further evaluation. The patient had a CTA of the head that showed hypoattenuation of the right MCA territory consistent with a subacute infarct. Hypoperfusion of the anterior temporal pole and right inferior frontal lobe with no appreciable large vessel occlusion or stenosis. There was no aneurysm or vascular malformation and no internal carotid artery stenosis. The patient had a transthoracic echocardiogram that showed that the left ventricular chamber size is normal, septal wall hypertrophy was observed. There is increased basal septal hypertrophy noted without evidence of an increased gradient across the left ventricular outflow tract. Estimated ejection fraction is 50% to 55%, a thrombus is visualized in the left ventricular apex. The patient was seen in consultation by Neurology (Dr. Patti Moreau) and her impression was the patient was a 65-year-old male with a history of significant cardiac disease who presented to the emergency department with a subacute right MCA stroke with some associated hemorrhagic transformation. He is actually doing remarkably well, currently considering the territory of infarction indicated on his scans. Unfortunately, he is found to have a left ventricular thrombus, but currently also has some hemorrhagic transformation within his area of stroke, which currently precludes anticoagulation. At that time, she recommended starting him on a baby aspirin and she will repeat the CAT scan tomorrow to assess stability or improvement in the area of hemorrhagic transformation. If he should have any acute worsening of his neurologic status , he should go immediately for repeat noncontrast head CT for evaluation. If his area of hemorrhagic transformation appears stable to improved tomorrow, she would consider starting heparin drip without boluses given the presence of the cardiac thrombus and significant risk for further embolization from that source. In addition, it appears that he has glucose intolerance versus newly diagnosed diabetes, given his A1c of 6.2 and we will need attention to this risk factor as an outpatient. His lipids appear adequately treated at this point with Lipitor. Continue to let his blood pressure ride on the higher side , but we will consider beginning to bring that down the next day given that we are likely seeing the stroke in the subacute phase. The patient had multiple followup CTs of the brain that showed unstable subacute infarct of the right MCA. The patient was followed by Neurology and on 06/22/16, the patient was started on a heparin drip without boluses. Following Neurology recommendation, the patient was continued on heparin and with Neurology guidance he was started on warfarin. Multiple conversations were held about risks and benefits of therapy with warfarin and he was in agreement with anticoagulation. Warfarin was started on 06/26/16, as recommended by Neurology and this was continued until he had two therapeutic INRs. He has had unstable INR on a dose of 4 mg of warfarin. On admission, the patient was also found to have rhabdomyolysis with a CPK of 3200. He was also found to have elevation of troponin of 0.42, trending down. This could be secondary to his stroke. It could also be associated with his rhabdomyolysis. He had no complaints of chest pain or dyspnea and his EKG showed no acute ischemic changes. His case was discussed with Cardiology and they felt that priority at this point was treatment of his stroke and to follow up with Dr. Smith as outpatient. The patient also developed pharyngitis while in the hospital. He was afebrile, but with sore throat and leukocytosis. This was treated with Augmentin and his symptoms had resolved. The patient's blood pressure on admission was on the higher side, but when his medications were resumed in its usual doses his blood pressure trended down to systolics below 100, so the medications were adjusted and we had to decrease the dose of his metoprolol and enalapril. The goal would be to try and keep his systolic blood pressure greater than 100. The patient was seen in followup by Neurology once again (Dr. Migue James ) and he agreed with a plan for heparin drip or anticoagulation with warfarin and he once again reviewed with the patient the risk of further hemorrhage versus a repeat embolic stroke. He added that half-way if the patient has repeat echoes that demonstrate clot resolution, he may at that time be able to transition to antiplatelet agent use only, but this decision will need outpatient neurology and cardiology input. The patient was found to have OT and PT needs. He was initially evaluated by [facility], but a bed was not offered. The plan at this point is for him to pursue rehabilitation at [facility]. He has another INR ordered for 07/04/16 and he' ll need close monitoring as outpatient. PHYSICAL EXAMINATION: Vital Signs: Temperature 97.4, heart rate is 71, respiratory rate is 16, oxygen saturation 98% on room air, blood pressure is 104 /64. General: The patient is a pleasant gentleman, sitting up in bed, in no acute distress. CVS: Normal S1 and S2. Regular rate and rhythm. Chest: Breath sounds present bilaterally with no added sounds. Abdomen is soft, nontender, nondistended. Bowel sounds are present. Extremities: No edema. Neuro: He is alert, awake, and oriented x3. Able to move all 4 extremities, but still has some mild left hemiparesis. DIET: Heart healthy diet. ACTIVITY: Continue PT/OT as tolerated. DRESSING CHANGES: Daily dressing changes to left buttock pressure ulcer with Santyl to the wound bed, cover with Vaseline gauze, dry gauze and Mepilex and change daily. DISPOSITION: To [facility]. STATUS WHILE IN THE HOSPITAL: Inpatient. Please keep in mind that it is is a summarized version of this patient's complex and prolonged hospital stay. If you need any more information, please feel free to call me at [phone] or please obtain the full medical records. The patient received extensive education about his diagnosis and treatment and symptoms that should prompt his return to the emergency room. TIME SPENT: Approximately 50 minutes was spent to complete this discharge. CC: Yanely Puga NP, [facility], phone # [phone]; Dr. Amanda Donahue, [facility] * [id number]/[facility] #: [id number] [facility]
[2016-07-03] MEDS: Chlorhexidine MOUTHWASH 0.12%* 15 ML UDC SWISH SPIT SCH ×3 (03:26→09:26)
[2016-07-03] MEDS: Omeprazole CAP* 20 MG PO SCH (05:28)
[2016-07-03] MEDS: Aspirin EC Low Dose* 81 MG TAB.EC PO SCH (09:22)
[2016-07-03] MEDS: Enalapril TAB* 5 MG PO SCH (09:26)
[2016-07-03] MEDS: Docusate CAP* 100 MG PO SCH (09:26)
[2016-07-03] MEDS: Metoprolol Tartrate TAB* 25 MG PO SCH (09:26)
[2016-07-03] MEDS: Isosorbide Mononitrate ER TAB* 30 MG PO SCH (09:26)
[2016-07-03 10:39] VITALS: BP 135/85
== END 2016-07-03 13:35 | DRG 64 ==
LOC: ED 21:35 → ICU 06-21 00:50 → MEDTELE 06-25 08:12
PROVIDERS: ADMIT Hospitalist; ATTEND Internal Medicine
DX: I63.411 Cerebral infarction due to embolism of right middle cerebral artery (principal); I61.9 Nontraumatic intracerebral hemorrhage, unspecified; I24.0 Acute coronary thrombosis not resulting in myocardial infarction; M62.82 Rhabdomyolysis; G81.94 Hemiplegia, unspecified affecting left nondominant side; L89.152 Pressure ulcer of sacral region, stage 2; E74.39 Other disorders of intestinal carbohydrate absorption; R79.89 Other specified abnormal findings of blood chemistry; R74.0 Nonspecific elevation of levels of transaminase and lactic acid dehydrogenase [LDH]; D72.829 Elevated white blood cell count, unspecified; J02.9 Acute pharyngitis, unspecified; E87.6 Hypokalemia; I25.10 Atherosclerotic heart disease of native coronary artery without angina pectoris; I10 Essential (primary) hypertension; E78.5 Hyperlipidemia, unspecified; E78.00 Pure hypercholesterolemia, unspecified; H91.90 Unspecified hearing loss, unspecified ear; M54.5 Low back pain; R73.03 Prediabetes; R51 Headache; F32.9 Major depressive disorder, single episode, unspecified; R29.810 Facial weakness; I25.2 Old myocardial infarction; Z95.5 Presence of coronary angioplasty implant and graft; Z95.1 Presence of aortocoronary bypass graft; Z79.82 Long term (current) use of aspirin; Z79.01 Long term (current) use of anticoagulants; Z82.49 Family history of ischemic heart disease and other diseases of the circulatory system; Z72.89 Other problems related to lifestyle; Z87.891 Personal history of nicotine dependence; Z83.3 Family history of diabetes mellitus; Z83.49 Family history of other endocrine, nutritional and metabolic diseases
CPT/HCPCS: 36415; 70450; 70496; 70498; 70551; 71010; 72100; 80048; 80053; 80061; 80076; 80307; 80320; 81003; 81015; 82272; 82550; 83036; 83605; 83735; 84484; 85025; 85610; 85730; 87641; 87651; 93005; 93306; 94760; A9270-GY; G0480; G9174-GN-CJ; G9175-GN-CH; J1100; J3490; Q9967

== ENCOUNTER 2016-09-30 15:34 | Emergency (ER) | payer MEDICARE ==
[2016-09-30 16:35] LABS: Hematocrit 42 % (42-52); Hemoglobin 14.2 g/dl (14.0-18.0); Mean Corpuscular HGB Conc 34 g/dl (31-36); Mean Corpuscular Hemoglobin 30 pg (27-31); Mean Corpuscular Volume 90 fL (80-94); Mean Platelet Volume 8 um3 (7.4-10.4); Red Blood Count 4.72 10^6/ul (4.0-5.4); Red Cell Distribution Width 14 % (10.5-15); White Blood Count 7.6 10^3/ul (3.5-10.8)
[2016-09-30 16:51] LABS: ALT 19 U/L (7-52); AST 29 U/L (13-39); Albumin 4.1 g/dL (3.2-5.2); Alkaline Phosphatase 61 U/L (34-104); Anion Gap 9 mmol/L (2-11); Blood Urea Nitrogen 20 mg/dL (6-24); C Reactive Protein < 1.00 mg/L (< 5.00); CO2 Carbon Dioxide 23 mmol/L (22-32); Calcium 9.4 mg/dL (8.6-10.3); Chloride 103 mmol/L (101-111); EGFR African American 125.6 (>60); EGFR Non-African American 97.6 (>60); Glucose 91 mg/dL (70-100); Sodium 135 mmol/L (133-145); Total Protein 7.1 g/dL (6.4-8.9)
[2016-09-30 16:52] LABS: Troponin I 0.01 ng/mL (<0.04)
--- NOTE | 2016-09-30 17:05 | RAD ---
HISTORY: Shortness of breath COMPARISONS: June 20, 2016 VIEWS: 2: Frontal dual-energy and lateral views of the chest. FINDINGS: CARDIOMEDIASTINAL SILHOUETTE: The cardiomediastinal silhouette is normal. SUNIL: The sunil are normal. PLEURA: The costophrenic angles are sharp. No pleural abnormalities are noted. LUNG PARENCHYMA: The lungs are clear. ABDOMEN: The upper abdomen is clear. There is no subphrenic gas. BONES AND SOFT TISSUES: The patient is status post median sternotomy OTHER: None. IMPRESSION: NO ACTIVE CARDIOPULMONARY DISEASE.
[2016-09-30 17:07] LABS: Urine Bacteria Absent (Absent); Urine Bilirubin Negative (Negative); Urine Glucose Negative (Negative); Urine Nitrite Negative (Negative)
--- NOTE | 2016-09-30 18:51 | ED ---
Angelito Donaldson Billy, scribed for Maksim Stovall MD on 09/30/16 at 1615 . Shortness of Breath - HPI Summary HPI Summary: Patient is a 65 year-old male coming to [facility] for evaluation of shortness of breath for several weeks. He states that he saw his PCP for these symptoms previously and was given Symbicort, which helps, but the symptoms are only alleviated temporarily. He also states that he is being treated for oral thrush. Denies chest pain, palpitations, fevers, chills, or cough. He has some left calf pain intermittently. PMHx is significant for CVA, DVT, PE, DC. - History of Current Complaint Chief Complaint: EDShortnessOfBreath Time Seen by Provider: 09/30/16 16:05 Hx Obtained From: Patient Onset/Duration: Gradual Onset, Lasting Weeks Timing: Intermittent Episodes Lasting: Current Severity: Moderate Dyspnea At: Rest Alleviating Factors: Bronchodilators - Allergy/Home Medications Allergies/Adverse Reactions: Allergies Allergy/AdvReac Type Severity Reaction Status Date / Time Prednisone Allergy See Comment Verified 09/30/16 15:39 PMH/Surg Hx/FS Hx/Imm Hx Endocrine/Hematology History: Reports: Hx Anticoagulant Therapy - Coumadin Denies: Hx Diabetes Cardiovascular History: Reports: Hx Angina, Hx Angioplasty, Hx Coronary Artery Disease, Hx Hypercholesterolemia, Hx Hypertension, Hx Myocardial Infarction, Other Cardiovascular Problems/Disorders - CAD Denies: Hx Pacemaker/ICD Respiratory History: Denies: Hx Asthma, Hx Chronic Obstructive Pulmonary Disease (COPD) History: Denies: Hx Dialysis Musculoskeletal History: Reports: Hx Back Problems Denies: Other Musculoskeletal History - R SHOULDER PAIN FROM PREVIOUS INJURY Sensory History: Reports: Hx Deafness - [place] Denies: Hx Hearing Aid Neurological History: Reports: Hx CVA Denies: Hx Dementia, Hx Seizures Psychiatric History: Denies: Hx Panic Disorder - Surgical History Surgery Procedure, Year, and Place: CABG, cardiac stents x3 Infectious Disease History: No Infectious Disease History: Denies: Traveled Outside the [place] in Last 30 Days Comment Only: Hx of Known/Suspected MRSA - negative 2014 - Family History Known Family History: Positive: Cardiac Disease - Social History Alcohol Use: Daily Alcohol Amount: 1 drink with dinner Substance Use Type: Reports: None Hx Tobacco Use: Yes Smoking Status (MU): Former Smoker Review of Systems Negative: Fever, Chills Negative: Palpitations, Chest Pain Positive: Shortness Of Breath. Negative: Cough All Other Systems Reviewed And Are Negative: Yes Physical Exam - Summary Physical Exam Summary: VITAL SIGNS: Reviewed. GENERAL: Patient is a well-developed and nourished male who is lying comfortable in the stretcher. Patient is not in any acute respiratory distress. HEAD AND FACE: No signs of trauma. No ecchymosis, hematomas or skull depressions. No sinus tenderness. EYES: PERRLA, EOMI x 2, No injected conjunctiva, no nystagmus. EARS: Hearing grossly intact. Ear canals and tympanic membranes are within normal limits. MOUTH: Oropharynx within normal limits. NECK: Supple, trachea is midline, no adenopathy, no JVD, no carotid bruit, no c- spine tenderness, neck with full ROM. CHEST: Symmetric, no tenderness at palpation LUNGS: Clear to auscultation bilaterally. No wheezing or crackles. CVS: Regular rate and rhythm, S1 and S2 present, no murmurs or gallops appreciated. ABDOMEN: Soft, non-tender. No signs of distention. No rebound no guarding, and no masses palpated. Bowel sounds are normal. EXTREMITIES: FROM in all major joints, no edema, no cyanosis or clubbing. NEURO: Alert and oriented x 3. No acute neurological deficits. Speech is normal and follows commands. SKIN: Dry and warm Triage Information Reviewed: Yes Vital Signs On Initial Exam: Initial Vitals Temp Pulse Resp BP Pulse Ox 97.8 F 75 18 119/78 100 09/30/16 15:36 09/30/16 15:36 09/30/16 15:36 09/30/16 15:36 09/30/16 15:36 Vital Signs Reviewed: Yes Diagnostics - Vital Signs Vital Signs Temp Pulse Resp BP Pulse Ox 09/30/16 15:36 97.8 F 75 18 119/78 100 - Laboratory Lab Results: Lab Results 09/30/16 09/30/16 09/30/16 Range/Units 16:28 16:28 16:28 WBC 7.6 (3.5-10.8) 10^3/ul RBC 4.72 (4.0-5.4) 10^6/ul Hgb 14.2 (14.0-18.0) g/dl Hct 42 (42-52) % MCV 90 (80-94) fL MCH 30 (27-31) pg MCHC 34 (31-36) g/dl RDW 14 (10.5-15) % Plt Count 204 (150-450) 10^3/ul MPV 8 (7.4-10.4) um3 Neut % (Auto) 67.6 (38-83) % Lymph % (Auto) 21.1 L (25-47) % [place] % (Auto) 9.1 H (1-9) % Eos % (Auto) 1.7 (0-6) % Baso % (Auto) 0.5 (0-2) % Absolute Neuts (auto) 5.1 (1.5-7.7) 10^3/ul Absolute Lymphs (auto) 1.6 (1.0-4.8) 10^3/ul Absolute Monos (auto) 0.7 (0-0.8) 10^3/ul Absolute Eos (auto) 0.1 (0-0.6) 10^3/ul Absolute Basos (auto) 0 (0-0.2) 10^3/ul Absolute Nucleated RBC 0 10^3/ul Nucleated RBC % 0 INR (Anticoag Therapy) (0.89-1.11) APTT (26.0-36.3) seconds Sodium 135 (133-145) mmol/L Potassium 4.0 (3.5-5.0) mmol/L Chloride 103 (101-111) mmol/L Carbon Dioxide 23 (22-32) mmol/L Anion Gap 9 (2-11) mmol/L BUN 20 (6-24) mg/dL Creatinine 0.80 (0.67-1.17) mg/dL Est GFR ( Amer) 125.6 (>60) Est GFR (Non-Af Amer) 97.6 (>60) BUN/Creatinine Ratio 25.0 H (8-20) Glucose 91 (70-100) mg/dL Lactic Acid 1.3 (0.5-2.0) mmol/L Calcium 9.4 (8.6-10.3) mg/dL Total Bilirubin 0.60 (0.2-1.0) mg/dL AST 29 (13-39) U/L ALT 19 (7-52) U/L Alkaline Phosphatase 61 (34-104) U/L CK-MB (CK-2) 2.5 (0.6-6.3) ng/mL Troponin I 0.01 (<0.04) ng/mL C-Reactive Protein < 1.00 (< 5.00) mg/L B-Natriuretic Peptide ( - 100) pg/mL Total Protein 7.1 (6.4-8.9) g/dL Albumin 4.1 (3.2-5.2) g/dL Globulin 3.0 (2-4) g/dL Albumin/Globulin Ratio 1.4 (1-3) Urine Color Urine Appearance Urine pH (5-9) Ur Specific [place] (1.010-1.030) Urine Protein (Negative) Urine Ketones (Negative) Urine Blood (Negative) Urine Nitrate (Negative) Urine Bilirubin (Negative) Urine Urobilinogen (Negative) Ur Leukocyte Esterase (Negative) Urine WBC (Auto) (Absent) Urine RBC (Auto) (Absent) Urine Bacteria (Absent) Urine Glucose (Negative) 09/30/16 09/30/16 09/30/16 Range/Units 16:28 16:28 16:40 WBC (3.5-10.8) 10^3/ul RBC (4.0-5.4) 10^6/ul Hgb (14.0-18.0) g/dl Hct (42-52) % MCV (80-94) fL MCH (27-31) pg MCHC (31-36) g/dl RDW (10.5-15) % Plt Count (150-450) 10^3/ul MPV (7.4-10.4) um3 Neut % (Auto) (38-83) % Lymph % (Auto) (25-47) % [place] % (Auto) (1-9) % Eos % (Auto) (0-6) % Baso % (Auto) (0-2) % Absolute Neuts (auto) (1.5-7.7) 10^3/ul Absolute Lymphs (auto) (1.0-4.8) 10^3/ul Absolute Monos (auto) (0-0.8) 10^3/ul Absolute Eos (auto) (0-0.6) 10^3/ul Absolute Basos (auto) (0-0.2) 10^3/ul Absolute Nucleated RBC 10^3/ul Nucleated RBC % INR (Anticoag Therapy) 1.78 H (0.89-1.11) APTT 36.3 (26.0-36.3) seconds Sodium (133-145) mmol/L Potassium (3.5-5.0) mmol/L Chloride (101-111) mmol/L Carbon Dioxide (22-32) mmol/L Anion Gap (2-11) mmol/L BUN (6-24) mg/dL Creatinine (0.67-1.17) mg/dL Est GFR ( Amer) (>60) Est GFR (Non-Af Amer) (>60) BUN/Creatinine Ratio (8-20) Glucose (70-100) mg/dL Lactic Acid (0.5-2.0) mmol/L Calcium (8.6-10.3) mg/dL Total Bilirubin (0.2-1.0) mg/dL AST (13-39) U/L ALT (7-52) U/L Alkaline Phosphatase (34-104) U/L CK-MB (CK-2) (0.6-6.3) ng/mL Troponin I (<0.04) ng/mL C-Reactive Protein (< 5.00) mg/L B-Natriuretic Peptide 30 ( - 100) pg/mL Total Protein (6.4-8.9) g/dL Albumin (3.2-5.2) g/dL Globulin (2-4) g/dL Albumin/Globulin Ratio (1-3) Urine Color Yellow Urine Appearance Clear Urine pH 5.0 (5-9) Ur Specific [place] 1.023 (1.010-1.030) Urine Protein Negative (Negative) Urine Ketones Trace H (Negative) Urine Blood Negative (Negative) Urine Nitrate Negative (Negative) Urine Bilirubin Negative (Negative) Urine Urobilinogen Negative (Negative) Ur Leukocyte Esterase 1+ H (Negative) Urine WBC (Auto) 2+(11-20/hpf) H (Absent) Urine RBC (Auto) Absent (Absent) Urine Bacteria Absent (Absent) Urine Glucose Negative (Negative) Result Diagrams: 09/30/16 16:28 09/30/16 16:28 Lab Statement: Any lab studies that have been ordered have been reviewed, and results considered in the medical decision making process. - Radiology CXR Xray Interpretation: No Acute Changes Radiology Interpretation Completed By: Radiologist - EKG 1545 EKG Interpretation: NSR 72 bpm, no STEMI, TWI in V2 V3 V4, Q-waves in III and V1 EKG Comparison: No Significant Change - Compared to 06/21/16 Re-Evaluation - Re-Evaluation First Eval Re-Evaluation Time: 17:37 Change: Improved Comment: No shortness of breath. 100% O2 on room air. HR is 67 bpm at this time. Lungs CTA bilaterally. Course/Dx - Course Assessment/Plan: Patient is a 65 year-old male coming to [facility] for evaluation of shortness of breath for several weeks. He states that he saw his PCP for these symptoms previously and was given Symbicort, which helps, but the symptoms are only alleviated temporarily. He also states that he is being treated for oral thrush. Denies chest pain, palpitations, fevers, chills, or cough. He has some left calf pain intermittently. PMHx is significant for CVA, DVT, PE, DC. Test results WNL except for INR of 1.78. UA is negative for UTI. CXR shows no acute pathology. EKG shows NSR with no STEMI. In the ED course, the vital signs are normal. The patients heart rate is 75 bpm. The O2 sat is 100% on room air. The patient requested a CTA chest, however we know that he already has a pulmonary embolus. I have a very low suspicion for enlargement of the pulmonary embolus since he is neither tachycardic nor hypoxic. The lungs are CTA bilaterally. He reports that in the last 2 years, he has already had 5 CTAs. So at this point, I do not believe he would benefit for another CTA. On re-examination, the patients lungs are clear without wheezing, O2 saturation is 100%, and his HR is 67 bpm. He was diagnosed with thrush for which he is already taking medications. At this point, he will be discharged home to follow up with PCP. Patient reports that he wants to be admitted since he has no ride back home. I explained that at this time I am unable to find a reazon for admittion. He understands and agrees. - Diagnoses Differential Diagnosis/HQI/PQRI: Positive: Asthma, Bronchitis, CHF, Pneumonia Provider Diagnoses: Shortness of breath, Thrush Discharge - Discharge Plan Condition: Stable Disposition: HOME Patient Education Materials: Dyspnea (ED) Referrals: Gabo Ledbetter MD [Primary Care Provider] - The documentation as recorded by the Angelito solomon Billy accurately reflects the service I personally performed and the decisions made by me, Maksim Stovall MD.
[2016-09-30 19:15] VITALS: BP 115/71
== END 2016-09-30 19:16 | disposition home or self-care (01) ==
LOC: ED 15:34
DX: R06.02 Shortness of breath (principal); B37.9 Candidiasis, unspecified; I25.119 Atherosclerotic heart disease of native coronary artery with unspecified angina pectoris; I10 Essential (primary) hypertension; E78.00 Pure hypercholesterolemia, unspecified; J44.9 Chronic obstructive pulmonary disease, unspecified; I25.2 Old myocardial infarction; Z98.61 Coronary angioplasty status; I45.81 Long QT syndrome; R94.31 Abnormal electrocardiogram [ECG] [EKG]; Z79.01 Long term (current) use of anticoagulants; Z88.8 Allergy status to other drugs, medicaments and biological substances; Z87.891 Personal history of nicotine dependence; Z79.899 Other long term (current) drug therapy
CPT/HCPCS: 36415; 71020; 80053; 81003; 81015; 82553; 83605; 83880; 84484; 85025; 85610; 85730; 86140; 87040; 87086; 93005; 99282

== ENCOUNTER 2016-10-02 12:46 | Observation (INO) | payer MEDICARE ==
--- NOTE | 2016-10-02 14:20 | RAD ---
INDICATION: Short of breath COMPARISON: September 30, 2016 TECHNIQUE: An AP portable view obtained at 1415 hours is submitted. FINDINGS: Bones/Soft Tissues: There are no acute bony findings. There is sternotomy Cardiomediastinal: The cardiomediastinal silhouette is normal. Lungs: There are no infiltrates. Pleura: There are no pleural effusions. Other: None IMPRESSION: NO ACTIVE DISEASE.
[2016-10-02 15:03] LABS: Hematocrit 43 % (42-52); Hemoglobin 14.3 g/dl (14.0-18.0); Mean Corpuscular HGB Conc 33 g/dl (31-36); Mean Corpuscular Hemoglobin 30 pg (27-31); Mean Corpuscular Volume 90 fL (80-94); Mean Platelet Volume 8 um3 (7.4-10.4); Red Blood Count 4.79 10^6/ul (4.0-5.4); Red Cell Distribution Width 15 % (10.5-15); White Blood Count 7.6 10^3/ul (3.5-10.8)
[2016-10-02 15:17] LABS: Albumin 4.2 g/dL (3.2-5.2); Calcium 9.3 mg/dL (8.6-10.3); EGFR African American 133.2 (>60); EGFR Non-African American 103.6 (>60); Potassium 3.8 mmol/L (3.5-5.0); Total Bilirubin 0.7 mg/dL (0.2-1.0); Total Protein 7.2 g/dL (6.4-8.9)
[2016-10-02 15:19] LABS: Troponin I 0.01 ng/mL (<0.04)
--- NOTE | 2016-10-02 15:41 | ED ---
I, Oh,Jackie, scribed for Sienna Mckeon MD on 10/02/16 at 1336 . HPI Chest Pain - HPI Summary HPI Summary: This 65 y/o male presents to ED for persistent intermittent chest heaviness since 3-4 weeks ago. Positive dyspnea. Last ED visit was 2 days ago for similar complaints and other respiratory complaints involving sore throat, after which pt was discharged and rx with Symbicort by PCP. He decided to visit ED today again when he wasn't able to control his breathing with inhaler. He also reporrolling throat discomfort with chlorhexadine. PMHx includes CAD, MN s/p triple bypass and stent placement, and CVA in June 2016. Pt lives alone. Hets sore throat, recurrent thrush, and nonproductive cough that have been chronic since his CVA and residual difficulty with swallowing. He has been cont has remote hx of tobacco use. FHx is positive for MN to brother. Primary care involves Dr. Nam in [place]. - History of Current Complaint Chief Complaint: EDShortnessOfBreath Time Seen by Provider: 10/02/16 13:15 Hx Obtained From: Patient Onset/Duration: Atraumatic Timing: Constant Pain Intensity: 3 Pain Scale Used: 0-10 Numeric Chest Pain Location: Diffuse Chest Pain Radiates: No Character: Heaviness Aggravating Factor(s): Nothing Alleviating Factor(s): Nothing Associated Signs and Symptoms: Positive: Chest Pain, Shortness of Breath - Additional Pertinent History Primary Care Physician: [id number] - Allergy/Home Medications Allergies/Adverse Reactions: Allergies Allergy/AdvReac Type Severity Reaction Status Date / Time Prednisone Allergy See Comment Verified 09/30/16 15:39 PMH/Surg Hx/FS Hx/Imm Hx Endocrine/Hematology History: Reports: Hx Anticoagulant Therapy - Coumadin Denies: Hx Diabetes Cardiovascular History: Reports: Hx Angina, Hx Angioplasty, Hx Coronary Artery Disease, Hx Hypercholesterolemia, Hx Hypertension, Hx Myocardial Infarction, Other Cardiovascular Problems/Disorders - CAD Denies: Hx Pacemaker/ICD Respiratory History: Denies: Hx Asthma, Hx Chronic Obstructive Pulmonary Disease (COPD) History: Denies: Hx Dialysis Musculoskeletal History: Reports: Hx Back Problems Denies: Other Musculoskeletal History - R SHOULDER PAIN FROM PREVIOUS INJURY Sensory History: Reports: Hx Deafness - [place] Denies: Hx Hearing Aid Neurological History: Reports: Hx CVA Denies: Hx Dementia, Hx Seizures Psychiatric History: Denies: Hx Panic Disorder - Surgical History Surgery Procedure, Year, and Place: CABG, cardiac stents x3 Infectious Disease History: No Infectious Disease History: Denies: Traveled Outside the [place] in Last 30 Days Comment Only: Hx of Known/Suspected MRSA - negative 2014 - Family History Known Family History: Positive: Cardiac Disease - Positive for brother who had MN before age of 55. - Social History Lives: Alone Alcohol Use: Occasionally Alcohol Amount: 1 drink with dinner Hx Substance Use: No Substance Use Type: Reports: None Hx Tobacco Use: Yes Smoking Status (MU): Former Smoker Review of Systems Negative: Fever Positive: Sore Throat Positive: Chest Pain - chest heaviness Positive: Shortness Of Breath, Cough - nonproductive All Other Systems Reviewed And Are Negative: Yes Physical Exam Triage Information Reviewed: Yes Vital Signs On Initial Exam: Initial Vitals Temp Pulse Resp BP Pulse Ox 97.5 F 62 16 131/73 100 10/02/16 12:54 10/02/16 12:54 10/02/16 12:54 10/02/16 12:54 10/02/16 12:54 Vital Signs Reviewed: Yes Appearance: Positive: Well-Appearing, No Pain Distress Skin: Positive: Warm, Skin Color Reflects Adequate Perfusion Head/Face: Positive: Normal Head/Face Inspection Eyes: Positive: EOMI, JACINDA ENT: Positive: Pharynx normal Neck: Positive: Supple, Nontender Respiratory/Lung Sounds: Positive: Clear to Auscultation, Breath Sounds Present Cardiovascular: Positive: RRR, Pulses are Symmetrical in both Upper and Lower Extremities Abdomen Description: Positive: Nontender, Soft Musculoskeletal: Positive: Strength/ROM Intact Neurological: Positive: Sensory/Motor Intact, Alert, Oriented to Person Place, Time Psychiatric: Positive: Affect/Mood Appropriate AVPU Assessment: Alert - Brain Coma Scale Coma Scale Total: 15 Diagnostics - Vital Signs Vital Signs Temp Pulse Resp BP Pulse Ox 10/02/16 13:02 70 16 93 10/02/16 13:01 122/78 10/02/16 12:58 97.1 F 61 16 122/78 100 10/02/16 12:54 97.5 F 62 16 131/73 100 - Laboratory Lab Results: Lab Results 10/02/16 10/02/16 10/02/16 Range/Units 14:45 14:45 14:45 WBC 7.6 (3.5-10.8) 10^3/ul RBC 4.79 (4.0-5.4) 10^6/ul Hgb 14.3 (14.0-18.0) g/dl Hct 43 (42-52) % MCV 90 (80-94) fL MCH 30 (27-31) pg MCHC 33 (31-36) g/dl RDW 15 (10.5-15) % Plt Count 212 (150-450) 10^3/ul MPV 8 (7.4-10.4) um3 Neut % (Auto) 74.1 (38-83) % Lymph % (Auto) 17.4 L (25-47) % [place] % (Auto) 7.2 (1-9) % Eos % (Auto) 0.7 (0-6) % Baso % (Auto) 0.6 (0-2) % Absolute Neuts (auto) 5.6 (1.5-7.7) 10^3/ul Absolute Lymphs (auto) 1.3 (1.0-4.8) 10^3/ul Absolute Monos (auto) 0.5 (0-0.8) 10^3/ul Absolute Eos (auto) 0.1 (0-0.6) 10^3/ul Absolute Basos (auto) 0 (0-0.2) 10^3/ul Absolute Nucleated RBC 0.01 10^3/ul Nucleated RBC % 0.1 INR (Anticoag Therapy) (0.89-1.11) D-Dimer, Quantitative (Less Than 230) ng/mL Sodium 136 (133-145) mmol/L Potassium 3.8 (3.5-5.0) mmol/L Chloride 104 (101-111) mmol/L Carbon Dioxide 24 (22-32) mmol/L Anion Gap 8 (2-11) mmol/L BUN 19 (6-24) mg/dL Creatinine 0.76 (0.67-1.17) mg/dL Est GFR ( Amer) 133.2 (>60) Est GFR (Non-Af Amer) 103.6 (>60) BUN/Creatinine Ratio 25.0 H (8-20) Glucose 88 (70-100) mg/dL Lactic Acid 1.3 (0.5-2.0) mmol/L Calcium 9.3 (8.6-10.3) mg/dL Total Bilirubin 0.70 (0.2-1.0) mg/dL AST 31 (13-39) U/L ALT 19 (7-52) U/L Alkaline Phosphatase 69 (34-104) U/L Troponin I 0.01 (<0.04) ng/mL Total Protein 7.2 (6.4-8.9) g/dL Albumin 4.2 (3.2-5.2) g/dL Globulin 3.0 (2-4) g/dL Albumin/Globulin Ratio 1.4 (1-3) // Range/Units 14:45 WBC (3.5-10.8) 10^3/ul RBC (4.0-5.4) 10^6/ul Hgb (14.0-18.0) g/dl Hct (42-52) % MCV (80-94) fL MCH (27-31) pg MCHC (31-36) g/dl RDW (10.5-15) % Plt Count (150-450) 10^3/ul MPV (7.4-10.4) um3 Neut % (Auto) (38-83) % Lymph % (Auto) (25-47) % [place] % (Auto) (1-9) % Eos % (Auto) (0-6) % Baso % (Auto) (0-2) % Absolute Neuts (auto) (1.5-7.7) 10^3/ul Absolute Lymphs (auto) (1.0-4.8) 10^3/ul Absolute Monos (auto) (0-0.8) 10^3/ul Absolute Eos (auto) (0-0.6) 10^3/ul Absolute Basos (auto) (0-0.2) 10^3/ul Absolute Nucleated RBC 10^3/ul Nucleated RBC % INR (Anticoag Therapy) 1.66 H (0.89-1.11) D-Dimer, Quantitative < 200 (Less Than 230) ng/mL Sodium (133-145) mmol/L Potassium (3.5-5.0) mmol/L Chloride (101-111) mmol/L Carbon Dioxide (22-32) mmol/L Anion Gap (2-11) mmol/L BUN (6-24) mg/dL Creatinine (0.67-1.17) mg/dL Est GFR ( Amer) (>60) Est GFR (Non-Af Amer) (>60) BUN/Creatinine Ratio (8-20) Glucose (70-100) mg/dL Lactic Acid (0.5-2.0) mmol/L Calcium (8.6-10.3) mg/dL Total Bilirubin (0.2-1.0) mg/dL AST (13-39) U/L ALT (7-52) U/L Alkaline Phosphatase (34-104) U/L Troponin I (<0.04) ng/mL Total Protein (6.4-8.9) g/dL Albumin (3.2-5.2) g/dL Globulin (2-4) g/dL Albumin/Globulin Ratio (1-3) Result Diagrams: 10/02/16 14:45 10/02/16 14:45 Lab Statement: Any lab studies that have been ordered have been reviewed, and results considered in the medical decision making process. - Radiology CXR Xray Interpretation: No Acute Changes Radiology Interpretation Completed By: Radiologist - EKG 1342 Cardiac Rate: NL EKG Rhythm: Sinus Rhythm - 75 bpm Chest Pain Course/Dx - Course Course Of Treatment: 65 yo male with throat discomfort and difficulty swallowing along that started upon admission in July when he had an mca stroke , he says the symptoms abated with a medicine given to him for thrush on the floors. He says no meds were given when he was in rehab and upon returning home september 04 the pain returned. He is very convinced he has recurrent thrush but clinically there doesn't appear to be an oropharyngeal issue. In the last few days he is experiencing the same symptoms along with upper chest discomfort and sob araeblla when ambulating. Of note pt was found in July to have a left ventricular thrombus with a nomral ef, but a repeated echo on September 10 shows no thrombus but a decreased EF to 35-40%. It is unclear the relation of the difficulty swallowing to the sob, it may be an anginal equivalent or it could be related to a swallowing issue from his cva or he may have an esophageal issue going on. The case has been discussed with Dr. Reid for admission - Diagnoses Provider Diagnoses: Dyspnea - Provider Notifications Discussed Care Of Patient With: Dr. Reid (Hospitalist) at 1520 PM Instructed by Provider To: Admit As Inpatient Discharge - Discharge Plan Condition: Stable Disposition: ADMITTED TO [facility] Referrals: Gabo Ledbetter MD [Primary Care Provider] - The documentation as recorded by the Scar solomon Soohyun accurately reflects the service I personally performed and the decisions made by me, Sienna Mckeon MD.
[2016-10-02] MEDS ORDERED: Acetaminophen TAB* 325 MG PO PRN (16:07)
[2016-10-02] MEDS ORDERED: Ondansetron INJ* 2 MG/ML VIAL IV PRN (16:07)
[2016-10-02] MEDS: Atorvastatin* 40 MG TAB PO SCH (16:56)
[2016-10-02] MEDS ORDERED: Warfarin TAB(*) 4 MG PO SCH (17:00)
[2016-10-02] MEDS ORDERED: Warfarin TAB(*) 5 MG PO SCH (17:00)
[2016-10-02 17:23] LABS: HDL Cholesterol 61.8 mg/dL
[2016-10-02] MEDS: Magic Mouth Was-BEN/MAAL/LIDO SWISH SWAL SCH ×2 (19:23→20:30)
[2016-10-02] MEDS ORDERED: Metoprolol Tartrate TAB* 25 MG PO SCH (21:00)
[2016-10-02] MEDS: PTO:Budesonide/Formote 80/4.5(NF) MDI INH SCH (21:17)
--- NOTE | 2016-10-02 21:37 | HP ---
HISTORY AND PHYSICAL: DATE OF ADMISSION: 10/02/16 PRIMARY CARE PROVIDER: Dr. Ledbetter from [facility]. ATTENDING PHYSICIAN WHILE IN THE HOSPITAL: Dr. Alejandrina Reid* (report being dictated by Gayathri Pollard NP). CHIEF COMPLAINT: 1. Throat pain. 2. Chest tightness. 3. Dyspnea on exertion. HISTORY OF PRESENT ILLNESS: Mr. Massey is a 65-year-old male patient who recently was diagnosed with a CVA. He had a right middle cerebral artery thrombus and found to have an LV thrombus, history of hypertension, hyperlipidemia with CAD, and CT. He comes in today. He says he woke up this morning. He just states that his throat felt sore, scratchy, and tightness in his chest. He has been having dyspnea on exertion. He says it has been getting worse over the last couple weeks. The couple days has been progressively worse. He went and saw his primary. He started him on nystatin. He thought maybe he had thrush, but he feels like this has not done anything for him. He does state the Symbicort does help him and makes him feel better. He denies any fevers or chills. He has not been having any cough. He has noticed that he has been having more dyspnea on exertion. There has been no fevers or chills or any abdominal discomfort or any abdominal pain. He says the discomfort does not get worse with exertion, but he does state that he certainly is more short of breath with exertion and he says that his throat just feels scratchy. He came in to the ER today. He was evaluated. There was concern because of the dyspnea on exertion and chest pain that this may be an anginal equivalent and we were asked to evaluate for admission. PAST MEDICAL HISTORY: Significant for: 1. Hypertension. 2. Hyperlipidemia. 3. CAD. 4. CT. 5. CVA. 6. Left LV thrombus. PAST SURGICAL HISTORY: 1. He has had a CABG. 2. He has had a cardiac catheterization x3. HOME MEDICATIONS: According to his own recall include: 1. Symbicort 2 puffs inhaled b.i.d. 2. Lipitor 40 mg daily. 3. Aspirin 81 mg daily. 4. Warfarin 4 mg daily. 5. Prilosec 20 mg daily. 6. Metoprolol XL 12.5 mg daily. 7. Imdur 30 mg daily. 8. Enalapril 2.5 mg daily. ALLERGIES TO MEDICATIONS: Include PREDNISONE. FAMILY HISTORY: Both his parents had coronary artery disease. SOCIAL HISTORY: He is a former smoker. He does not drink alcohol. He is . Surrogate decision maker is his mother. REVIEW OF SYSTEMS: There is no documented fever. He denied having any significant weight change. There was no double vision. There was no ear discharge. He denies having any rhinorrhea. No sore throat. No thyroid enlargement. Denied having any chest pain. There is no orthopnea. There is no nocturnal dyspnea. There was no abdominal pain. No nausea. No vomiting. No dysuria. There was no frequency. There was no loss of consciousness. No pruritus and no skin ulcerations. Review of 14 systems completed, all others negative. PHYSICAL EXAMINATION GENERAL: At this time, Mr. Massey is a 65-year-old male patient. He appears well nourished, well developed. He is sitting in the ER stretcher. He does not appear to be in any acute distress. VITAL SIGNS: Blood pressure 121/80 with a pulse of 69, respirations 18, O2 sat 99%, and temperature 97.1. HEENT: Head is atraumatic and normocephalic. Eyes: EOMs are intact. Sclerae are anicteric and not pale. Throat: Oral mucosa appeared to be moist. There is no oropharyngeal erythema. The back of the pharynx appeared to be clear. NECK: Supple. No adenopathy. LUNGS: Clear to auscultation bilaterally. There is no stridor. No wheezes, rales, or rhonchi. HEART: Sounds S1, S2. Regular rate and rhythm. No murmurs, rubs, or gallops. ABDOMEN: Soft, flat, and nontender. Bowel sounds present. EXTREMITIES: Pulses were 2+ throughout. He is able to move all 4 extremities with 5/5 strength. He had no peripheral edema noted. NEUROLOGIC: He is awake, he is alert, and he is oriented x3. His tongue is midline. Dance Hall Hostess are equal. No gross focal deficits. SKIN: Intact. LABORATORY DATA/DIAGNOSTIC STUDIES: Revealed a WBC of 7.6, RBC of 4.79, hemoglobin 14.3, hematocrit of 43, platelet count 312. INR 1.66. D-dimer less than 200. Sodium 136, potassium 2.8, chloride 104, bicarb 24, BUN 19, his creatinine was 0.76, glucose 88, lactic 1.3, calcium 9.3. Total bilirubin 0.7, ALT 19, alk phos 69, troponin 0.01. Albumin was 4.2. He did have a chest x- ray obtained today. On my review, I did not appreciate any acute infiltrates. Radiology read it as no active disease. He had an EKG obtained today as well, which showed a normal sinus rhythm. He did have inversions in V1, V2, V3, V4, V6 and I reviewed this to the previous EKG, EKGs appear to be similar. He did have an echo done on the which actually showed his EF dropped a little bit from 30% to 35% to 40% and he did have an area of focal wall motion abnormality present along the anterior apical septum and posterior apex scarring. No thrombus is seen, but he had an estimated EF of 35% to 40%. Old medical records were reviewed. ASSESSMENT AND PLAN: Mr. Massey is a 65-year-old male patient coming in to the ER today with complaints of throat pain with chest tightness and pressure. Because of this, there was concern given his medical history and we were asked to evaluate for admission. He will be admitted under observation status for: 1. Chest discomfort. The pain is really in his upper chest: He described throat tightness and scratchiness. His biggest complaint is really his throat. However, though he has been having some more dyspnea on exertion. His echo did show a lower EF. I think at this point we will go ahead and get a stress test to make sure he does not have progression of the disease. We will check his troponin, we will place him on telemetry, and for the throat pain, I am actually going to give him some Magic Mouthwash. We may need to consider getting him set up with ENT for possible scope with ENT to see if there is anything down further or possibly CT imaging of the neck, but at this point, we will hold off until further cardiac workup. 2. Hypertension: Continue meds as prescribed. 3. Hyperlipidemia: Continue statin therapy. 4. Coronary artery disease: He is on aspirin, statin, and beta kelsi. Continue. 5. History of cerebrovascular accident with thrombus: INR is 1.66. Thrombus is not there currently. So, I do not think we need to bridge him, but I will go ahead and increase his Coumadin to 5 mg daily. 6. DVT prophylaxis: We will go ahead and continue the warfarin. 7. Fluids, electrolytes, and nutrition: Heart healthy diet and n.p.o. after midnight. 8. Code status: Full code. TIME SPENT: Time spent on the admission was 60 minutes, greater than half the time was spent [id number] with the patient obtaining my history and physical, other half the time spent going over the plan of care with the patient and implementing plan of care. I did discuss the plan of care with my attending, Dr. Reid; she is in agreement. GAYATHRI POLLARD NP CC: Dr. Ledbetter, [facility]* [id number]/CPS #: [id number] MTDD
[2016-10-03] MEDS: Omeprazole CAP* 20 MG PO SCH (06:16)
[2016-10-03] MEDS: PTO:Budesonide/Formote 80/4.5(NF) MDI INH SCH ×2 (08:40→20:31)
[2016-10-03 08:43] LABS: Hematocrit 43 % (42-52); Hemoglobin 14.5 g/dl (14.0-18.0); Mean Corpuscular HGB Conc 34 g/dl (31-36); Mean Corpuscular Hemoglobin 30 pg (27-31); Mean Corpuscular Volume 90 fL (80-94); Mean Platelet Volume 8 um3 (7.4-10.4); Red Blood Count 4.82 10^6/ul (4.0-5.4); Red Cell Distribution Width 14 % (10.5-15)
[2016-10-03] MEDS ORDERED: Regadenoson* 0.4 MG/5 ML SYRINGE ONE (08:45)
[2016-10-03 08:55] LABS: BUN/Creatinine Ratio 23.5 (8-20); Calcium 8.8 mg/dL (8.6-10.3); EGFR African American 123.8 (>60); EGFR Non-African American 96.2 (>60); Potassium 3.9 mmol/L (3.5-5.0)
--- NOTE | 2016-10-03 10:06 | PN ---
Subjective Date of Service: 10/03/16 Interval History: Not SOB at rest. He had chest pain with his 2 NV's. No new c/o. Patient states he had severe erythema and SOB with chemical stress test, also that he does pushups and stair climbing frequently without difficulty. Objective Active Medications: Acetaminophen (Tylenol Tab*) 650 mg PO Q4H PRN PRN Reason: FEVER/PAIN Aspirin (Aspirin Low Dose Tab*) 81 mg PO DAILY ON LICENSE OF [facility] Atorvastatin Calcium (Lipitor*) 40 mg PO QPM ON LICENSE OF [facility] Last Admin: 10/02/16 16:56 Dose: 40 mg Budesonide/Formoterol Fumarate (Symbicort 80/4.5 (Nf)) 2 aer INH BID ON LICENSE OF [facility] PRN Reason: Protocol Last Admin: 10/03/16 08:40 Dose: 2 puff Enalapril Maleate (Vasotec Tab*) 2.5 mg PO DAILY ON LICENSE OF [facility] Isosorbide Mononitrate (Imdur Er Tab*) 30 mg PO DAILY ON LICENSE OF [facility] Metoprolol Succinate (Toprol Xl Tab*) 12.5 mg PO DAILY ON LICENSE OF [facility] Multi-Ingredient Mouthwash/Gargle (Magic Mouth Was-Shola/Maal/Lido*) 5 ml SWISH SWAL QID ON LICENSE OF [facility] Last Admin: 10/02/16 20:30 Dose: Not Given Omeprazole (Prilosec Cap*) 20 mg PO DAILY@0600 ON LICENSE OF [facility] Last Admin: 10/03/16 06:16 Dose: 20 mg Ondansetron HCl (Zofran Inj*) 4 mg IV Q6H PRN PRN Reason: NAUSEA Warfarin Sodium (Coumadin Tab(*)) 4 mg PO DAILY@1700 ON LICENSE OF [facility] PRN Reason: Protocol Vital Signs 10/02/16 10/02/16 10/02/16 17:00 17:08 17:41 Temperature 97.5 F 97.9 F Pulse Rate 69 64 62 Respiratory 16 16 Rate Blood Pressure 136/85 136/85 136/75 (mmHg) O2 Sat by Pulse 99 100 Oximetry 10/02/16 10/02/16 10/02/16 19:27 20:00 21:21 Temperature 97.6 F Pulse Rate 65 Respiratory 17 17 Rate Blood Pressure 120/70 (mmHg) O2 Sat by Pulse 100 98 Oximetry 10/03/16 10/03/16 10/03/16 00:25 04:42 06:38 Temperature 97.5 F 97.6 F Pulse Rate 70 59 Respiratory 20 20 20 Rate Blood Pressure 111/65 100/53 (mmHg) O2 Sat by Pulse 100 100 Oximetry 10/03/16 07:05 Temperature 97.8 F Pulse Rate 65 Respiratory 18 Rate Blood Pressure 136/73 (mmHg) O2 Sat by Pulse 100 Oximetry Oxygen Devices in Use Now: None Appearance: Alert, partly up on exam table. Somewhat anxious, otherwise looks comfortable. Eyes: No Scleral Icterus Ears/Nose/Mouth/Throat: Clear Oropharnyx, Mucous Membranes Moist Neck: NL Appearance and Movements; NL JVP, No Thyroid Enlargement, Masses Respiratory: Symmetrical Chest Expansion and Respiratory Effort, Clear to Auscultation, Clear to Percussion Cardiovascular: NL Sounds; No Murmurs; No JVD, RRR, No Edema, - Extremities: No Edema, No Clubbing, Cyanosis, - Skin: No Rash or Ulcers, No Nodules or Sclerosis, - Neurological: Alert and Oriented x 3, - - Some numbness LUE. Good handgrips BL , good foot dorsifelxion BL. Result Diagrams: 10/03/16 08:18 10/03/16 08:18 Additional Lab and Data: Lab Results 10/02/16 10/02/16 10/02/16 Range/Units 14:45 14:45 14:45 WBC 7.6 (3.5-10.8) 10^3/ul RBC 4.79 (4.0-5.4) 10^6/ul Hgb 14.3 (14.0-18.0) g/dl Hct 43 (42-52) % MCV 90 (80-94) fL MCH 30 (27-31) pg MCHC 33 (31-36) g/dl RDW 15 (10.5-15) % Plt Count 212 (150-450) 10^3/ul MPV 8 (7.4-10.4) um3 Neut % (Auto) 74.1 (38-83) % Lymph % (Auto) 17.4 L (25-47) % Towns % (Auto) 7.2 (1-9) % Eos % (Auto) 0.7 (0-6) % Baso % (Auto) 0.6 (0-2) % Absolute Neuts (auto) 5.6 (1.5-7.7) 10^3/ul Absolute Lymphs (auto) 1.3 (1.0-4.8) 10^3/ul Absolute Monos (auto) 0.5 (0-0.8) 10^3/ul Absolute Eos (auto) 0.1 (0-0.6) 10^3/ul Absolute Basos (auto) 0 (0-0.2) 10^3/ul Absolute Nucleated RBC 0.01 10^3/ul Nucleated RBC % 0.1 INR (Anticoag Therapy) (0.89-1.11) D-Dimer, Quantitative (Less Than 230) ng/mL Sodium 136 (133-145) mmol/L Potassium 3.8 (3.5-5.0) mmol/L Chloride 104 (101-111) mmol/L Carbon Dioxide 24 (22-32) mmol/L Anion Gap 8 (2-11) mmol/L BUN 19 (6-24) mg/dL Creatinine 0.76 (0.67-1.17) mg/dL Est GFR ( Amer) 133.2 (>60) Est GFR (Non-Af Amer) 103.6 (>60) BUN/Creatinine Ratio 25.0 H (8-20) Glucose 88 (70-100) mg/dL Lactic Acid 1.3 (0.5-2.0) mmol/L Calcium 9.3 (8.6-10.3) mg/dL Total Bilirubin 0.70 (0.2-1.0) mg/dL AST 31 (13-39) U/L ALT 19 (7-52) U/L Alkaline Phosphatase 69 (34-104) U/L Troponin I 0.01 (<0.04) ng/mL Total Protein 7.2 (6.4-8.9) g/dL Albumin 4.2 (3.2-5.2) g/dL Globulin 3.0 (2-4) g/dL Albumin/Globulin Ratio 1.4 (1-3) 10/02/16 Range/Units 14:45 WBC (3.5-10.8) 10^3/ul RBC (4.0-5.4) 10^6/ul Hgb (14.0-18.0) g/dl Hct (42-52) % MCV (80-94) fL MCH (27-31) pg MCHC (31-36) g/dl RDW (10.5-15) % Plt Count (150-450) 10^3/ul MPV (7.4-10.4) um3 Neut % (Auto) (38-83) % Lymph % (Auto) (25-47) % Towns % (Auto) (1-9) % Eos % (Auto) (0-6) % Baso % (Auto) (0-2) % Absolute Neuts (auto) (1.5-7.7) 10^3/ul Absolute Lymphs (auto) (1.0-4.8) 10^3/ul Absolute Monos (auto) (0-0.8) 10^3/ul Absolute Eos (auto) (0-0.6) 10^3/ul Absolute Basos (auto) (0-0.2) 10^3/ul Absolute Nucleated RBC 10^3/ul Nucleated RBC % INR (Anticoag Therapy) 1.66 H (0.89-1.11) D-Dimer, Quantitative < 200 (Less Than 230) ng/mL Sodium (133-145) mmol/L Potassium (3.5-5.0) mmol/L Chloride (101-111) mmol/L Carbon Dioxide (22-32) mmol/L Anion Gap (2-11) mmol/L BUN (6-24) mg/dL Creatinine (0.67-1.17) mg/dL Est GFR ( Amer) (>60) Est GFR (Non-Af Amer) (>60) BUN/Creatinine Ratio (8-20) Glucose (70-100) mg/dL Lactic Acid (0.5-2.0) mmol/L Calcium (8.6-10.3) mg/dL Total Bilirubin (0.2-1.0) mg/dL AST (13-39) U/L ALT (7-52) U/L Alkaline Phosphatase (34-104) U/L Troponin I (<0.04) ng/mL Total Protein (6.4-8.9) g/dL Albumin (3.2-5.2) g/dL Globulin (2-4) g/dL Albumin/Globulin Ratio (1-3) Assess/Plan/Problems-Billing Assessment: - Patient Problems (1) Dyspnea Current Visit: Yes Status: Acute Code(s): R06.00 - DYSPNEA, UNSPECIFIED SNOMED Code(s): 502001773 Comment: Possible anginal equivalent, but not exertional. Nuclear exercise stress test 10/03. Known CAD s/p CABG and stenting. Diminished LVEF on echo last month. Continue ASA, BB, statin. Stress test showed old scar, no reversible changes. Dr. Aranda to see pt. (2) LV (left ventricular) mural thrombus Current Visit: Yes Status: Acute Code(s): OHU4237 - SNOMED Code(s): 633314419796012 Comment: No thrombus on echo last month. Continue warfarin. (3) HTN (hypertension) Current Visit: No Status: Acute Code(s): I10 - ESSENTIAL (PRIMARY) HYPERTENSION SNOMED Code(s): 08232343 Comment: Continue metoprolol, enalapril, and imdur. (4) Cerebrovascular accident (CVA) due to occlusion of right middle cerebral artery Current Visit: No Status: Acute Code(s): I63.511 - CEREB INFRC D/T UNSP OCCLS OR STENOS OF RIGHT MID CEREB ART SNOMED Code(s): 521213417 Comment: - Continue ASA, statin, warfarin. Mild residual deficit, mainly sensory. (5) Decubitus skin ulcer Current Visit: Yes Status: Acute Code(s): L89.90 - PRESSURE ULCER OF UNSPECIFIED SITE, UNSPECIFIED STAGE SNOMED Code(s): 225477837 Comment: Developed due to prolonged immobility at onset of CVA /2017.
--- NOTE | 2016-10-03 11:39 | RAD ---
Edited for charges. Indication: Dyspnea on exertion, chest pressure. Myocardial perfusion scan was performed utilizing 1 day protocol. 10.8 mCi of technetium 99m tetrofosmin was injected for the rest portion of the study. Treadmill stress was performed and the maximum heart rate achieved was 87% of the maximum predicted value. 25.8 mCi of technetium 99m tetrofosmin was injected for the stress portion of the study. There is homogeneous distribution of the radiotracer throughout the left ventricle. There is a large fixed defect is present involving the anterior wall extending into the anterior septal wall. No evidence of reversible change is noted. The ejection fraction at stress is 52%. Evaluation of wall motion demonstrates hypokinesis of the septum. There may be paradoxical motion of the septal wall. IMPRESSION: Large anteroseptal fixed defect extending to the apex. There is suggestion of perineal motion of the septum with ejection fraction of 52%. ASSESSMENT: High risk Based on imaging criteria from ACC/AHA 2002 Guideline Update for the Management of Patients With Chronic Stable Angina Table 23. Noninvasive Risk Stratification. MTDD
[2016-10-03] MEDS: Isosorbide Mononitrate ER TAB* 30 MG PO SCH (12:03)
[2016-10-03] MEDS: Enalapril TAB* 5 MG PO SCH (12:03)
[2016-10-03] MEDS: Metoprolol Succinate XL TAB* 25 MG PO SCH (12:03)
[2016-10-03] MEDS: Aspirin Low Dose CHEW TAB* 81 MG PO SCH (12:03)
[2016-10-03] MEDS: Magic Mouth Was-BEN/MAAL/LIDO SWISH SWAL SCH ×4 (12:04→19:51)
[2016-10-03] MEDS: Warfarin TAB(*) 4 MG PO SCH (16:05)
[2016-10-03] MEDS: Atorvastatin* 40 MG TAB PO SCH (17:04)
--- NOTE | 2016-10-03 20:58 | CONS ---
PULMONARY CONSULTATION REPORT: DATE OF CONSULT: 10/03/16 CONSULTATION REQUESTED BY: Dr. Westfall. REASON FOR CONSULT: Evaluation of shortness of breath. 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 The patient was recently transferred to rehab after being admitted for acute CVA. The patient comes back for evaluation of shortness of breath on exertion, chest discomfort, and scratchy sensation and throat pain. The patient reports gradually worsening shortness of breath over the past month. The patient reports dyspnea on exertion with minimal exertion. The patient also reports dyspnea even with talking. The patient reports inability to take a deep breath. He was started on Symbicort 2 weeks ago and reports slight improvement in symptoms. He also reports sensation of his throat closing of and not being able to breathe. The patient was started on nystatin recently by primary care physician for possible thrush. The patient took 2 doses, 1 tablet each week, and had worsening shortness of breath and stopped taking it. The patient reports difficulty swallowing. The patient denies choking while eating. The patient reports residual weakness from his CVA on the left side. The patient is a former smoker, quit long time ago. The patient denies GERD symptoms. The patient was started on PPI this morning. He reports scratchy feeling in the back of his throat. The patient reports being unable to catch a deep breath; however, denies acute chest pain. The patient denies cough, fevers, chills, abdominal pain, nausea, vomiting, night sweats, loss of weight or appetite. PAST MEDICAL HISTORY: 1. Hypertension. 2. Hyperlipidemia. 3. CAD. 4. DE. 5. CVA recently. 6. Left LV thrombus. PAST SURGICAL HISTORY: CABG, cardiac catheterization x3. MEDICATIONS: 1. Symbicort. 2. Lipitor. 3. Aspirin. 4. Coumadin. 5. Prilosec. 6. Metoprolol. 7. Imdur. 8. Enalapril. ALLERGIES TO MEDICATIONS: PREDNISONE. FAMILY HISTORY: Coronary artery disease in both parents. SOCIAL HISTORY: Former smoker, quit long time ago. No alcohol or drug abuse. REVIEW OF SYSTEMS: All 14 systems reviewed and as per HPI. PHYSICAL EXAM: The patient in bed, in no apparent distress, hard of hearing. Vital Signs: Temperature 97.6, heart rate 64 beats per minute, respiratory rate 16 per minute, O2 sat 98% on room air, blood pressure 126/70. HEENT: Pupils equal, reactive to light. Mucous membranes moist. The patient reports dry mouth and having to drink water a lot. Poor oral hygiene. Few teeth are rotten, reported cavities and abscesses in his teeth. Has left tonsil that is enlarged. The patient reports known history of tonsillar hypertrophy. Neck: Supple. No adenopathy. Lungs: Clear to auscultation. No stridor, wheezes, or rhonchi. Cardiovascular: S1, S2 present. Regular. No murmurs, gallops, or rubs. Abdomen: Soft, nontender, nondistended. Bowel sounds present. Extremities: 2+ bilaterally. No edema. Neurologic: Alert, awake, and oriented x3. No focal deficits. Skin: Intact. No bruises. DIAGNOSTIC STUDIES/LAB DATA: WBC count 4.0, hemoglobin 14.5, hematocrit 43, platelet count 188. INR 1.70. D-dimer less than 200. Sodium 134, potassium 3.9, chloride 102, bicarb 25, BUN 19, creatinine 0.81. Troponin negative x2. Lactic acid 1.3. Chest x-ray performed on admission was personally reviewed by me, no acute air space opacities. The patient had stress test performed which showed evidence of infarct likely from prior DE. IMPRESSION AND RECOMMENDATIONS: 65-year-old male with extensive cardiac history and coronary artery disease, status post myocardial infarction, coronary artery bypass grafting, and stent placement with worsening shortness of breath over the past month, worsening symptoms since the stroke with feeling of throat closing off. Shortness of breath, unclear etiology: Given recent stroke, we will need to evaluate for bulbar weakness. I do not think his symptoms are stemming from underlying pulmonary issue. Will obtain spirometry to evaluate for obstruction giving smoking history in the past. The patient has coronary artery disease and recent cerebrovascular accident which might be contributing to his symptoms. He is also on beta blockers, however, at a very low dose. Do not suspect orthostatic hypotension. His chest x-ray did not reveal low volumes or evidence of diaphragmatic paralysis or pleural effusion or other parenchymal opacities. His D-dimer is within normal limits with no suspicion for pulmonary embolism. I will order blood gas to be performed in the morning to evaluate for hypoventilation and hypercapnia from possible bulbar weakness. Will also obtain overnight oximetry for evaluation of hypoxemia at night and possible obstructive sleep apnea. He lives by himself and reports history of snoring and disruptive sleep at night. If overnight oximetry is suggestive of hypoxemia, will pursue sleep study at that point. Agree with continuing with PPI. I do not think he is on any other medications that would cause him to have muscle weakness. Further recommendations pending above test results. The patient also reports scratchy feeling in the throat, difficulty swallowing without significant gastroesophageal reflux disease symptoms, might benefit from ENT evaluation of vocal cords even though he does not have stridor at this time. Vocal cord involvement with Brittanie or with acid reflux should be ruled out. Thank you for allowing me to participate in the care of your patient. [id number]/[facility] #: [id number] MILY
[2016-10-03] MEDS: Chlorhexidine MOUTHWASH 0.12%* 15 ML UDC SWISH SPIT SCH (21:41)
[2016-10-04] MEDS: Omeprazole CAP* 20 MG PO SCH (06:12)
[2016-10-04 07:47] LABS: PCO2 Arterial 29 mmHg (35-45)
[2016-10-04] MEDS: Enalapril TAB* 5 MG PO SCH (08:41)
[2016-10-04] MEDS: Isosorbide Mononitrate ER TAB* 30 MG PO SCH (08:41)
[2016-10-04] MEDS: Metoprolol Succinate XL TAB* 25 MG PO SCH (08:42)
[2016-10-04] MEDS: Aspirin Low Dose CHEW TAB* 81 MG PO SCH (08:42)
[2016-10-04] MEDS: Chlorhexidine MOUTHWASH 0.12%* 15 ML UDC SWISH SPIT SCH ×4 (08:43→21:29)
[2016-10-04] MEDS: PTO:Budesonide/Formote 80/4.5(NF) MDI INH SCH ×2 (08:59→19:50)
--- NOTE | 2016-10-04 09:26 | PN ---
Subjective Date of Service: 10/04/16 Interval History: No subj change. Pt states he has lost over 30 lbs in past 6 months, some decrease in appetite. Occ food sticks in his chest and he has to drink water to wash it down. Objective Active Medications: Acetaminophen (Tylenol Tab*) 650 mg PO Q4H PRN PRN Reason: FEVER/PAIN Aspirin (Aspirin Low Dose Tab*) 81 mg PO DAILY [facility] Last Admin: 10/04/16 08:42 Dose: 81 mg Atorvastatin Calcium (Lipitor*) 40 mg PO QPM [facility] Last Admin: 10/03/16 17:04 Dose: 40 mg Budesonide/Formoterol Fumarate (Symbicort 80/4.5 (Nf)) 2 aer INH BID [facility] PRN Reason: Protocol Last Admin: 10/04/16 08:59 Dose: 2 puff Chlorhexidine Gluconate (Peridex Mouth Wash 0.12%*) 15 ml SWISH SPIT QID [facility] Last Admin: 10/04/16 08:43 Dose: 15 ml Enalapril Maleate (Vasotec Tab*) 2.5 mg PO DAILY [facility] Last Admin: 10/04/16 08:41 Dose: 2.5 mg Isosorbide Mononitrate (Imdur Er Tab*) 30 mg PO DAILY [facility] Last Admin: 10/04/16 08:41 Dose: 30 mg Metoprolol Succinate (Toprol Xl Tab*) 12.5 mg PO DAILY [facility] Last Admin: 10/04/16 08:42 Dose: 12.5 mg Omeprazole (Prilosec Cap*) 20 mg PO DAILY@0600 [facility] Last Admin: 10/04/16 06:12 Dose: 20 mg Ondansetron HCl (Zofran Inj*) 4 mg IV Q6H PRN PRN Reason: NAUSEA Warfarin Sodium (Coumadin Tab(*)) 4 mg PO DAILY@1700 [facility] PRN Reason: Protocol Last Admin: 10/03/16 16:05 Dose: 4 mg Vital Signs 10/03/16 10/03/16 10/04/16 19:10 20:00 00:21 Temperature 97.9 F 97.6 F Pulse Rate 63 74 Respiratory 18 18 20 Rate Blood Pressure 111/62 92/57 (mmHg) O2 Sat by Pulse 99 97 Oximetry 10/04/16 10/04/16 10/04/16 04:19 06:00 07:22 Temperature 97.4 F 97.6 F Pulse Rate 64 58 Respiratory 20 16 Rate Blood Pressure 99/54 117/66 (mmHg) O2 Sat by Pulse 99 97 99 Oximetry Oxygen Devices in Use Now: None Appearance: Alert, standing in his room. Somewhat anxious. Looks comfortable. Not dyspneic. Eyes: No Scleral Icterus Ears/Nose/Mouth/Throat: Clear Oropharnyx, Mucous Membranes Moist Neck: NL Appearance and Movements; NL JVP, No Thyroid Enlargement, Masses Respiratory: Symmetrical Chest Expansion and Respiratory Effort, Clear to Auscultation, Clear to Percussion Cardiovascular: NL Sounds; No Murmurs; No JVD, RRR, No Edema, - Extremities: No Edema, No Clubbing, Cyanosis, - Skin: No Rash or Ulcers, No Nodules or Sclerosis, - Neurological: Alert and Oriented x 3, NL Sensation Result Diagrams: 10/03/16 08:18 10/03/16 08:18 Additional Lab and Data: Lab Results 10/02/16 10/02/16 10/02/16 Range/Units 14:45 14:45 14:45 WBC 7.6 (3.5-10.8) 10^3/ul RBC 4.79 (4.0-5.4) 10^6/ul Hgb 14.3 (14.0-18.0) g/dl Hct 43 (42-52) % MCV 90 (80-94) fL MCH 30 (27-31) pg MCHC 33 (31-36) g/dl RDW 15 (10.5-15) % Plt Count 212 (150-450) 10^3/ul MPV 8 (7.4-10.4) um3 Neut % (Auto) 74.1 (38-83) % Lymph % (Auto) 17.4 L (25-47) % Dixon % (Auto) 7.2 (1-9) % Eos % (Auto) 0.7 (0-6) % Baso % (Auto) 0.6 (0-2) % Absolute Neuts (auto) 5.6 (1.5-7.7) 10^3/ul Absolute Lymphs (auto) 1.3 (1.0-4.8) 10^3/ul Absolute Monos (auto) 0.5 (0-0.8) 10^3/ul Absolute Eos (auto) 0.1 (0-0.6) 10^3/ul Absolute Basos (auto) 0 (0-0.2) 10^3/ul Absolute Nucleated RBC 0.01 10^3/ul Nucleated RBC % 0.1 INR (Anticoag Therapy) (0.89-1.11) D-Dimer, Quantitative (Less Than 230) ng/mL Sodium 136 (133-145) mmol/L Potassium 3.8 (3.5-5.0) mmol/L Chloride 104 (101-111) mmol/L Carbon Dioxide 24 (22-32) mmol/L Anion Gap 8 (2-11) mmol/L BUN 19 (6-24) mg/dL Creatinine 0.76 (0.67-1.17) mg/dL Est GFR ( Amer) 133.2 (>60) Est GFR (Non-Af Amer) 103.6 (>60) BUN/Creatinine Ratio 25.0 H (8-20) Glucose 88 (70-100) mg/dL Lactic Acid 1.3 (0.5-2.0) mmol/L Calcium 9.3 (8.6-10.3) mg/dL Total Bilirubin 0.70 (0.2-1.0) mg/dL AST 31 (13-39) U/L ALT 19 (7-52) U/L Alkaline Phosphatase 69 (34-104) U/L Troponin I 0.01 (<0.04) ng/mL Total Protein 7.2 (6.4-8.9) g/dL Albumin 4.2 (3.2-5.2) g/dL Globulin 3.0 (2-4) g/dL Albumin/Globulin Ratio 1.4 (1-3) 10/02/16 Range/Units 14:45 WBC (3.5-10.8) 10^3/ul RBC (4.0-5.4) 10^6/ul Hgb (14.0-18.0) g/dl Hct (42-52) % MCV (80-94) fL MCH (27-31) pg MCHC (31-36) g/dl RDW (10.5-15) % Plt Count (150-450) 10^3/ul MPV (7.4-10.4) um3 Neut % (Auto) (38-83) % Lymph % (Auto) (25-47) % Dixon % (Auto) (1-9) % Eos % (Auto) (0-6) % Baso % (Auto) (0-2) % Absolute Neuts (auto) (1.5-7.7) 10^3/ul Absolute Lymphs (auto) (1.0-4.8) 10^3/ul Absolute Monos (auto) (0-0.8) 10^3/ul Absolute Eos (auto) (0-0.6) 10^3/ul Absolute Basos (auto) (0-0.2) 10^3/ul Absolute Nucleated RBC 10^3/ul Nucleated RBC % INR (Anticoag Therapy) 1.66 H (0.89-1.11) D-Dimer, Quantitative < 200 (Less Than 230) ng/mL Sodium (133-145) mmol/L Potassium (3.5-5.0) mmol/L Chloride (101-111) mmol/L Carbon Dioxide (22-32) mmol/L Anion Gap (2-11) mmol/L BUN (6-24) mg/dL Creatinine (0.67-1.17) mg/dL Est GFR ( Amer) (>60) Est GFR (Non-Af Amer) (>60) BUN/Creatinine Ratio (8-20) Glucose (70-100) mg/dL Lactic Acid (0.5-2.0) mmol/L Calcium (8.6-10.3) mg/dL Total Bilirubin (0.2-1.0) mg/dL AST (13-39) U/L ALT (7-52) U/L Alkaline Phosphatase (34-104) U/L Troponin I (<0.04) ng/mL Total Protein (6.4-8.9) g/dL Albumin (3.2-5.2) g/dL Globulin (2-4) g/dL Albumin/Globulin Ratio (1-3) Assess/Plan/Problems-Billing Assessment: - Patient Problems (1) Dyspnea Current Visit: Yes Status: Acute Code(s): R06.00 - DYSPNEA, UNSPECIFIED SNOMED Code(s): 995446905 Comment: Possible anginal equivalent, but not exertional. Nuclear exercise stress test 10/03. Known CAD s/p CABG and stenting. Diminished LVEF on echo last month. Continue ASA, BB, statin. Stress test showed old scar, no reversible changes. Dr. Aranda's consultation appreciated. ABG's show hyperventilation, low A-A gradient. Overnight oximetry showed less than 1% time O2 sat under 90%. CT chest ordered. (2) LV (left ventricular) mural thrombus Current Visit: Yes Status: Acute Code(s): ALA0964 - SNOMED Code(s): 342690820489713 Comment: No thrombus on echo last month. Continue warfarin. INR 10/05/16. (3) HTN (hypertension) Current Visit: No Status: Acute Code(s): I10 - ESSENTIAL (PRIMARY) HYPERTENSION SNOMED Code(s): 92593508 Comment: Continue metoprolol, enalapril, and imdur. (4) Cerebrovascular accident (CVA) due to occlusion of right middle cerebral artery Current Visit: No Status: Acute Code(s): I63.511 - CEREB INFRC D/T UNSP OCCLS OR STENOS OF RIGHT MID CEREB ART SNOMED Code(s): 105150208 Comment: - Continue ASA, statin, warfarin. Mild residual deficit, mainly sensory. (5) Decubitus skin ulcer Current Visit: Yes Status: Acute Code(s): L89.90 - PRESSURE ULCER OF UNSPECIFIED SITE, UNSPECIFIED STAGE SNOMED Code(s): 404531767 Comment: Developed due to prolonged immobility at onset of CVA /2017. (6) Dysphagia Current Visit: Yes Status: Acute Code(s): R13.10 - DYSPHAGIA, UNSPECIFIED SNOMED Code(s): 03166433 Comment: With weight loss. Dr. Mcclure to consult.
[2016-10-04] MEDS ORDERED: FLUoxetine CAP* 10 MG PO SCH (12:00)
[2016-10-04] MEDS ORDERED: Midazolam* 1 MG/ML 10 ML VIAL (10 MG) ONE (15:27)
[2016-10-04] MEDS ORDERED: fentaNYL* 50 MCG/ML 2 ML VIAL (100 MCG VIAL) ONE (15:28)
--- NOTE | 2016-10-04 16:28 | PN ---
Progress Note - Progress Note Note: Pulmonary consult f/u note 10/04/16. Pt seen and examined at bedside. Pt c/o signficant discomfort in his throat and is tearful about not being able to breath when he is at home. Reports significant wt loss recently, reports scratchy feeling in his throat and difficulty swallowing Active Medications Generic Name Dose Route Start Last Admin Trade Name Freq PRN Reason Stop Dose Admin Acetaminophen 650 mg 10/02/16 16:07 Tylenol Tab* PO Q4H PRN FEVER/PAIN Aspirin 81 mg 10/03/16 09:00 10/04/16 08:42 Aspirin Low Dose Tab* PO 81 mg DAILY [facility] Administration Atorvastatin Calcium 40 mg 10/02/16 18:00 10/03/16 17:04 Lipitor* PO 40 mg QPM [facility] Administration Budesonide/Formoterol Fumarate 2 aer 10/02/16 21:00 10/04/16 08:59 Symbicort 80/4.5 (Nf) INH 2 puff BID [facility] Administration Protocol Chlorhexidine Gluconate 15 ml 10/03/16 21:00 10/04/16 13:04 Peridex Mouth Wash 0.12%* SWISH SPIT 15 ml QID [facility] Administration Enalapril Maleate 2.5 mg 10/03/16 09:00 10/04/16 08:41 Vasotec Tab* PO 2.5 mg DAILY [facility] Administration Fluoxetine HCl 10 mg 10/04/16 12:00 10/04/16 11:47 Prozac Cap* PO 10 mg DAILY [facility] Administration Isosorbide Mononitrate 30 mg 10/03/16 09:00 10/04/16 08:41 Imdur Er Tab* PO 30 mg DAILY [facility] Administration Metoprolol Succinate 12.5 mg 10/03/16 09:00 10/04/16 08:42 Toprol Xl Tab* PO 12.5 mg DAILY [facility] Administration Omeprazole 20 mg 10/03/16 06:00 10/04/16 06:12 Prilosec Cap* PO 20 mg DAILY@0600 [facility] Administration Ondansetron HCl 4 mg 10/02/16 16:07 Zofran Inj* IV Q6H PRN NAUSEA Warfarin Sodium 4 mg 10/02/16 17:09 10/03/16 16:05 Coumadin Tab(*) PO 4 mg DAILY@1700 [facility] Administration Protocol Vital Signs Temp Pulse Resp BP Pulse Ox 97.3 F 67 20 109/67 99 10/04/16 11:05 10/04/16 11:05 10/04/16 11:05 10/04/16 11:05 10/04/16 11:05 O/E: Pt in NAD, tearful about his condition HEENT:PERRLA, No JVD Lungs: Clear to auscultation CVS: S1, S2+ Abd: Soft, BS+ Neuro: No focal defecits Laboratory Results - last 24 hr 10/04/16 07:40 ABG pH 7.51 H ABG pCO2 29 L ABG pO2 120 H ABG HCO3 25.8 ABG O2 Saturation 99.6 H ABG Base Excess 1.1 Overnight oximetry: No evidence of signficant hypoxia, results discussed with pt I/R: Pt is 65 y o m with h/o CAD, S/p LA, CABG, stent palcement, recent CVA a/f evaluation of SOB, throat closing off, scratchy feeling in throat No evidence of pulmonary pathology, CXR clear, No evidence of signficant hypoxia on overnight oximetry No hypercapnia on ABG, indeed pt has hypocapnia likely from hyperventilation due to anxiety Less likely to be bulbar weakness given absence of hypercapnia He is to undergo GI evaluation and upper endoscopy given wt loss and difficulty swallowing Recommend ENT evaluation for upper airway exam to r/o vocal cord dysfunction D/w Dr Westfall
[2016-10-04] MEDS: Warfarin TAB(*) 4 MG PO SCH (16:51)
[2016-10-04] MEDS: Atorvastatin* 40 MG TAB PO SCH (16:51)
[2016-10-04] MEDS ORDERED: FLUoxetine CAP* 10 MG PO ONE (18:03)
--- NOTE | 2016-10-04 19:06 | RAD ---
INDICATION: Short of breath COMPARISON: Chest x-ray October 02, 2016 TECHNIQUE: Noncontrast axial source images were obtained from the thoracic inlet to the hemidiaphragms. Coronal and sagittal reconstructed images were acquired. The visualized neck to include the thyroid appear normal. Chest wall: There are no acute abnormalities of the bony thorax or chest wall. There is anatomy. There is no supraclavicular, infraclavicular, or axillary lymphadenopathy. Lungs : There are no pulmonary parenchymal masses or infiltrates. The pulmonary interstitium appears normal. There are no endobronchial lesions. Cardiomediastinal structures: The heart is normal in size. There is prior CABG. There is no pericardial effusion. There is no evidence of aortic aneurysm or dissection. The pulmonary vessels appear normal. There is no mediastinal or hilar adenopathy. The esophagus appears normal. Pleura : There are no pleural-based masses or effusions. Other: There are no acute or significant CT findings of the visualized upper abdomen. IMPRESSION: POSTOPERATIVE CHANGES WITH CABG. LUNGS CLEAR.
[2016-10-05] MEDS: Omeprazole CAP* 20 MG PO SCH (05:27)
--- NOTE | 2016-10-05 05:56 | PRO ---
DATE OF PROCEDURE: 10/04/16 - ROOM #[id number] PROCEDURE: Upper endoscopy. MEDICINES: Versed 4 mg IV, Fentanyl 25 mcg IV. NARRATIVE: This is a 65-year-old gentleman who has a recent history of a stroke , who presented with breathing difficulties, chest tightness, throat irritation , and dysphagia. He has undergone a complete pulmonary and cardiac evaluation. Due to his ongoing symptoms, upper endoscopy was recommended. DESCRIPTION OF PROCEDURE: After the procedure was discussed with the patient, risks and benefits were outlined, written consent was obtained. The patient was placed in the left lateral decubitus position and conscious sedation was administered. A video pediatric flexible gastroscope was inserted orally and passed very carefully into the esophagus. The esophagus, stomach, and duodenum to the second to third portion were well visualized. The patient tolerated the procedure well. There were no immediate complications. FINDINGS: The visualized portion of the oropharynx was normal. I did not appreciate any exudate or lesion. Esophagus was easily intubated and the esophageal mucosa was normal. There was a suggestion of a small inlet patch, but no other abnormality, no tumor, mass, stricture, erosive change or exudate. The stomach was entered and upon retroflexion, I do not appreciate a hiatal hernia. The gastric mucosa was normal without any ulceration or inflammatory change. The pylorus was normal and patent. The duodenal bulb was normal and the second to third portion of the duodenum was normal, with a normal folding pattern. CONCLUSION: Normal upper endoscopy without any evidence of esophageal abnormality. RECOMMENDATION: Other possible causes may need to be considered such as an ENT evaluation. This was discussed with the patient's hospitalist. [id number]/[facility] #: [id number] [facility]
[2016-10-05] MEDS: PTO:Budesonide/Formote 80/4.5(NF) MDI INH SCH (07:26)
[2016-10-05] MEDS ORDERED: FLUoxetine CAP* 20 MG PO SCH (09:00)
--- NOTE | 2016-10-05 09:25 | PN ---
Progress Note - Progress Note Note: Appt with Dr. Smith ([email or web address]) 10/11/16, at 3:20 PM.
[2016-10-05] MEDS: Aspirin Low Dose CHEW TAB* 81 MG PO SCH (09:52)
[2016-10-05] MEDS: Isosorbide Mononitrate ER TAB* 30 MG PO SCH (09:52)
[2016-10-05] MEDS: Chlorhexidine MOUTHWASH 0.12%* 15 ML UDC SWISH SPIT SCH ×3 (09:52→17:34)
[2016-10-05] MEDS: Metoprolol Succinate XL TAB* 25 MG PO SCH (09:52)
[2016-10-05] MEDS: Enalapril TAB* 5 MG PO SCH (09:53)
--- NOTE | 2016-10-05 10:27 | DCNOTE ---
Subjective Date of Service: 10/05/16 Interval History: Little if any subj change, still c/o SOB while talking to anyone. Objective Active Medications: Acetaminophen (Tylenol Tab*) 650 mg PO Q4H PRN PRN Reason: FEVER/PAIN Aspirin (Aspirin Low Dose Tab*) 81 mg PO DAILY [facility] Last Admin: 10/05/16 09:52 Dose: 81 mg Atorvastatin Calcium (Lipitor*) 40 mg PO QPM [facility] Last Admin: 10/04/16 16:51 Dose: 40 mg Budesonide/Formoterol Fumarate (Symbicort 80/4.5 (Nf)) 2 aer INH BID [facility] PRN Reason: Protocol Last Admin: 10/05/16 07:26 Dose: 2 puff Chlorhexidine Gluconate (Peridex Mouth Wash 0.12%*) 15 ml SWISH SPIT QID [facility] Last Admin: 10/05/16 09:52 Dose: 15 ml Fluoxetine HCl (Prozac Cap*) 20 mg PO DAILY [facility] Last Admin: 10/05/16 09:52 Dose: 20 mg Isosorbide Mononitrate (Imdur Er Tab*) 30 mg PO DAILY [facility] Last Admin: 10/05/16 09:52 Dose: 30 mg Lisinopril (Prinivil Tab*) 5 mg PO DAILY [facility] Metoprolol Succinate (Toprol Xl Tab*) 12.5 mg PO DAILY [facility] Last Admin: 10/05/16 09:52 Dose: 12.5 mg Omeprazole (Prilosec Cap*) 20 mg PO DAILY@0600 [facility] Last Admin: 10/05/16 05:27 Dose: 20 mg Ondansetron HCl (Zofran Inj*) 4 mg IV Q6H PRN PRN Reason: NAUSEA Warfarin Sodium (Coumadin Tab(*)) 4 mg PO DAILY@1700 [facility] PRN Reason: Protocol Last Admin: 10/04/16 16:51 Dose: 4 mg Vital Signs 10/04/16 10/04/16 10/04/16 11:05 16:49 19:21 Temperature 97.3 F 97.8 F 98.3 F Pulse Rate 67 65 74 Respiratory 20 16 16 Rate Blood Pressure 109/67 115/71 91/64 (mmHg) O2 Sat by Pulse 99 99 100 Oximetry 10/04/16 10/04/16 10/04/16 19:42 20:00 21:29 Temperature Pulse Rate Respiratory 18 Rate Blood Pressure 95/65 105/52 (mmHg) O2 Sat by Pulse Oximetry 10/04/16 10/05/16 10/05/16 23:55 04:12 07:34 Temperature 97.3 F 97.3 F 97.6 F Pulse Rate 76 61 69 Respiratory 20 20 20 Rate Blood Pressure 94/58 103/50 101/68 (mmHg) O2 Sat by Pulse 98 100 100 Oximetry 10/05/16 07:56 Temperature Pulse Rate Respiratory 20 Rate Blood Pressure (mmHg) O2 Sat by Pulse Oximetry Oxygen Devices in Use Now: None Appearance: Alert, somewhat anxious, otherwise looks comfortable. Tends to stand and pace often. Eyes: No Scleral Icterus Respiratory: Symmetrical Chest Expansion and Respiratory Effort, Clear to Auscultation, Clear to Percussion Cardiovascular: NL Sounds; No Murmurs; No JVD, RRR, No Edema, - Extremities: No Edema, No Clubbing, Cyanosis, - Skin: No Rash or Ulcers, No Nodules or Sclerosis, - Neurological: Alert and Oriented x 3, NL Sensation Result Diagrams: 10/03/16 08:18 10/03/16 08:18 Additional Lab and Data: Lab Results 10/02/16 10/02/16 10/02/16 Range/Units 14:45 14:45 14:45 WBC 7.6 (3.5-10.8) 10^3/ul RBC 4.79 (4.0-5.4) 10^6/ul Hgb 14.3 (14.0-18.0) g/dl Hct 43 (42-52) % MCV 90 (80-94) fL MCH 30 (27-31) pg MCHC 33 (31-36) g/dl RDW 15 (10.5-15) % Plt Count 212 (150-450) 10^3/ul MPV 8 (7.4-10.4) um3 Neut % (Auto) 74.1 (38-83) % Lymph % (Auto) 17.4 L (25-47) % Mayes % (Auto) 7.2 (1-9) % Eos % (Auto) 0.7 (0-6) % Baso % (Auto) 0.6 (0-2) % Absolute Neuts (auto) 5.6 (1.5-7.7) 10^3/ul Absolute Lymphs (auto) 1.3 (1.0-4.8) 10^3/ul Absolute Monos (auto) 0.5 (0-0.8) 10^3/ul Absolute Eos (auto) 0.1 (0-0.6) 10^3/ul Absolute Basos (auto) 0 (0-0.2) 10^3/ul Absolute Nucleated RBC 0.01 10^3/ul Nucleated RBC % 0.1 INR (Anticoag Therapy) (0.89-1.11) D-Dimer, Quantitative (Less Than 230) ng/mL Sodium 136 (133-145) mmol/L Potassium 3.8 (3.5-5.0) mmol/L Chloride 104 (101-111) mmol/L Carbon Dioxide 24 (22-32) mmol/L Anion Gap 8 (2-11) mmol/L BUN 19 (6-24) mg/dL Creatinine 0.76 (0.67-1.17) mg/dL Est GFR ( Amer) 133.2 (>60) Est GFR (Non-Af Amer) 103.6 (>60) BUN/Creatinine Ratio 25.0 H (8-20) Glucose 88 (70-100) mg/dL Lactic Acid 1.3 (0.5-2.0) mmol/L Calcium 9.3 (8.6-10.3) mg/dL Total Bilirubin 0.70 (0.2-1.0) mg/dL AST 31 (13-39) U/L ALT 19 (7-52) U/L Alkaline Phosphatase 69 (34-104) U/L Troponin I 0.01 (<0.04) ng/mL Total Protein 7.2 (6.4-8.9) g/dL Albumin 4.2 (3.2-5.2) g/dL Globulin 3.0 (2-4) g/dL Albumin/Globulin Ratio 1.4 (1-3) 10/02/16 Range/Units 14:45 WBC (3.5-10.8) 10^3/ul RBC (4.0-5.4) 10^6/ul Hgb (14.0-18.0) g/dl Hct (42-52) % MCV (80-94) fL MCH (27-31) pg MCHC (31-36) g/dl RDW (10.5-15) % Plt Count (150-450) 10^3/ul MPV (7.4-10.4) um3 Neut % (Auto) (38-83) % Lymph % (Auto) (25-47) % Mayes % (Auto) (1-9) % Eos % (Auto) (0-6) % Baso % (Auto) (0-2) % Absolute Neuts (auto) (1.5-7.7) 10^3/ul Absolute Lymphs (auto) (1.0-4.8) 10^3/ul Absolute Monos (auto) (0-0.8) 10^3/ul Absolute Eos (auto) (0-0.6) 10^3/ul Absolute Basos (auto) (0-0.2) 10^3/ul Absolute Nucleated RBC 10^3/ul Nucleated RBC % INR (Anticoag Therapy) 1.66 H (0.89-1.11) D-Dimer, Quantitative < 200 (Less Than 230) ng/mL Sodium (133-145) mmol/L Potassium (3.5-5.0) mmol/L Chloride (101-111) mmol/L Carbon Dioxide (22-32) mmol/L Anion Gap (2-11) mmol/L BUN (6-24) mg/dL Creatinine (0.67-1.17) mg/dL Est GFR ( Amer) (>60) Est GFR (Non-Af Amer) (>60) BUN/Creatinine Ratio (8-20) Glucose (70-100) mg/dL Lactic Acid (0.5-2.0) mmol/L Calcium (8.6-10.3) mg/dL Total Bilirubin (0.2-1.0) mg/dL AST (13-39) U/L ALT (7-52) U/L Alkaline Phosphatase (34-104) U/L Troponin I (<0.04) ng/mL Total Protein (6.4-8.9) g/dL Albumin (3.2-5.2) g/dL Globulin (2-4) g/dL Albumin/Globulin Ratio (1-3) Assess/Plan/Problems-Billing Assessment: - Patient Problems (1) Dyspnea Current Visit: Yes Status: Acute Code(s): R06.00 - DYSPNEA, UNSPECIFIED SNOMED Code(s): 403368398 Comment: Nuclear exercise stress test 10/03 showed akintic and hypokinetic areas but no reversible ischemia. Known CAD s/p CABG and stenting. Diminished LVEF on echo 09/13/16, but LVEF >50% on nuclear images this admission. Continue ASA, BB, statin. Change from enalapril to lisinopril to reduce out of pocket cost to pt. Dr. Aranda's consultation appreciated. ABG's show hyperventilation, low A-A gradient. Overnight oximetry showed less than 1% time O2 sat under 90%. CT chest negative other than post-surgical changes. (2) LV (left ventricular) mural thrombus Current Visit: Yes Status: Acute Code(s): OAT0211 - SNOMED Code(s): 108738118117471 Comment: No thrombus on echo last month. Continue warfarin. INR 2.03 . (3) HTN (hypertension) Current Visit: No Status: Acute Code(s): I10 - ESSENTIAL (PRIMARY) HYPERTENSION SNOMED Code(s): 65490319 Comment: Continue metoprolol, lisnopril, and imdur. (4) Cerebrovascular accident (CVA) due to occlusion of right middle cerebral artery Current Visit: No Status: Acute Code(s): I63.511 - CEREB INFRC D/T UNSP OCCLS OR STENOS OF RIGHT MID CEREB ART SNOMED Code(s): 524637271 Comment: - Continue ASA, statin, warfarin. Mild residual deficit, mainly sensory. (5) Decubitus skin ulcer Current Visit: Yes Status: Acute Code(s): L89.90 - PRESSURE ULCER OF UNSPECIFIED SITE, UNSPECIFIED STAGE SNOMED Code(s): 875310116 Comment: Developed due to prolonged immobility at onset of CVA /2017. Pt sits very little. [facility] nurse examined pt 10/05 and agreed there were no open areas any more. (6) Dysphagia Current Visit: Yes Status: Acute Code(s): R13.10 - DYSPHAGIA, UNSPECIFIED SNOMED Code(s): 90406487 Comment: With weight loss. EGD negative. My clinical diagnosis is his symptoms are due to anxiety. Rx fluoxetine 20 mg daily. Status and Disposition: Discharge now. Fup [place] Canario.
--- NOTE | 2016-10-05 10:32 | PN ---
Progress Note - Progress Note Note: Time spent on discharge 55 minutes.
[2016-10-05 16:03] VITALS: BP 115/67
[2016-10-05] MEDS: Atorvastatin* 40 MG TAB PO SCH (17:34)
[2016-10-05] MEDS: Warfarin TAB(*) 4 MG PO SCH (17:34)
--- NOTE | 2016-10-06 02:51 | DS ---
DISCHARGE SUMMARY: DATE OF ADMISSION: 10/03/16 DATE OF DISCHARGE: 10/05/16 HISTORY: This 65-year-old man came complaining of chest tightness, dyspnea on exertion, throat pain. I saw him several days in the hospital. He mainly focused on difficulty breathing and some discomfort in his chest. He was evaluated with a CT scan of the chest, overnight pulse oximetry on room air, arterial blood gas, nuclear medicine stress test. He had a consultation by Dr. Aranda. He had consultation by Dr. Mcclure with esophagogastroduodenoscopy. All of the above tests were negative except for his known prior myocardial infarctions. Review of his echocardiogram from 09/13/16 showed decrease in ejection fraction compared to 06/23; however, his ejection fraction on the nuclear images from this admission were over 50%. The patient's symptoms really did not vary. He was quite ambulatory, in fact hardly ever sat down and would pace in the room and walk through the halls quite freely. His O2 saturation was always 99% to 100%. He was never tachypneic. Never appeared to be in distress, although he said he was having distress. He said he was afraid if I sent him home, he would suffocate and . My impression is his symptoms are mainly, if not entirely, due to anxiety. I note Dr. Moreau had prescribed fluoxetine for him, which he took for about a month, but for some reason stopped a week or two ago. I restarted him on the same dose, 20 mg daily. He did seem to understand my explanation that all the tests were unremarkable and that his heart was stable and his lungs were good, and there was no physical cause that we could determine for him feeling short of breath. He had a little bit of hypoventilation in the arterial blood gas. I think he understands that his problem is anxiety, but it is difficult for him to overcome it. He recalls the experience of being alone on the floor and unable to move when he had a stroke in June. He lives alone and is really socially isolated. In addition, he is having trouble with his car as well as financial trouble being on a very limited budget and not having any insurance for medications. I did switch him from enalapril to lisinopril as this would greatly reduce his out- of-pocket cost. He had been prescribed chlorhexidine mouthwash at the time of his acute stroke and feels that has made his mouth better and would like that, and I note this is another 4 dollar medication which he could afford. FINAL DIAGNOSES: 1. Dyspnea. 2. Anxiety. 3. Ischemic coronary artery disease. 4. History of apical thrombus. DISCHARGE MEDICATIONS: 1. Chlorhexidine mouthwash 15 mL q.i.d. p.r.n. 2. Fluoxetine 20 mg daily. 3. Lisinopril 2.5 to 5 mg daily. 4. Aspirin 81 mg daily. 5. Atorvastatin 40 mg daily. 6. Omeprazole 20 mg daily. 7. Warfarin 4 mg daily. 8. Isosorbide mononitrate 30 mg daily. 9. Budesonide formoterol 160/4.5 two puffs b.i.d. 10. Metoprolol succinate 12.5 mg daily. CC: Dr. Smith; Dr. Ledbetter; Dr. Moreau * [id number]/[facility] #: [id number] MTDD
[2016-10-06] MEDS ORDERED: Lisinopril TAB* 5 MG PO SCH (09:00)
== END 2016-10-05 18:22 | disposition home or self-care (01) | DRG 880 ==
LOC: ED 12:46 → MEDTELE 16:05 → INTOOBSV 10-03 18:08 → OBSVTOIN 10-03 18:08
PROVIDERS: ADMIT Hospitalist; ATTEND Internal Medicine
DX: R07.89 Other chest pain (principal); R06.00 Dyspnea, unspecified; R07.0 Pain in throat; I25.2 Old myocardial infarction; F41.9 Anxiety disorder, unspecified; I10 Essential (primary) hypertension; E78.5 Hyperlipidemia, unspecified; I25.10 Atherosclerotic heart disease of native coronary artery without angina pectoris; Z95.1 Presence of aortocoronary bypass graft; Z79.82 Long term (current) use of aspirin; Z95.5 Presence of coronary angioplasty implant and graft; Z79.01 Long term (current) use of anticoagulants; Z87.891 Personal history of nicotine dependence; Z82.49 Family history of ischemic heart disease and other diseases of the circulatory system; Z86.73 Personal history of transient ischemic attack (TIA), and cerebral infarction without residual deficits
CPT/HCPCS: 36415; 36600; 71010; 71250; 78452; 80048; 80053; 80061; 82803; 83036; 83605; 84484; 85025; 85379; 85610; 87040; 93005; 93017; 94640; 94762; 96374; 99283; A9270-GY; A9502; G0378; J2250; J2785; J3010

== ENCOUNTER 2016-10-13 12:53 | Emergency (ER) | payer MEDICARE ==
[2016-10-13] MEDS ORDERED: NS 0.9% 1000 ML* 1,000 ML IV ONE (13:33)
[2016-10-13 13:54] LABS: Hematocrit 40 % (42-52); Hemoglobin 13.2 g/dl (14.0-18.0); Mean Corpuscular HGB Conc 33 g/dl (31-36); Mean Corpuscular Hemoglobin 30 pg (27-31); Mean Corpuscular Volume 89 fL (80-94); Mean Platelet Volume 8 um3 (7.4-10.4); Red Blood Count 4.47 10^6/ul (4.0-5.4); Red Cell Distribution Width 14 % (10.5-15); White Blood Count 6.8 10^3/ul (3.5-10.8)
--- NOTE | 2016-10-13 13:59 | RAD ---
HISTORY: Shortness of breath COMPARISONS: October 02, 2016 VIEWS:1: Single frontal portable view of the chest at 1:48 PM FINDINGS: LINES AND TUBES: None. CARDIOMEDIASTINAL SILHOUETTE: The cardiomediastinal silhouette is normal for portable technique. PLEURA: The costophrenic angles are sharp. No pleural abnormalities are noted. LUNG PARENCHYMA: The lungs are clear. ABDOMEN: The upper abdomen is clear. There is no subphrenic gas. BONES AND SOFT TISSUES: The patient is status post median sternotomy. IMPRESSION: NO ACTIVE CARDIOPULMONARY DISEASE.
[2016-10-13 14:06] LABS: Albumin 3.8 g/dL (3.2-5.2); BUN/Creatinine Ratio 16.7 (8-20); Calcium 8.9 mg/dL (8.6-10.3); EGFR African American 118.7 (>60); EGFR Non-African American 92.3 (>60); Globulin 2.8 g/dL (2-4); Potassium 3.9 mmol/L (3.5-5.0); Total Bilirubin 0.5 mg/dL (0.2-1.0); Total Protein 6.6 g/dL (6.4-8.9)
[2016-10-13 14:07] LABS: PCO2 Arterial 33 mmHg (35-45)
[2016-10-13] MEDS ORDERED: Iohexol 350* (CONTRAST) 500 ML MDV IV ONE (15:27)
[2016-10-13 15:48] LABS: C Reactive Protein 1.11 mg/L (< 5.00)
--- NOTE | 2016-10-13 15:56 | RAD ---
Indication: Shortness of breath, pulmonary embolus. Contrast: Administered 64.1 ml of OMNIPAQUE 350 mg/ml CTA of the chest was performed after IV contrast demonstration. Coronal and sagittal reconstructed images were obtained. The pulmonary arterial tree is well opacified. No filling defects are noted to suggest pulmonary embolus. The aorta demonstrates no evidence of aortic dissection or aneurysmal dilatation. The heart is of normal size without evidence of pericardial effusion. The trachea and major bronchi appear patent. The lung larose demonstrate no evidence of alveolar consolidation. No mediastinal or hilar adenopathy noted. The visualized abdominal organs are grossly unremarkable. The bony structures demonstrates degenerative changes of the lower thoracic spine. IMPRESSION: No evidence of pulmonary embolus is noted.
[2016-10-13] MEDS ORDERED: LORazepam TAB(*) 0.5 MG PO ONE ×2 (15:58→21:22)
[2016-10-13] MEDS ORDERED: Iohexol 300* (CONTRAST) 10 ML SDV IV ONE (16:51)
--- NOTE | 2016-10-13 17:10 | RAD ---
INDICATION: Shortness, shortness of breath and choking sensation. COMPARISON: Comparison is made with a prior CT angiogram of the head and neck from June 21, 2016. TECHNIQUE: A CT scan of the neck was performed with intravenous contrast following intravenous injection of 50 ml of Omnipaque 300 nonionic contrast. Contiguous axial sections were obtained from the skull base through the lung apices. Images were reconstructed in the coronal and sagittal planes. FINDINGS: The airway is patent. The epiglottis and aryepiglottic folds appear within normal limits. No retropharyngeal soft tissue swelling is noted. There is increased soft tissue density in the left tonsillar fossa possibly representing normal glandular tissue versus a mass. This measures 1.3 x 1.0 cm in size. Recommend direct inspection. No significant enlarged nodes are seen. The parotid and submandibular glands appear to be within normal limits. The thyroid gland appears normal. The lung apices appear clear. The visualized portion of the paranasal sinuses and mastoid air cells appear clear. There is decreased attenuation present in the visualized portion of the right temporal lobe and posterior right frontal lobe which was decreased in density on the prior CT angiogram likely representing a an old right middle cerebral artery infarct. Recommend clinical correlation. No significant focal osseous abnormality is seen. IMPRESSION: 1. THERE IS INCREASED SOFT TISSUE DENSITY IN THE LEFT TONSILLAR FOSSA POSSIBLY REPRESENTING NORMAL GLANDULAR TISSUE VERSUS A MASS. RECOMMEND DIRECT CLINICAL INSPECTION. 2. PROBABLE OLD RIGHT MIDDLE CEREBRAL ARTERY INFARCT. RECOMMEND CLINICAL CORRELATION.
--- NOTE | 2016-10-13 18:12 | CONS ---
CC: Dr. Gabo Ledbetter * HOSPITALIST MEDICINE CONSULTATION: DATE OF CONSULT: 10/13/16 - EMERGENCY DEPT PRIMARY CARE PROVIDER: Dr. Gabo Ledbetter. REQUESTING PROVIDER: Dr. Elicia Sims. CONSULTING PROVIDER: BABITA Starkey. SUPERVISING PHYSICIAN: Dr. Georgina Leon. CHIEF COMPLAINT: Shortness of breath. HISTORY OF PRESENT ILLNESS: This is a 65-year-old gentleman with a history of coronary artery disease and subsequent ischemic cardiomyopathy with last ejection fraction estimated at 30% to 35% as well as hypertension, hyperlipidemia, prior CVA who presented to the emergency department with complaints of shortness of breath. The patient was seen in the hospital just about a week and a half ago with the same complaints. He at that time was admitted for further workup as he was also complaining of chest pain. The patient underwent at that time a CT of the chest which was unremarkable, overnight pulse oximetry which did show some mild hypoxia, but not for a prolonged period of time or terribly frequent. He had a nuclear stress test which showed a fixed anterior defect without any reversibility as well as an upper endoscopy with Dr. Mcclure which was unremarkable and an echocardiogram which showed an ejection fraction of 35% to 40% which is slightly worse than prior, but no new focal wall motion abnormalities. Despite significant evaluation, the patient still felt symptomatic and was severely anxious throughout his hospital stay, spent most of the time pacing the halls per his discharge summary. Apparently, the patient had recently been diagnosed with a stroke and also and the patient is extremely fearful of dying alone at home. The patient states that he followed up with his primary care provider since his last hospital admission and he was started on hydroxyzine and continued on the fluoxetine. He has taken a couple of doses of the hydroxyzine and does not feel that it provided any sufficient relief from his symptoms. Sometimes he feels that his symptoms originate in the chest as a feeling of tightness and some congestion, but the majority of the time, he was really focused on his neck and feels as if something is stuck in there. He has found perhaps a small white plaque near the back of his throat that he feels is a contributing symptom. The patient denies associated palpitations. No nausea, vomiting, or abdominal pain. The patient feels extremely fearful of returning home where he lives alone and he continues to stress that fact. He states that he feels safe here in the hospital and wishes to stay for "a couple of days." Since he reached the emergency department today, his initial vitals are within normal limits including an oxygen saturation of 98% on room air. No tachypnea noted or tachycardia. He underwent a chest x-ray which was unremarkable as well as a CTA of the chest despite a negative D-dimer which was also unremarkable and an ABG which demonstrates respiratory alkalosis indicating hyperventilation. His EKG is unchanged from prior which demonstrates a sinus rhythm with biphasic T waves in V2 and V4. Due to the patient's concern of returning home and request for hospital admission, hospitalists were requested to evaluate the patient. PAST MEDICAL HISTORY: 1. Coronary artery disease with ischemic cardiomyopathy with ejection fraction of 35% to 40%. 2. History of CVA without subsequent deficit. 3. Hypertension. 4. Hyperlipidemia. 5. Questionable history of COPD. PAST SURGICAL HISTORY: 1. CABG. 2. Cardiac catheterization x3. HOME MEDICATIONS: 1. Aspirin 81 mg p.o. daily. 2. Atorvastatin 40 mg p.o. daily. 3. Symbicort 160/4.5 two puffs inhaled twice daily. 4. Chlorhexidine mouthwash 15 mL swish and spit 4 times daily. 5. Prozac 20 mg p.o. daily. 6. Isosorbide 30 mg p.o. daily. 7. Lisinopril 5 mg p.o. daily. 8. Metoprolol succinate 12.5 mg p.o. daily. 9. Omeprazole 20 mg p.o. daily. 10. Coumadin 4 mg p.o. daily. SOCIAL HISTORY: The patient is a former smoker. Does not currently drink alcohol and is recently from his . REVIEW OF SYSTEMS: As noted above in HPI. All other systems have been reviewed and otherwise considered negative. PHYSICAL EXAM: Initial vitals: Temperature 98.4 degrees Fahrenheit, pulse 71 beats per minute, respiratory rate 16 per minute, oxygen saturation 98% on room air, and blood pressure 111/68 mmHg. General: This is a very anxious, but otherwise well-appearing gentleman who appears appropriate for his age, is well dressed, and in no acute distress. HEENT: Head is normocephalic, atraumatic. The patient is concerned perhaps about a white plaque near his right tonsil that is appreciated, but does not appear to be a significant concern based on limited ENT exam. Neck is supple and free of lymphadenopathy. Cardiovascular: Heart has a regular rate and rhythm without murmurs, rubs, or gallops. Respiratory: Clear to auscultation without wheezes, crackles, or rhonchi. Abdomen is soft and nontender to palpation. Extremities: There is no edema appreciated. Psych: The patient is alert, but severely anxious. Skin: Limited exam shows no concerning rashes or lesions. LABORATORY EVALUATION: CBC shows a white blood cell count of 6800, hemoglobin of 13.2 g/dL, and a platelet count of 198,000. INR of 2.18 with a D-dimer of less than 200. Blood gas shows a pH of 7.49 and a PCO2 of 33 with normal PO2 of 96 and bicarb of 26. Comprehensive metabolic panel is unremarkable with sodium of 132, potassium 3.9 , BUN of 14, creatinine of 0.84, glucose of 123, lactic acid of 1.6. Troponin negative at 0.0. CRP normal at 1.1. BNP mildly elevated at 289. IMAGING: EKG shows a sinus rhythm with biphasic T waves in V2 through V4 which is unchanged from prior. CTA of the chest shows no acute process including pulmonary embolus. Chest x-ray shows no acute process. Soft tissue of the neck CT is pending at this time. ASSESSMENT AND PLAN: This is a 65-year-old severely anxious gentleman with ischemic cardiomyopathy as well as hypertension, hyperlipidemia, recent cerebrovascular accident without residual deficit who presents to the emergency department with complaints of chest pain and shortness of breath with an otherwise negative workup. 1. Shortness of breath - the patient's symptoms seem to be most likely related to anxiety. He has had a thorough cardiopulmonary evaluation without evidence of a life-threatening condition. He does have a significant cardiomyopathy, but no evidence of subsequent decompensation. The patient has focused on his neck as being a potential etiology for his complaints and there is a soft tissue CT pending at this time. If abnormal or even if it is normal, would recommend outpatient ENT evaluation for direct laryngoscopy. Otherwise, control of the patient's anxiety would provide the most benefit. The patient does not require hospitalization for this complaint. His vital signs are within normal limits. Again with thorough cardiopulmonary evaluation, there are no acute abnormalities that would justify hospitalization or would benefit from hospitalization at this time. The patient's respiratory alkalosis also suggests hyperventilation and confirms suspicion of anxiety. 2. Ischemic cardiomyopathy - the patient's recent ejection fraction of 35% to 40%. No signs of acute decompensation. Recommend continuing current home medications including his isosorbide. 3. Hypertension - well controlled and recommend continuing home antihypertensives. 4. Hyperlipidemia. 5. Chronic anticoagulation which is currently therapeutic for a history of LV thrombus which had resolved based on prior echo. 6. History of cerebrovascular accident without residual deficits and no new neurologic symptoms. DISPOSITION AND RECOMMENDATIONS: Recommend the patient is discharged to home with a prescription for p.r.n. oral Ativan with close followup with his primary care provider and an ENT evaluation. The patient would greatly benefit from counseling services and further attention to his severe anxiety symptoms. BABITA STARKEY [id number]/[facility] #: [id number] MILY
[2016-10-13] MEDS ORDERED: Amoxicillin/Clavulanate TAB* 875 MG PO ONE (20:24)
[2016-10-13 22:02] VITALS: BP 126/69
--- NOTE | 2016-10-14 03:06 | ED ---
Jez Donaldson Alfonso, scribed for Elicia Sims MD on 10/13/16 at 1422 . Shortness of Breath - HPI Summary HPI Summary: This patient is a 65 [facility] struggling to breath since last night. The patient points at his neck and states, with a hoarse voice , he is "struggling to breath all day and any night." The dyspnea at rest is aggravated and alleviated by nothing. He denies CP. PMHX of 3 HI and 1 CVA. He reports taking coumadin and having an INR of 2.4 last week. He quit smoking 40 years ago. Patient lives alone and is retired and recently . - History of Current Complaint Chief Complaint: EDShortnessOfBreath Hx Obtained From: Patient Onset/Duration: Sudden Onset, Lasting Hours - Since last night Timing: Constant Current Severity: Moderate Dyspnea At: Rest Aggrevating Factors: Nothing Alleviating Factors: Nothing - Allergy/Home Medications Allergies/Adverse Reactions: Allergies Allergy/AdvReac Type Severity Reaction Status Date / Time Prednisone Allergy See Comment Verified 10/02/16 16:28 PMH/Surg Hx/FS Hx/Imm Hx Endocrine/Hematology History: Reports: Hx Anticoagulant Therapy - Coumadin Denies: Hx Diabetes Cardiovascular History: Reports: Hx Angina, Hx Angioplasty, Hx Coronary Artery Disease, Hx Hypercholesterolemia, Hx Hypertension, Hx Myocardial Infarction Denies: Hx Pacemaker/ICD, Hx Valvular Heart Disease Respiratory History: Denies: Hx Asthma, Hx Chronic Obstructive Pulmonary Disease (COPD) History: Denies: Hx Dialysis Musculoskeletal History: Reports: Hx Back Problems Denies: Other Musculoskeletal History - R SHOULDER PAIN FROM PREVIOUS INJURY Sensory History: Reports: Hx Contacts or Glasses, Hx Deafness - [place] Denies: Hx Hearing Aid Opthamlomology History: Reports: Hx Contacts or Glasses Neurological History: Reports: Hx CVA Denies: Hx Dementia, Hx Seizures Psychiatric History: Denies: Hx Panic Disorder - Surgical History Surgery Procedure, Year, and Place: CABG, cardiac stents x3 Infectious Disease History: No Infectious Disease History: Denies: Traveled Outside the [place] in Last 30 Days Comment Only: Hx of Known/Suspected MRSA - negative 2014 - Family History Known Family History: Positive: Cardiac Disease - Positive for brother who had HI before age of 55. - Social History Alcohol Use: Daily Alcohol Amount: 1 drink with dinner Hx Substance Use: No Substance Use Type: Reports: None Hx Tobacco Use: Yes Smoking Status (MU): Former Smoker Review of Systems Constitutional: Negative Cardiovascular: Negative Negative: Chest Pain Positive: Shortness Of Breath Gastrointestinal: Negative Musculoskeletal: Negative Skin: Negative Neurological: Negative Psychological: Normal All Other Systems Reviewed And Are Negative: Yes Physical Exam Triage Information Reviewed: Yes Vital Signs On Initial Exam: Initial Vitals Temp Pulse Resp BP Pulse Ox 98.4 F 71 16 111/68 98 10/13/16 13:03 10/13/16 13:03 10/13/16 13:03 10/13/16 13:03 10/13/16 13:03 Vital Signs Reviewed: Yes Appearance: Positive: No Pain Distress, Well-Nourished, Ill-Appearing Skin: Positive: Warm, Dry Head/Face: Positive: Normal Head/Face Inspection Eyes: Positive: EOMI, Conjunctiva Clear ENT: Positive: Hearing grossly normal, Pharynx normal, TMs normal, Muffled/ hoarse voice, Other - leukoplakia base of right tongue, no mass noted.. Negative: Pharyngeal erythema, Nasal congestion, Nasal drainage, Tonsillar swelling, Tonsillar exudate Dental: Positive: Gross Decay/Caries @ Neck: Positive: Supple, Nontender, No Lymphadenopathy, Other: - no masses Respiratory/Lung Sounds: Positive: Clear to Auscultation, Breath Sounds Present Cardiovascular: Positive: Normal, RRR, Pulses are Symmetrical in both Upper and Lower Extremities. Negative: Murmur Abdomen Description: Positive: Nontender, Soft. Negative: Distended, Guarding Bowel Sounds: Positive: Present Musculoskeletal: Positive: Strength/ROM Intact. Negative: Edema Left, Edema Right Neurological: Positive: Sensory/Motor Intact, Alert, Oriented to Person Place, Time. Negative: Facial Droop, Focal Deficit @, Slurred Speech Psychiatric: Positive: Anxious Diagnostics - Vital Signs Vital Signs Temp Pulse Resp BP Pulse Ox 10/13/16 13:03 98.4 F 71 16 111/68 98 - Laboratory Lab Results: Lab Results 10/13/16 10/13/16 10/13/16 Range/Units 13:25 13:25 13:25 WBC 6.8 (3.5-10.8) 10^3/ul RBC 4.47 (4.0-5.4) 10^6/ul Hgb 13.2 L (14.0-18.0) g/dl Hct 40 L (42-52) % MCV 89 (80-94) fL MCH 30 (27-31) pg MCHC 33 (31-36) g/dl RDW 14 (10.5-15) % Plt Count 198 (150-450) 10^3/ul MPV 8 (7.4-10.4) um3 Neut % (Auto) 70.2 (38-83) % Lymph % (Auto) 19.0 L (25-47) % [place] % (Auto) 9.3 H (1-9) % Eos % (Auto) 0.8 (0-6) % Baso % (Auto) 0.7 (0-2) % Absolute Neuts (auto) 4.7 (1.5-7.7) 10^3/ul Absolute Lymphs (auto) 1.3 (1.0-4.8) 10^3/ul Absolute Monos (auto) 0.6 (0-0.8) 10^3/ul Absolute Eos (auto) 0.1 (0-0.6) 10^3/ul Absolute Basos (auto) 0 (0-0.2) 10^3/ul Absolute Nucleated RBC 0 10^3/ul Nucleated RBC % 0 INR (Anticoag Therapy) (0.89-1.11) APTT (26.0-36.3) seconds D-Dimer, Quantitative (Less Than 230) ng/mL ABG pH (7.35-7.45) ABG pCO2 (35-45) mmHg ABG pO2 (80-100) mmHg ABG HCO3 (19-31) mmol/L ABG O2 Saturation (95-98) % ABG Base Excess (-2.0-2.0) Sodium 132 L (133-145) mmol/L Potassium 3.9 (3.5-5.0) mmol/L Chloride 99 L (101-111) mmol/L Carbon Dioxide 28 (22-32) mmol/L Anion Gap 5 (2-11) mmol/L BUN 14 (6-24) mg/dL Creatinine 0.84 (0.67-1.17) mg/dL Est GFR ( Amer) 118.7 (>60) Est GFR (Non-Af Amer) 92.3 (>60) BUN/Creatinine Ratio 16.7 (8-20) Glucose 123 H (70-100) mg/dL Lactic Acid 1.6 (0.5-2.0) mmol/L Calcium 8.9 (8.6-10.3) mg/dL Total Bilirubin 0.50 (0.2-1.0) mg/dL AST 29 (13-39) U/L ALT 17 (7-52) U/L Alkaline Phosphatase 62 (34-104) U/L Total Creatine Kinase 87 (10-223) U/L CK-MB (CK-2) 2.4 (0.6-6.3) ng/mL Troponin I 0.00 (<0.04) ng/mL B-Natriuretic Peptide ( - 100) pg/mL Total Protein 6.6 (6.4-8.9) g/dL Albumin 3.8 (3.2-5.2) g/dL Globulin 2.8 (2-4) g/dL Albumin/Globulin Ratio 1.4 (1-3) 10/13/16 10/13/16 10/13/16 Range/Units 13:25 13:25 13:55 WBC (3.5-10.8) 10^3/ul RBC (4.0-5.4) 10^6/ul Hgb (14.0-18.0) g/dl Hct (42-52) % MCV (80-94) fL MCH (27-31) pg MCHC (31-36) g/dl RDW (10.5-15) % Plt Count (150-450) 10^3/ul MPV (7.4-10.4) um3 Neut % (Auto) (38-83) % Lymph % (Auto) (25-47) % [place] % (Auto) (1-9) % Eos % (Auto) (0-6) % Baso % (Auto) (0-2) % Absolute Neuts (auto) (1.5-7.7) 10^3/ul Absolute Lymphs (auto) (1.0-4.8) 10^3/ul Absolute Monos (auto) (0-0.8) 10^3/ul Absolute Eos (auto) (0-0.6) 10^3/ul Absolute Basos (auto) (0-0.2) 10^3/ul Absolute Nucleated RBC 10^3/ul Nucleated RBC % INR (Anticoag Therapy) 2.18 H (0.89-1.11) APTT 36.1 (26.0-36.3) seconds D-Dimer, Quantitative < 200 (Less Than 230) ng/mL ABG pH 7.49 H (7.35-7.45) ABG pCO2 33 L (35-45) mmHg ABG pO2 96 (80-100) mmHg ABG HCO3 26.6 (19-31) mmol/L ABG O2 Saturation 99.1 H (95-98) % ABG Base Excess 2.2 H (-2.0-2.0) Sodium (133-145) mmol/L Potassium (3.5-5.0) mmol/L Chloride (101-111) mmol/L Carbon Dioxide (22-32) mmol/L Anion Gap (2-11) mmol/L BUN (6-24) mg/dL Creatinine (0.67-1.17) mg/dL Est GFR ( Amer) (>60) Est GFR (Non-Af Amer) (>60) BUN/Creatinine Ratio (8-20) Glucose (70-100) mg/dL Lactic Acid (0.5-2.0) mmol/L Calcium (8.6-10.3) mg/dL Total Bilirubin (0.2-1.0) mg/dL AST (13-39) U/L ALT (7-52) U/L Alkaline Phosphatase (34-104) U/L Total Creatine Kinase (10-223) U/L CK-MB (CK-2) (0.6-6.3) ng/mL Troponin I (<0.04) ng/mL B-Natriuretic Peptide 289 H ( - 100) pg/mL Total Protein (6.4-8.9) g/dL Albumin (3.2-5.2) g/dL Globulin (2-4) g/dL Albumin/Globulin Ratio (1-3) Result Diagrams: 10/13/16 13:25 10/13/16 13:25 Lab Statement: Any lab studies that have been ordered have been reviewed, and results considered in the medical decision making process. - Radiology CXR Xray Interpretation: No Acute Changes - NO ACTIVE CARDIOPULMONARY DISEASE Radiology Interpretation Completed By: Radiologist - CT Neck CT CT Interpretation: Positive (See Comments) - 1. THERE IS INCREASED SOFT TISSUE DENSITY IN THE LEFT TONSILLAR FOSSA POSSIBLY REPRESENTING NORMAL GLANDULAR TISSUE VERSUS A MASS. RECOMMEND DIRECT CLINICAL INSPECTION. 2. PROBABLE OLD RIGHT MIDDLE CEREBRAL ARTERY INFARCT. RECOMMEND CLINICAL CORRELATION. CT Interpretation Completed By: Radiologist Chest CTA CT Interpretation: No Acute Changes - No evidence of pulmonary embolus is noted. CT Interpretation Completed By: Radiologist - EKG 1308 Cardiac Rate: NL - 61 bpm EKG Rhythm: Sinus Rhythm EKG Interpretation: Nl AV/IV CT, nl axis, inverted T waves in V1-V5, no acute changes EKG Comparison: No Significant Change - as compared with 10/03/2016 Re-Evaluation - Re-Evaluation Second Eval Re-Evaluation Time: 21:20 Change: Improved Comment: Happy and agreeable with the discharge plan. Explained grandular tissue. First Eval Re-Evaluation Time: 17:10 Change: Unchanged Comment: Patient still feels SOB. He is anxious. Does not want to go home. BP 150/78. Lungs clear. Speaks in full sentences. Course/Dx - Course Assessment/Plan: Pt is a 65 y/o M who presents to ED c/o struggling to breath, characterized as dyspnea at rest, since last night, while pointing at his neck and speaking with a hoarse voice. He denies CP. PMHX of 3 HI and 1 CVA. He reports taking coumadin and having an INR of 2.4 last week. Pt feels that he is going to if he is discharged. Consult hospitalist. Pt administered Ativan PO by hospitalist in ED and Ns IV in the course of the ED. Pt's symptoms improved with ativan. EKG reveals no acute changes as compared with 10/03/2016. CXR and Chest CTA reveal no acute findings. Neck CT reveals "1. THERE IS INCREASED SOFT TISSUE DENSITY IN THE LEFT TONSILLAR FOSSA POSSIBLY REPRESENTING NORMAL GLANDULAR TISSUE VERSUS A MASS. RECOMMEND DIRECT CLINICAL INSPECTION. 2. PROBABLE OLD RIGHT MIDDLE CEREBRAL ARTERY INFARCT. RECOMMEND CLINICAL CORRELATION." Pt will be D/C to home with Dx of dyspnea and glandular tissue with Rx for Augmentin and Ativan as well as a follow up with Dr. Miguel and his PCP and referral for supportive counseling. - Diagnoses Differential Diagnosis/HQI/PQRI: Positive: CHF, COPD Exacerbation, HI, Pneumonia , Pulmonary Embolism, Other - neck mass, Provider Diagnoses: Dyspnea, glandular tissue - Physician Notifications Discussed Care of Patient With: Luca Lopez Time Discussed With Above Provider: 15:46 Instructed by Provider To: Other - He reports the patient can have contrast for the CT soft tissues of the neck after the CTA. Spoke with Dr. Miguel at 1825 and requests patient follows up with him as an out patient on Sunday10/16/16 and to start him on abx. Steroids not necessary as pt is listed as allergic, and pt is anxious, and there is no airway compromise or hypoxia. - Critical Care Time Critical Care Time: 30-74 min Discharge - Discharge Plan Condition: Stable Disposition: HOME Prescriptions: Amoxicillin/Clavulanate TAB* [Augmentin TAB 875*] 875 mg PO BID #20 tab LORazepam TAB(*) [Ativan 0.5 MG TAB (*)] 0.5 mg PO Q6H PRN #40 tab MDD 4 tabs PRN Reason: anxiety/panic Patient Education Materials: Dyspnea (ED), Lorazepam (By mouth), Amoxicillin/ Clavulanate Potassium (By mouth) Referrals: Boy Miguel MD [Medical Doctor] - 3 Days (Call for an appointment for Sunday10/16/16. We spoke to Dr. Miguel construction services technician and he will see you on Sunday. ) Gabo Ledbetter MD [Primary Care Provider] - Additional Instructions: Activity: As directed, no restrictions We have given you a copy of your CT reports and your labs. Instructions: 1. Call [facility] [phone] ([address] [place]) for a counseling appointment to address anxiety/panic 2. Please take the Ativan as directed to help control anxiety 3. Please call ENT as listed above for an appointment to evaluate your throat further. Dr. Miguel will look at your vocal cords directly. 4. Take the augmentin antibiotic twice a day as directed. The documentation as recorded by the Jez solomon Alfonso accurately reflects the service I personally performed and the decisions made by me, Elicia Sims MD.
== END 2016-10-13 22:02 | disposition home or self-care (01) ==
LOC: ED 12:53
DX: R06.00 Dyspnea, unspecified (principal); R06.02 Shortness of breath; Z87.891 Personal history of nicotine dependence; Z79.01 Long term (current) use of anticoagulants; I25.2 Old myocardial infarction; Z86.73 Personal history of transient ischemic attack (TIA), and cerebral infarction without residual deficits
CPT/HCPCS: 36415; 36600; 70491; 71010; 71275; 80053; 82550; 82553; 82803; 83605; 83880; 84484; 85025; 85379; 85610; 85730; 86140; 87040; 93005; 96374; 99283; A9270-GY; Q9967

== ENCOUNTER 2017-06-02 22:22 | Emergency (ER) | payer MEDICARE ==
[2017-06-02] MEDS ORDERED: NS 0.9% 1000 ML* 1,000 ML IV ONE (22:47)
[2017-06-02] MEDS ORDERED: Aspirin EC Low Dose* 81 MG TAB.EC PO ONE (22:54)
[2017-06-02] MEDS ORDERED: Albuterol/Ipratropium NEB.SOL* Albuterol 2.5 MG/Ipratropium 0.5 MG 3 ML INH ONE (22:54)
[2017-06-02 23:51] LABS: ABS Basophils 0.1 10^3/ul (0-0.2); ABS Eosinophils 0.1 10^3/ul (0-0.6); ABS Lymphocytes 1.4 10^3/ul (1.0-4.8); ABS Monocytes 0.9 10^3/ul (0-0.8); ABS Neutrophils 5.5 10^3/ul (1.5-7.7); ABS Nucleated RBC 0 10^3/ul; Eosinophil % 1.7 % (0-6); Hematocrit 40 % (42-52); Hemoglobin 13.7 g/dl (14.0-18.0); Lymphocyte % 17.4 % (25-47); Mean Corpuscular HGB Conc 34 g/dl (31-36); Mean Corpuscular Hemoglobin 31 pg (27-31); Mean Corpuscular Volume 90 fL (80-94); Mean Platelet Volume 8 um3 (7.4-10.4); Nucleated Red Blood Cells % 0; Platelet Count 222 10^3/ul (150-450); Red Cell Distribution Width 14 % (10.5-15); White Blood Count 7.9 10^3/ul (3.5-10.8)
[2017-06-03 00:06] LABS: INR 0.94 (0.77-1.02)
--- NOTE | 2017-06-03 05:34 | ED ---
Venancio Donaldson Tecjoon, scribed for Tesfaye Hare MD on 06/02/17 at 2258 . 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 Patient states that he woke up from sleep to go to the bathroom when chest pain occurred and he became very SOB. Patient attempted to treat himself with a baby aspirin and his own nitro prior to EMS arrival. Patient states his pain is mostly gone, but the SOB is still present. Symptoms aggravated by nothing. Symptoms alleviated by nothing. Patient additionally reports abd pain, chest pain, nasal congestion with green mucus. Patient denies fever, sinus pain - History of Current Complaint Chief Complaint: EDChestPainROMI Time Seen by Provider: 06/02/17 22:47 Hx Obtained From: Patient Onset/Duration: Sudden Onset, Lasting Hours, Still Present Timing: Constant Current Severity: Mild Aggrevating Factors: Nothing Alleviating Factors: Nothing Associated Signs & Symptoms: Negative - fever, sinus pain, Chest Pain Unrelated to Cough, Nasal Congestion - Allergy/Home Medications Allergies/Adverse Reactions: Allergies Allergy/AdvReac Type Severity Reaction Status Date / Time Prednisone Allergy See Comment Verified 10/02/16 16:28 PMH/Surg Hx/FS Hx/Imm Hx Previously Healthy: No Endocrine/Hematology History: Reports: Hx Anticoagulant Therapy - Coumadin Denies: Hx Diabetes Cardiovascular History: Reports: Hx Angina, Hx Angioplasty, Hx Coronary Artery Disease, Hx Hypercholesterolemia, Hx Hypertension, Hx Myocardial Infarction, Other Cardiovascular Problems/Disorders - CAD Denies: Hx Pacemaker/ICD, Hx Valvular Heart Disease Respiratory History: Denies: Hx Asthma, Hx Chronic Obstructive Pulmonary Disease (COPD) History: Denies: Hx Dialysis Musculoskeletal History: Reports: Hx Back Problems Denies: Other Musculoskeletal History - R SHOULDER PAIN FROM PREVIOUS INJURY Sensory History: Reports: Hx Contacts or Glasses, Hx Deafness - [place] Denies: Hx Hearing Aid Opthamlomology History: Reports: Hx Contacts or Glasses Neurological History: Reports: Hx CVA Denies: Hx Dementia, Hx Seizures Psychiatric History: Denies: Hx Panic Disorder - Surgical History Surgery Procedure, Year, and Place: CABG, cardiac stents x3 - Immunization History Date of Tetanus Vaccine: unk Date of Influenza Vaccine: unk Infectious Disease History: No Infectious Disease History: Denies: Traveled Outside the [place] in Last 30 Days Comment Only: Hx of Known/Suspected MRSA - negative 2014 - Family History Known Family History: Positive: Cardiac Disease - Positive for brother who had NV before age of 55. - Social History Alcohol Use: Daily Alcohol Amount: 1 drink with dinner Hx Substance Use: No Substance Use Type: Reports: None Hx Tobacco Use: Yes Smoking Status (MU): Former Smoker Review of Systems Negative: Fever ENT: Negative - sinus pain, Other - nasal congestion with green mucus Positive: Chest Pain Positive: Shortness Of Breath Positive: Abdominal Pain All Other Systems Reviewed And Are Negative: Yes Physical Exam - Summary Physical Exam Summary: Appearance: Well appearing, no pain distress Skin: warm, dry, reflects adequate perfusion Head/face: normal Eyes: EOMI, JACINDA ENT: nasal congestion Neck: supple, non-tender Respiratory: CTA, breath sounds present, lungs clear Cardiovascular: RRR, pulses symmetrical Abdomen: non-tender, soft Bowel: present Musculoskeletal: normal, strength/ROM intact Neuro: normal, sensory motor intact, A&Ox3 Triage Information Reviewed: Yes Vital Signs On Initial Exam: Initial Vitals Temp Pulse Resp BP Pulse Ox 98.7 F 72 19 113/77 99 06/02/17 22:28 06/02/17 22:28 06/02/17 22:28 06/02/17 22:28 06/02/17 22:28 Vital Signs Reviewed: Yes Diagnostics - Vital Signs Vital Signs Temp Pulse Resp BP Pulse Ox 06/02/17 22:31 13 06/02/17 22:30 113/77 06/02/17 22:28 98.7 F 72 19 113/77 99 - Laboratory Lab Results: Lab Results 06/02/17 06/02/17 06/02/17 Range/Units 23:35 23:35 23:35 WBC 7.9 (3.5-10.8) 10^3/ul RBC 4.50 (4.0-5.4) 10^6/ul Hgb 13.7 L (14.0-18.0) g/dl Hct 40 L (42-52) % MCV 90 (80-94) fL MCH 31 (27-31) pg MCHC 34 (31-36) g/dl RDW 14 (10.5-15) % Plt Count 222 (150-450) 10^3/ul MPV 8 (7.4-10.4) um3 Neut % (Auto) 68.5 (38-83) % Lymph % (Auto) 17.4 L (25-47) % [place] % (Auto) 11.4 H (1-9) % Eos % (Auto) 1.7 (0-6) % Baso % (Auto) 1.0 (0-2) % Absolute Neuts (auto) 5.5 (1.5-7.7) 10^3/ul Absolute Lymphs (auto) 1.4 (1.0-4.8) 10^3/ul Absolute Monos (auto) 0.9 H (0-0.8) 10^3/ul Absolute Eos (auto) 0.1 (0-0.6) 10^3/ul Absolute Basos (auto) 0.1 (0-0.2) 10^3/ul Absolute Nucleated RBC 0 10^3/ul Nucleated RBC % 0 INR (Anticoag Therapy) (0.77-1.02) Sodium 134 (133-145) mmol/L Potassium 3.8 (3.5-5.0) mmol/L Chloride 103 (101-111) mmol/L Carbon Dioxide 24 (22-32) mmol/L Anion Gap 7 (2-11) mmol/L BUN 19 (6-24) mg/dL Creatinine 0.90 (0.67-1.17) mg/dL Est GFR ( Amer) 109.3 (>60) Est GFR (Non-Af Amer) 85.0 (>60) BUN/Creatinine Ratio 21.1 H (8-20) Glucose 107 H (70-100) mg/dL Lactic Acid (0.5-2.0) mmol/L Calcium 9.0 (8.6-10.3) mg/dL Total Bilirubin 0.50 (0.2-1.0) mg/dL AST 20 (13-39) U/L ALT 14 (7-52) U/L Alkaline Phosphatase 73 (34-104) U/L Troponin I 0.01 (<0.04) ng/mL B-Natriuretic Peptide 37 ( - 100) pg/mL Total Protein 6.9 (6.4-8.9) g/dL Albumin 3.7 (3.2-5.2) g/dL Globulin 3.2 (2-4) g/dL Albumin/Globulin Ratio 1.2 (1-3) Influenza A (Rapid) (Negative) Influenza B (Rapid) (Negative) 06/02/17 06/02/17 06/02/17 Range/Units 23:35 23:35 23:55 WBC (3.5-10.8) 10^3/ul RBC (4.0-5.4) 10^6/ul Hgb (14.0-18.0) g/dl Hct (42-52) % MCV (80-94) fL MCH (27-31) pg MCHC (31-36) g/dl RDW (10.5-15) % Plt Count (150-450) 10^3/ul MPV (7.4-10.4) um3 Neut % (Auto) (38-83) % Lymph % (Auto) (25-47) % [place] % (Auto) (1-9) % Eos % (Auto) (0-6) % Baso % (Auto) (0-2) % Absolute Neuts (auto) (1.5-7.7) 10^3/ul Absolute Lymphs (auto) (1.0-4.8) 10^3/ul Absolute Monos (auto) (0-0.8) 10^3/ul Absolute Eos (auto) (0-0.6) 10^3/ul Absolute Basos (auto) (0-0.2) 10^3/ul Absolute Nucleated RBC 10^3/ul Nucleated RBC % INR (Anticoag Therapy) 0.94 (0.77-1.02) Sodium (133-145) mmol/L Potassium (3.5-5.0) mmol/L Chloride (101-111) mmol/L Carbon Dioxide (22-32) mmol/L Anion Gap (2-11) mmol/L BUN (6-24) mg/dL Creatinine (0.67-1.17) mg/dL Est GFR ( Amer) (>60) Est GFR (Non-Af Amer) (>60) BUN/Creatinine Ratio (8-20) Glucose (70-100) mg/dL Lactic Acid 1.0 (0.5-2.0) mmol/L Calcium (8.6-10.3) mg/dL Total Bilirubin (0.2-1.0) mg/dL AST (13-39) U/L ALT (7-52) U/L Alkaline Phosphatase (34-104) U/L Troponin I (<0.04) ng/mL B-Natriuretic Peptide ( - 100) pg/mL Total Protein (6.4-8.9) g/dL Albumin (3.2-5.2) g/dL Globulin (2-4) g/dL Albumin/Globulin Ratio (1-3) Influenza A (Rapid) Negative (Negative) Influenza B (Rapid) Negative (Negative) Result Diagrams: 06/02/17 23:35 06/02/17 23:35 Lab Statement: Any lab studies that have been ordered have been reviewed, and results considered in the medical decision making process. - Radiology CXR Xray Interpretation: No Acute Changes - CXR reveals, per ED Physician, IMPRESSION: No Acute Pulmonary findings. Radiology Interpretation Completed By: ED Physician - EKG 2226 Cardiac Rate: NL EKG Rhythm: Sinus Rhythm - 72 BPM EKG Interpretation: NSR (72 BPM), Normal axis, intervals, non-specific ST. Re-Evaluation - Re-Evaluation First Eval Re-Evaluation Time: 00:22 Change: Improved Comment: Patient is feeling much better, benefit from breathing treatment Course/Dx - Course Course Of Treatment: pt with cough, hx of smoking in past. Lingering sx. Congestion. -Flu. Neg trop, ddimer and ECG. Improved with breathing tx. Allergy to prednisone so none given here. Removed from Rx. Tx with syx control, inhaler , antibiotics. - Diagnoses Differential Diagnosis/HQI/PQRI: Positive: Asthma, Bronchitis, CHF, COPD Exacerbation, [place], Other - flu Provider Diagnoses: COPD exacerbation Discharge - Discharge Plan Condition: Good Disposition: HOME Prescriptions: Albuterol HFA INHALER* [Ventolin HFA Inhaler*] 2 puff INH Q4H PRN #1 mdi PRN Reason: Shortness Of Breath Azithromyxin ASHVIN (NF) [Z-Ashvin (Zithromax) 250 mg tabs #6] 2 tab PO .TODAY, THEN 1 DAILY #6 tab Benzonatate [TESSALON 200 MG CAP] 200 mg PO TID PRN #20 cap PRN Reason: Cough Pseudoephedrine-Guaifenesin [Mucinex D 60-600 mg] 1 tab PO BID #10 tab Patient Education Materials: Acute Bronchitis (ED) Referrals: Gabo Ledbetter MD [Primary Care Provider] - Additional Instructions: Drink plenty of fluids. Use humidifier while sleeping. Return with high fever, trouble breathing, worse or other concerns as discussed. Use inhaler every 4hrs until well. The documentation as recorded by the Venancio solomon Tecjoon accurately reflects the service I personally performed and the decisions made by , Tesfaye Hare MD.
[2017-06-03 05:37] VITALS: BP 125/64
--- NOTE | 2017-06-03 07:47 | RAD ---
INDICATION: Chest pain. Short of breath COMPARISON: October 13, 2016 TECHNIQUE: PA and lateral dual-energy views were obtained. FINDINGS: Bones/Soft Tissues: There are no acute bony findings. There is sternotomy Cardiomediastinal: The cardiomediastinal silhouette is normal. Lungs: There are no infiltrates. Pleura: There are no pleural effusions. Other: None IMPRESSION: NO ACTIVE DISEASE.
== END 2017-06-03 00:55 | disposition home or self-care (01) ==
LOC: ED 22:22
DX: J44.1 Chronic obstructive pulmonary disease with (acute) exacerbation (principal); R07.9 Chest pain, unspecified; R06.02 Shortness of breath; R10.9 Unspecified abdominal pain; Z87.891 Personal history of nicotine dependence
CPT/HCPCS: 36415; 71046; 80053; 83605; 83880; 84484; 85025; 85610; 87040; 87502; 93005; 94640; 99284; A9270-GY

== ENCOUNTER 2018-07-10 14:15 | Emergency (ER) | payer MEDICARE ==
--- NOTE | 2018-07-10 14:35 | ED ---
HPI Chest Pain - HPI Summary HPI Summary: Patient is a 67 y/o male who presents to the ED c/o CP. He had a CVA 4 weeks ago and ever since has been hard of hearing, off-balance, and fatigued. For the past 2-3 days hes had right lateral chest pain that radiates to his right upper back, and SOB on exertion. Patient describes the pain as constant and right lung pain. He denies any cough, fever, rhinorrhea, abdominal pain, ZHAO, or arm pain. His pain is currently rated a 2/10 in severity, and nothing makes the pain better or worse. PMHx HTN, HLD, NV x3, CAD, cardiac stents x3. He takes Metoprolol, Enalapril, Isosorbide, and daily ASA. Pt has taken ASA this morning. Patient is a former smoker. Significant FHx for CAD. He is a patient of Dr. Alvarado. - History of Current Complaint Chief Complaint: EDChestWallPain Time Seen by Provider: 07/10/18 14:27 Hx Obtained From: Patient Onset/Duration: Started Days Ago - 2-3, Still Present Timing: Constant Current Severity: Mild Pain Intensity: 2 Pain Scale Used: 0-10 Numeric Chest Pain Location: Right Lateral Chest Pain Radiates: Yes Chest Pain Radiates To:: Back Aggravating Factor(s): Nothing Alleviating Factor(s): Nothing Associated Signs and Symptoms: Positive: Chest Pain, Shortness of Breath, Back Pain. Negative: Cough Related History: Similar Episode/Dx as: - NV x3 - Additional Pertinent History Primary Care Physician: JANIA - Allergy/Home Medications Allergies/Adverse Reactions: Allergies Allergy/AdvReac Type Severity Reaction Status Date / Time prednisone Allergy Hypertensio Verified 07/10/18 14:25 n Home Medications: Home Medications Atorvastatin* [Lipitor*] 80 mg PO DAILY 07/10/18 [History Confirmed 07/10/18] Clopidogrel TAB* [Plavix TAB*] 75 mg PO DAILY 07/10/18 [History Confirmed ] Enalapril(NF) [Enalapril (NF)] 10 mg PO BID 07/10/18 [History Confirmed 07/10/18 ] Nitroglycerin TAB 0.4 MG* 0.4 mg SL Q5M PRN 07/10/18 [History Confirmed 07/10/18 ] diPHENhydraMINE PO* [Benadryl PO 25 MG TAB*] 25 mg PO BEDTIME PRN 07/10/18 [ History Confirmed 07/10/18] tiZANidine TAB* [Zanaflex TAB*] 2 mg PO TID 07/10/18 [History Confirmed 07/10/18 ] PMH/Surg Hx/FS Hx/Imm Hx Endocrine/Hematology History: Reports: Hx Anticoagulant Therapy - Coumadin Denies: Hx Diabetes Cardiovascular History: Reports: Hx Angina, Hx Angioplasty, Hx Coronary Artery Disease, Hx Hypercholesterolemia, Hx Hypertension, Hx Myocardial Infarction - x3 Denies: Hx Pacemaker/ICD, Hx Valvular Heart Disease Respiratory History: Denies: Hx Asthma, Hx Chronic Obstructive Pulmonary Disease (COPD) History: Denies: Hx Dialysis Musculoskeletal History: Reports: Hx Back Problems Denies: Other Musculoskeletal History - R SHOULDER PAIN FROM PREVIOUS INJURY Sensory History: Reports: Hx Contacts or Glasses, Hx Deafness - [place] Denies: Hx Hearing Aid Opthamlomology History: Reports: Hx Contacts or Glasses Neurological History: Reports: Hx CVA Denies: Hx Dementia, Hx Seizures Psychiatric History: Denies: Hx Panic Disorder - Surgical History Surgery Procedure, Year, and Place: CABG, cardiac stents x3 - Immunization History Date of Tetanus Vaccine: unk Date of Influenza Vaccine: unk Infectious Disease History: No Infectious Disease History: Denies: Traveled Outside the [place] in Last 30 Days Comment Only: Hx of Known/Suspected MRSA - negative 2014 - Family History Known Family History: Positive: Cardiac Disease - Positive for brother who had NV before age of 55. - Social History Alcohol Use: Daily Alcohol Amount: 1 drink with dinner Hx Substance Use: No Substance Use Type: Reports: None Hx Tobacco Use: Yes Smoking Status (MU): Former Smoker Review of Systems Negative: Fever Negative: Nasal Discharge Positive: Chest Pain - right-sided Positive: Shortness Of Breath - exertion. Negative: Cough Negative: Abdominal Pain Positive: Myalgia - back pain. Negative: Other - arm pain Negative: Headache - 11 All Other Systems Reviewed And Are Negative: Yes Physical Exam - Summary Physical Exam Summary: Appearance: Well appearing, no pain distress Skin: warm, dry, reflects adequate perfusion Head/face: normal Eyes: EOMI, JACINDA ENT: mucous membranes moist Neck: supple, non-tender Respiratory: CTA, breath sounds present Cardiovascular: RRR, pulses symmetrical, no LE edema Abdomen: non-tender, soft, sternotomy scar Bowel Sounds: present Musculoskeletal: normal, strength/ROM intact Neuro: normal, sensory motor intact, A&Ox3 Triage Information Reviewed: Yes Vital Signs On Initial Exam: Initial Vitals Temp Pulse Resp BP Pulse Ox 98.7 F 65 16 138/78 100 07/10/18 14:17 07/10/18 14:17 07/10/18 14:17 07/10/18 14:17 07/10/18 14:17 Vital Signs Reviewed: Yes Diagnostics - Vital Signs Vital Signs Temp Pulse Resp BP Pulse Ox 07/10/18 14:17 98.7 F 65 16 138/78 100 - Laboratory Result Diagrams: 07/10/18 14:49 07/10/18 14:49 Lab Statement: Any lab studies that have been ordered have been reviewed, and results considered in the medical decision making process. - Radiology CXR Radiology Interpretation Completed By: Radiologist Summary of Radiographic Findings: NO EVIDENCE FOR ACUTE DISEASE. ED physician reviewed radiology report. - EKG 14:32 Cardiac Rate: Bradycardia - 56 bpm EKG Rhythm: Sinus Bradycardia ST Segment: Non-Specific Summary of EKG Findings: Nl axis, nl intervals Chest Pain Course/Dx - Course Course Of Treatment: Nurse's notes reviewed. Patient is 1 month out from [facility] where he lost his hearing and has known cardiac disease. He's had continuous pain in the area near his right shoulder both anterior and posterior for 3 days. This is unremitting. He's had occasional shortness of breath. He does not feel that way now nor is he dyspneic with exertion and walking in the ER. His EKG, laboratories are all benign today including d-dimer. He will follow closely with his primary care physician. - Chest Pain Differential Diagnosis/HQI/PQRI: Acute NV, ACS, CHF, GI Disease, Lower Respiratory Infection, Pulmonary Edema, Pulmonary Embolism - Diagnoses Provider Diagnoses: Atypical chest pain, Physical deconditioning, CAD (coronary artery disease), Acquired deafness of both ears Discharge - Sign-Out/Discharge Documenting (check all that apply): Patient Departure - Discharge Patient Received Moderate/Deep Sedation with Procedure: No - Discharge Plan Condition: Improved Disposition: HOME Patient Education Materials: Chest Pain (ED) Referrals: Gabo Ledbetter MD [Primary Care Provider] - Additional Instructions: Stay well-hydrated. Tylenol, ibuprofen as needed for discomfort. Your doctor can get you started on cardiac rehabilitation. There is no pneumonia, blood clot in the lungs or cardiac issue at present. Call your doctor today to schedule prompt follow-up. Return if worse, new symptoms or other concerns. - Billing Disposition and Condition Condition: IMPROVED Disposition: Home - Attestation Statements Document Initiated by Migdaliae: Yes Documenting Scribe: Nina Casarez Provider For Whom Aracelis is Documenting (Include Credential): Tesfaye Hare MD Scribe Attestation: Nina Donaldson, scribed for Tesfaye Hare MD on 07/10/18 at 1556. Scribe Documentation Reviewed: Yes Provider Attestation: The documentation as recorded by the Nina solomon accurately reflects the service I personally performed and the decisions made by Tesfaye ferro MD Status of Scribe Document: Viewed
--- OUTSIDE RECORDS SUMMARY | 2018-07-10 15:01 | XMS REPORT ---
:1950 Author Organization [facility] Address [address] [place] [address] Care Team Providers Name Role Phone Varghese Regan Unavailable Unavailable PROBLEMS Type Condition ICD9-CM SER94-MV Onset Condition SNOMED Code Code Code Dates Status Problem Cerebrovascular I63.411 Active 308238399 accident (CVA) due to embolism of right middle cerebral artery Problem Neural foraminal M99.81 Active 719727686978 stenosis of cervical spine Problem Other incomplete S14.152S Active 314698577 lesion at C2 level of cervical spinal cord, sequela Problem Peripheral artery I73.9 Active 222177995 disease Problem Anxiety F41.9 Active 18017807 Problem Left ventricular I51.3 Active 96072167 thrombus without HI Problem Primary M19.012 Active 23930011 osteoarthritis of left shoulder Problem Ischemic I25.5 Active 724205770 cardiomyopathy Problem Adjustment disorder F43.23 Active 97302354 with mixed anxiety and depressed mood Problem Essential (primary) I10 Active 09678776 hypertension Problem Mixed E78.2 Active 163404656 hyperlipidemia Problem 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 Active [id number] heart disease of [place] coronary artery without angina pectoris ALLERGIES No Information ENCOUNTERS Encounter Location Date Diagnosis [facility] [address] Aug, [place] [address] [facility] [address] Aug, [place] [address] Jun, [place] [address] [facility] [address] Jun, [place] [address] [facility] [address] May, [place] [address] of [place] coronary artery without angina pectoris I25.10 [place] [facility] Health [facility] [address] May, [place] [address] [place] [address] May, Acute [place] [address] without sciatica M54.5 ; Screening for prostate cancer Z12.5 ; Screening for colon cancer Z12.11 ; Ischemic cardiomyopathy I25.5 ; Screening for HIV without presence of risk factors Z11.4 ; Screening for diabetes mellitus Z13.1 ; Essential (primary) hypertension I10 ; Overweight (BMI 25.0-29.9) E66.3 ; BMI 26.0-26.9,adult Z68.26 ; Peripheral artery disease I73.9 and Encounter for immunization Z23 [place] [address] May, [place] [address] [place] [address] Apr, [place] [address] I73.9 [place] [address] Mar, [place] [address] [place] [address] Feb, [place] [address] [place] [address] Feb, [place] [address] of [place] coronary artery without angina pectoris I25.10 [place] [address] Feb, [place] [address] [place] [address] Jan, [place] [address] [place] [address] Jan, [place] [address] I73.9 [place] [address] Jan, [place] [address] [place] [address] Dec, [place] [address] [place] [address] Dec, [place] [address] [place] [address] Dec, Bronchitis J40 [place] [address] [place] [facility] Health [facility] [address] Dec, [place] [address] [place] [facility] Health [facility] [address] Dec, Acute nasopharyngitis J00 [place] [address] [place] [facility] Health [facility] [address] Dec, [place] [address] I73.9 Facilitated Enrollment UNKNOWN Nov, - [place] [address] [facility] Nov, Atherosclerotic heart disease [place] of [place] coronary artery [address] without angina pectoris I25.10 [place] [address] Nov, [place] [address] [facility] [address] Oct, [place] [address] Case Management [address] [place] Oct, [place] [address] [facility] [address] Oct, [place] [address] I73.9 [facility] [address] Oct, [place] [address] [facility] [address] Oct, Essential (primary) [place] [address] hypertension I10 [place] [address] Oct, Essential (primary) [place] [address] hypertension I10 [place] [address] September, [place] [address] shoulder M19.012 and Peripheral artery disease I73.9 [place] [address] Aug, Essential (primary) [place] [address] hypertension I10 [place] [address] Aug, [place] [address] [place] [address] Aug, [place] [address] of [place] coronary artery without angina pectoris I25.10 and Essential (primary) hypertension I10 [place] [address] Aug, [place] [address] [place] [address] Aug, [place] [address] I73.9 ; Restrictive airway disease J98.4 ; Chronic hoarseness R49.0 and Left ventricular thrombus without HI I51.3 [facility] [address] Aug, [place] [address] [place] [address] Aug, [place] [address] [place] [address] [facility] Aug, Bilateral hearing loss, [place] unspecified hearing loss type [address] H91.93 [facility] [address] Jul, [place] [address] [place] [address] Jul, [place] [address] I73.9 [place] [address] [place] Jul, [place] [address] [place] [address] [place] Jul, [place] [address] [place] Jul, [place] [address] [place] Jul, [place] [address] [place] Jul, [place] [address] [place] [address] [place] Jun, Right leg claudication I73.9 ; [place] [address] Left arm numbness R20.0 ; Mixed hyperlipidemia E78.2 and Encounter for immunization Z23 [place] [address] [place] Jun, Mixed hyperlipidemia E78.2 [place] [address] [place] [address] [place] Jun, [place] [address] [place] [address] [place] Jun, Essential (primary) [place] [address] hypertension I10 [place] [address] [place] Jun, Essential (primary) [place] [address] hypertension I10 [place] [address] [place] May, Stomach pain R10.9 [place] [address] right leg M79.604 [place] [address] [place] May, [place] [address] [place] [address] [place] May, [place] [address] [place] [address] [place] May, [place] [address] May, [place] [address] of [place] coronary artery without angina pectoris I25.[address] May, [place] [address] [place] [address] [place] May, Stomach pain R10.9 [place] [address] stools R19.5 [place] [address] [place] May, [place] [address] Apr, [place] [address] Facilitated Enrollment UNKNOWN Apr, - [place] [address] [place] Apr, Mixed hyperlipidemia E78.2 [place] [address] [place] [address] [place] Mar, [place] [address] [place] [address] [place] Mar, [place] [address] Mar, [place] [address] M79.661 and Pain in left shoulder M25.512 [place] [address] [place] Mar, [place] [address] [place] [address] [place] Feb, Encounter [place] [address] test for low risk patient Z11.59 [place] [address] [place] Feb, [place] [address] of [place] coronary artery without angina pectoris I25.10 ; Anxiety F41.9 ; Essential (primary) hypertension I10 ; Mixed hyperlipidemia E78.2 and Need for hepatitis C screening test Z11.59 [facility] [address] [place] [address] Feb, [place] [address] Feb, [place] [address] [facility] [address] [place] [address] Feb, [place] [address] Feb, [place] [address] Feb, [place] [address] Feb, [place] [address] [place] [address] Feb, [place] [address] [facility] [address] [place] [address] Jan, [place] [address] [place] [address] Jan, [place] [address] [place] [address] [place] Jan, [place] [address] [place] [address] [place] Dec, [place] [address] Dec, [place] [address] [place] [address] [place] Dec, Adjust[place] [address] anxiety and depressed mood F43.23 ; Cerebrovascular accident (CVA) due to embolism of right middle cerebral artery I63.411 and Encounter for screening colonoscopy for [id number] patient Z12.[address] Dec, [place] [address] Facilitated Enrollment UNKNOWN Dec, - [place] [address] Dec, Adjustment disorder with mixed [place] anxiety and depressed mood [address] F43.[address] Dec, Adjust[place] [address] anxiety and depressed mood F43.23 [place] [address] [place] Nov, Essential ([place]) [place] [address] hypertension I10 [address] Nov, [place] [address] Nov, Cerebrovascular accident ( CVA) [place] due to embolism of right [address] middle cerebral artery I63.[address] Nov, Adjustment disorder with mixed [place] anxiety and depressed mood [address] F43.[address] Nov, Adjust[place] [address] anxiety and depressed mood F43.[address] Nov, [place] [address] [facility] Nov, [facility] [place] [address] Nov, Anxiety F41.9 [place] [address] hoarseness R49.[address] Nov, [place] [address] Nov, [place] [address] Nov, Adjust[place] [address] anxiety and depressed mood F43.[address] Nov, Adjustment disorder with mixed [place] anxiety and depressed mood [address] F43.23 [place] [address] [place] Nov, Anxiety F41.9 [place] [address] Nov, [place] [address] Facilitated Enrollment [address] [place] Nov, - [place] [address] [place] [address] [place] Oct, [place] [address] Facilitated Enrollment UNKNOWN Oct, - [place] [address] [place] Oct, Health [place] [address] Oct, Adjustment disorder with mixed [place] anxiety and depressed mood [address] F43.23 [place] [facility] [address] Oct, Adjust[place] [address] anxiety and depressed mood F43.23 [place] [facility] Health [address] Oct, [place] [address] [place] [facility] Health [address] Oct, [place] [address] [facility] Health [address] [place] Oct, Anxiety F41.9 [place] [address] [place] Oct, [place] [address] Facilitated Enrollment UNKNOWN Oct, - [place] [facility] Health [address] Oct, Anxiety F41.9 [place] [address] midline low back pain without sciatica M54.[address] Oct, Adjustment disorder with mixed [place] anxiety and depressed mood [address] F43.[address] Oct, Adjustment disorder with mixed [place] anxiety and depressed mood [address] F43.23 [place] [facility] Health [address] Oct, [place] [address] [place] [facility] Health [address] Oct, [place] [address] [place] [facility] Health [address] Oct, [place] [address] [place] [facility] Health [address] Oct, [place] [address] [place] [facility] Health [address] Oct, Anxiety F41.9 [place] [address] [place] [address] [place] Oct, Health [place] [address] [place] [facility] Health [address] Oct, [place] [address] [place] [facility] Health [address] Oct, Anxiety F41.9 [place] [address] Temporomandibular joint dysfunction M26.609 [facility] [address] Oct, [place] [address] [facility] [address] [place] Oct, [place] [address] [place] [address] [place] Oct, Restrict[place] [address] J98.4 [place] [facility] [address] September, [place] [address] [facility] [address] [place] September, [place] [address] [facility] [address] [place] September, [place] [address] September, [place] [address] [facility] [address] [place] September, Thrush B37.0 [place] [address] [place] [address] [place] September, [place] [address] E78.00 [place] [address] [place] September, [place] [address] without HI I51.3 [place] [address] [place] September, [place] [address] [place] [address] [place] September, [place] [address] September, Pure hypercholesterolemia [place], [place] [address] E78.00 [place] [address] [place] September, [place] [address] September, Health [place] [address] [place] [address] [place] September, [place] [address] J98.4 ; Thrush B37.0 and Pure hypercholesterolemia E78.00 [place] [address] September, [place] [address] [place] [address] [place] September, Cerebrovascular accident ([place]) [place] [address] due to embolism of right middle cerebral artery I63.411 ; Essential hypertension I10 ; Left ventricular thrombus without HI I51.3 and Thrush B37.0 [place] [address] September, [place] [address] [place] [address] Aug, [place] [address] Aug, [place] [address] [place] [address] [place] Aug, [place] [address] Aug, [place] [address] [place] [address] [place] Aug, Neural [place] [address] cervical spine M99.81 ; Scoliosis, unspecified scoliosis type, unspecified spinal region M41.9 ; Other incomplete lesion at C2 level of cervical spinal cord, sequela S14.152S and Essential hypertension I10 [address] Aug, [place] [address] [place] [address] Aug, [place] [address] [place] [address] [place] Jul, Essential hypertension I10 ; [place] [address] CAD (coronary artery disease) 414.00 ; Gastroesophageal reflux disease without esophagitis K21.9 and Prostate cancer screening Z12.5 [place] [address] [place] Jul, Essential hypertension I10 ; [place] [address] CAD (coronary artery disease) 414.00 and Gastroesophageal reflux disease without esophagitis K21.9 [place] [address] [place] Feb, [place] [address] [place] [address] [place] Feb, [place] [address] [place] [address] [place] Feb, Essential hypertension I10 ; [place] [address] Coronary artery disease involving coronary bypass graft of [place] heart with angina pectoris I25.709 and Other chest pain R07.89 [place] [address] [place] Nov, Pharyngitis 462 [place] [address] [place] [address] [place] Nov, HTN (hypertension) 401.9 ; [place] [address] (coronary artery disease) 414.00 ; Psoriasis 696.1 ; Neck pain 723.1 and Screening for colon cancer V76.51 [place] [address] [place] Oct, Pharyngitis [address] [place] [address] IMMUNIZATIONS No Known Immunizations SOCIAL HISTORY Never Assessed REASON FOR REFERRAL FUNCTIONAL STATUS PLAN OF CARE VITAL SIGNS MEDICATIONS Medication Instructions Dosage Frequency Start End Duration Status Date Date Isosorbide Orally Once a 1 tablet 24h 90 days Active Mononitrate 30 mg day Atorvastatin Orally Once a 1 tablet 24h 90 days Active Calcium 80 MG day Benadryl Allergy Orally qhs 1 tablet Active 25 MG insomnia as needed Metoprolol Orally Once a 1/2 tablet 24h 05 Victor M, Active Succinate ER 25 day 2018 MG Nitroglycerin 0.4 Sublingual as 1 tab Q5 16 Feb, Active MG directed min x 3 2017 prn CP Plavix 75 MG Orally Once a 1 tablet 24h Active day Enalapril Maleate Orally twice 1 tablet 90 days Active 10 mg daily Tizanidine HCl 2 Orally Three 1 tablet 8h Active MG times a day as needed PROCEDURES No Known procedures RESULTS No Results REASON FOR VISIT IO Alert [facility] Admission Insurance Providers [facility] Patient Patient Patient Patient Patient Subscriber Subscriber Subscriber Group Insurance Plan Plan Plan Plan ID Relationship Address Phone Name Date of ID Name Date of No Type Insurance Insurance Insurance Coverage to Subscriber Address Phone Name Dates Medicare National [id number] Medicare self [place] [id number] [facility] 41 PPS [place] [employer] Jr [address] [facility] [id number] [facility] [phone] [facility] self L[place] [id number] [address] [phone] Weir [place] Hplex Claims Hplex Jr Exchange Dept Exchange [facility] [address] [employer] [phone] [employer] self Lc [id number] [id number] [address] [address] GG551 Weir [place] [id number] Hplex Claims Hplex Jr Exchange Dept Exchange [facility] [address] Case [phone] Case self Lc [id number] Management H[place] [address] [place] [address] Community Jr MVP [phone] MVP self Lc [id number] Medicare [id number] Medicare [place] Adv Claims Adv Jr Preferred Department Preferred [place] [address] Aetna [phone] Aetna self [place] [id number] Medicare [id number] [address] Medicare [place] [id number] Adv PPO [place] Adv PPO Jr [id number] MEDICAL (GENERAL) HISTORY Type Description Date Medical History HI 2014 Medical History CAD- Dr Smith Medical History seasonal allergies Medical History HTN Medical History psoriasis Medical History 06/2016 Right MCA Stroke Medical History Large antelateral fixed defect; EF 52% (10/2016) Medical History Adjustment disorder with mixed anxiety and depressed mood Medical History Anxiety Medical History PRE-MED NOT REQUIRED Surgical History CABG triple bypass 2013 Surgical History cardiac stent 2014 Surgical History sinus surgery Surgical History L inguinal surgery Surgical History Right MCA Stroke 06/2016 Hospitalization History see above Hospitalization History Ischemic stroke with possible permanet hearing loss 06/2018
--- OUTSIDE RECORDS SUMMARY | 2018-07-10 15:01 | XMS REPORT ---
:1950 Author Organization [facility] Address [address] [place] [address] Care Team Providers Name Role Phone Varghese Regan Unavailable Unavailable PROBLEMS Type Condition ICD9-CM [id number] Onset Condition SNOMED Code Code Code Dates Status Problem Cerebrovascular I63.411 Active 382010994 accident (CVA) due to embolism of right middle cerebral artery Problem Other incomplete S14.152S Active 291019102 lesion at C2 level of cervical spinal cord, sequela Problem Neural foraminal M99.81 Active 288248383011 stenosis of cervical spine Problem Peripheral artery I73.9 Active 830722353 disease Problem Ischemic I25.5 Active 779174113 cardiomyopathy Problem Left ventricular I51.3 Active 44586826 thrombus without GA Problem Primary M19.012 Active 34384021 osteoarthritis of left shoulder Problem Anxiety F41.9 Active 64727925 Problem Essential (primary) I10 Active 29300574 hypertension Problem Adjustment disorder F43.23 Active 85651402 with mixed anxiety and depressed mood Problem 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 Active 203343203219158 heart disease of [place] coronary artery without angina pectoris Problem Mixed E78.2 Active 685078975 hyperlipidemia ALLERGIES No Information ENCOUNTERS Encounter Location Date Diagnosis [facility] [address] Aug, [place] [address] [facility] [address] Aug, [place] [address] [place] [address] May, Atheros[place] [address] of [place] coronary artery without angina pectoris I25.10 [facility] [address] May, [place] [address] May, Acute [place] [address] without sciatica M54.5 ; Screening for prostate cancer Z12.5 ; Screening for colon cancer Z12.11 ; Ischemic cardiomyopathy I25.5 ; Screening for HIV without presence of risk factors Z11.4 ; Screening for diabetes mellitus Z13.1 ; Essential (primary) hypertension I10 ; Overweight (BMI 25.0-29.9) E66.3 ; BMI 26.0-26.9,adult Z68.26 ; Peripheral artery disease I73.9 and Encounter for immunization Z23 [place] [address] [place] May, [place] [address] [place] [address] Apr, [place] [address] [address] Mar, [place] [address] [place] [address] [place] Feb, [place] [address] Feb, [place] [address] of [place] coronary artery without angina pectoris I25.[address] [place] [address] Feb, [place] [address] [place] [address] Jan, [place] [address] [place] [address] [place] Jan, [place] [address] [address] Jan, [place] [address] [place] [address] [place] Dec, [place] [address] [place] [address] Dec, [place] [address] [place] [address] [place] Dec, Bronchitis J40 [place] [address] [place] [address] Dec, [place] [address] [place] [address] [place] Dec, Acute nasopharyngitis J00 [place] [address] Dec, [place] [address] I73.9 Facilitated Enrollment UNKNOWN Nov, - [place] [address] Nov, Atherosclerotic heart disease [place] of [place] coronary artery [address] without angina pectoris I25.10 [place] [address] Nov, [place] [address] [facility] [address] Oct, [place] [address] Case Management [address] [place] Oct, [place] [address] [facility] [address] Oct, [place] [address] I73.9 [place] [address] Oct, [place] [address] [place] [address] Oct, Essential (primary) [place] [address] hypertension I10 [place] [address] Oct, Essential (primary) [place] [address] hypertension I10 [place] [address] September, [place] [address] shoulder M19.012 and Peripheral artery disease I73.9 [place] [address] Aug, Essential (primary) [place] [address] hypertension I10 [place] [address] Aug, [place] [address] [place] [address] Aug, [place] [address] of [place] coronary artery without angina pectoris I25.10 and Essential (primary) hypertension I10 [place] [address] Aug, [place] [address] Aug, [place] [address] I73.9 ; Restrictive airway disease J98.4 ; Chronic hoarseness R49.0 and Left ventricular thrombus without GA I51.3 [place] [address] Aug, [place] [address] [place] [address] Aug, [place] [address] Aug, Bilateral hearing loss, Health [place] unspecified hearing loss type [address] H91.93 [place] [address] Jul, [place] [address] [place] [address] Jul, [place] [address] I73.9 [place] [address] Jul, [place] [address] [place] [address] Jul, [place] [address] [address] [place] Jul, [place] [address] [place] Jul, [place] [address] Jul, [facility] [place] [address] [place] [address] [place] Jun, Mixed hyperlipidemia E78.2 [place] [address] [place] [address] [place] Jun, Right leg claudication I73.9 ; [place] [address] Left arm numbness R20.0 ; Mixed hyperlipidemia E78.2 and Encounter for immunization Z23 [place] [address] [place] Jun, [place] [address] [place] [address] [place] Jun, Essential (primary) [place] [address] hypertension I10 [place] [address] [place] Jun, Essential ([place]) [place] [address] hypertension I10 [place] [address] [place] May, Stomach pain R10.9 [place] [address] right leg M79.604 [place] [address] [place] May, [place] [address] [place] [address] [place] May, [place] [address] [place] [address] [place] May, [place] [address] [place] [address] [place] May, [place] [address] of [place] coronary artery without angina pectoris I25.[address] [place] May, [place] [address] [place] [address] [place] May, Stomach pain R10.9 [place] [address] stools R19.[address] May, [place] [address] Apr, [place] [address] Facilitated Enrollment UNKNOWN Apr, - [place] [address] [place] Apr, Mixed hyperlipidemia E78.2 [place] [address] [place] [address] [place] Mar, [place] [address] Mar, [place] [address] Mar, Tenderness [place] [address] M79.661 and Pain in left shoulder M25.[address] Mar, [place] [address] Feb, Encounter [place] [address] test for low risk patient Z11.[address] Feb, [place] [address] of [place] coronary artery without angina pectoris I25.10 ; Anxiety F41.9 ; Essential (primary) hypertension I10 ; Mixed hyperlipidemia E78.2 and Need for hepatitis C screening test Z11.[address] Feb, [place] [address] Feb, [place] [address] Feb, [place] [address] Feb, [place] [address] Feb, [place] [address] Feb, [place] [address] Feb, [place] [address] Jan, [place] [address] Jan, [place] [address] Jan, [place] [address] Dec, [place] [address] Dec, [place] [address] Dec, Adjust[place] [address] anxiety and depressed mood F43.23 ; Cerebrovascular accident (CVA) due to embolism of right middle cerebral artery I63.411 and Encounter for screening colonoscopy for iit-sswg-cmxf patient Z12.[address] Dec, [place] [address] Facilitated Enrollment UNKNOWN Dec, - [place] [address] Dec, Adjustment disorder with mixed [place] anxiety and depressed mood [address] F43.[address] Dec, Adjust[place] [address] anxiety and depressed mood F43.[address] Nov, Essential (primary) [place] [address] hypertension I10 [address] Nov, [place] [address] Nov, Cerebrovascular accident ( CVA) [place] due to embolism of right [address] middle cerebral artery I63.[address] Nov, Adjustment disorder with mixed [place] anxiety and depressed mood [address] F43.[address] Nov, Adjust[place] [address] anxiety and depressed mood F43.[address] Nov, [place] [address] Nov, [facility] [place] [address] Nov, Anxiety F41.9 [place] [address] hoarseness R49.[address] Nov, [place] [address] Nov, [place] [address] Nov, Adjustment disorder with mixed [place] anxiety and depressed mood [address] F43.[address] Nov, Adjust[place] [address] anxiety and depressed mood F43.[address] Nov, Anxiety F41.9 [place] [address] Nov, [place] [address] Facilitated Enrollment [address] [place] Nov, [place] [address] [place] Oct, [place] [address] Facilitated Enrollment UNKNOWN Oct, - [place] [address] [place] Oct, [place] [address] Oct, Adjustment disorder with mixed Health [place], [place] anxiety and depressed mood [address] F43.23 [facility] [address] [place] [address] Oct, Adjust[place] [address] anxiety and depressed mood F43.23 [place] [facility] Includes [facility] [address] [place] Oct, [place] [address] [facility] [address] [place] Oct, [place] [address] [facility] [address] [place] Oct, Anxiety F41.9 [place] [address] Oct, [facility] [place] [address] Facilitated Enrollment UNKNOWN Oct, - [place] [address] Oct, Anxiety F41.9 [place] [address] midline low back pain without sciatica M54.[address] Oct, Adjustment disorder with mixed [place] anxiety and depressed mood [address] F43.[address] Oct, Adjustment disorder with mixed [place] anxiety and depressed mood [address] F43.23 [place] [address] [place] Oct, [place] [address] [place] [address] [place] Oct, [place] [address] [facility] [address] [place] Oct, [place] [address] [facility] [address] [place] Oct, [place] [address] [facility] [address] [place] Oct, Anxiety F41.9 [place] [address] [place] Oct, [facility] [place] [address] [facility] [address] Oct, [place] [address] [facility] [address] [place] Oct, Anxiety F41.9 [place] [address] Temporomandibular joint dysfunction M26.609 [place] [facility] [address] Oct, [place] [address] [facility] [address] Oct, [place] [address] [place] [address] [place] Oct, Rest[place] [address] J98.4 [place] Includes [facility] [address] September, [place] [address] [facility] [address] September, [place] [address] [facility] [address] [place] September, [place] [address] September, [facility] [place] [address] [facility] [address] [place] September, Thrush B37.0 [place] [address] [facility] [address] [place] September, [place] [address] E78.00 [place] [address] [place] September, [place] [address] without [place] I51.3 [place] [address] [place] September, [place] [address] [place] [address] [place] September, [place] [address] September, Pure hypercholesterolemia Health [place], [place] [address] E78.00 [place] [address] [place] September, [place] [address] September, [facility] [place] [address] September, [place] [address] J98.4 ; Thrush B37.0 and Pure hypercholesterolemia E78.00 [place] [address] [place] September, [place] [address] [place] [address] [place] September, Cerebrovascular accident ([place]) [place] [address] due to embolism of right middle cerebral artery I63.411 ; Essential hypertension I10 ; Left ventricular thrombus without GA I51.3 and Thrush B37.0 [place] [address] [place] September, [place] [address] [place] [address] Aug, [place] [address] Aug, [place] [address] [place] [address] [place] Aug, [place] [address] Aug, [place] [address] Aug, Neural [place] [address] cervical spine M99.81 ; Scoliosis, unspecified scoliosis type, unspecified spinal region M41.9 ; Other incomplete lesion at C2 level of cervical spinal cord, sequela S14.152S and Essential hypertension I10 [address] Aug, [place] [address] Aug, [place] [address] Jul, Essential hypertension I10 ; [place] [address] CAD (coronary artery disease) 414.00 ; Gastroesophageal reflux disease without esophagitis K21.9 and Prostate cancer screening Z12.[address] Jul, Essential hypertension I10 ; [place] [address] CAD (coronary artery disease) 414.00 and Gastroesophageal reflux disease without esophagitis K21.[address] Feb, [place] [address] Feb, [place] [address] Feb, Essential hypertension I10 ; [place] [address] Coronary artery disease involving coronary bypass graft of [place] heart with angina pectoris I25.709 and Other chest pain R07.[address] Nov, Pharyngitis 462 [place] [address] Nov, HTN (hypertension) 401.9 ; [place] [address] (coronary artery disease) 414.00 ; Psoriasis 696.1 ; Neck pain 723.1 and Screening for colon cancer V76.[address] Oct, Pharyngitis 462 [place] [address] IMMUNIZATIONS No Known Immunizations SOCIAL HISTORY Never Assessed REASON FOR REFERRAL FUNCTIONAL STATUS PLAN OF CARE VITAL SIGNS MEDICATIONS Medication Instructions Dosage Frequency Start End Date Duration Status Date Isosorbide Orally Once a day 1 tablet 24h 90 days Active Mononitrate 30 mg PROCEDURES No Known procedures RESULTS No Results REASON FOR VISIT Information Request Insurance Providers [facility] Member Patient Patient Patient Patient Patient Subscriber Subscriber Subscriber Group Insurance Plan Plan Plan Plan ID Relationship Address Phone Name Date of ID Name Date of No Type Insurance Insurance Insurance Coverage to Subscriber Address Phone Name Dates [facility] [phone] [facility] self Lc [id number] [place] [address] GG551 [place] Hplex Claims Hplex Jr Exchange Dept Exchange [facility] [id number] Case [phone] Case self Lc [id number] Management [place] [address] [place] [address] Community Jr Aetna [phone] Aetna self Lc [id number] Medicare [id number] [address] Medicare [place] [id number] Adv PPO [place] Adv PPO Jr 0010 [phone] MVP [phone] MVP self Lc [id number] Medicare [id number] Medicare [place] Adv Claims Adv Jr Preferred Department Preferred [place] [address] Medicare National [id number] Medicare self Lc [id number] PPS Government 41 PPS [place] Services Jr [address] [place] [id number] [facility] [phone] [facility] self Lc [id number] [place] [address] 83 GG551 [place] [id number] Hplex Claims Hplex Jr Exchange Dept Exchange [facility] [address] MEDICAL (GENERAL) HISTORY Type Description Date Medical History [place] 2014 Medical History CAD- Dr Smith Medical [...]
--- OUTSIDE RECORDS SUMMARY | 2018-07-10 15:01 | XMS REPORT ---
:1950 Author Organization [facility] Address [address] 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 Problem Neural foraminal M99.81 Active 586160866786 stenosis of cervical spine Problem Other incomplete S14.152S Active 583571176 lesion at C2 level of cervical spinal cord, sequela Problem Peripheral artery I73.9 Active 746031134 disease Problem Anxiety F41.9 Active 14846858 Problem Left ventricular I51.3 Active 76572745 thrombus without [place] Problem Primary M19.012 Active 31349226 osteoarthritis of left shoulder Problem Ischemic I25.5 Active 085043243 cardiomyopathy Problem Adjustment disorder F43.23 Active 40810425 with mixed anxiety and depressed mood Problem Essential (primary) I10 Active 37111245 hypertension Problem Mixed E78.2 Active 739185758 hyperlipidemia Problem 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 Active [id number] heart disease of [place] coronary artery without angina pectoris ALLERGIES No Information ENCOUNTERS Encounter Location Date Diagnosis [facility] [address] Aug, [place] [address] [facility] [address] Aug, [place] [address] [facility] [address] Jul, [place] [address] [facility] [address] Jun, [place] [address] [facility] [address] Jun, [place] [address] [place] [address] Jun, [place] [address] [facility] [address] Jun, [place] [address] [place] [address] May, [place] [address] of [place] coronary artery without angina pectoris I25.10 [place] [address] May, [place] [address] [place] [address] May, Acute [place] [address] without sciatica M54.5 ; Screening for prostate cancer Z12.5 ; Screening for colon cancer Z12.11 ; Ischemic cardiomyopathy I25.5 ; Screening for HIV without presence of risk factors Z11.4 ; Screening for diabetes mellitus Z13.1 ; Essential (primary) hypertension I10 ; Overweight (BMI 25.0-29.9) E66.3 ; BMI 26.0-26.9,adult Z68.26 ; Peripheral artery disease I73.9 and Encounter for immunization Z23 [place] [address] May, [place] [address] [place] [address] Apr, [place] [address] I73.9 [place] [address] Mar, [place] [address] [place] [address] Feb, [place] [address] [place] [address] Feb, [place] [address] of [place] coronary artery without angina pectoris I25.10 [place] [address] Feb, [place] [address] [place] [address] Jan, [place] [address] [place] [address] Jan, [place] [address] I73.9 [place] [address] Jan, [place] [address] [place] [address] Dec, [place] [address] [place] [address] Dec, [place] [address] [place] [address] Dec, Bronchitis J40 [place] [address] [place] [facility] [address] Dec, [place] [address] [facility] [address] Dec, Acute nasopharyngitis J00 [place] [address] [facility] [address] Dec, [place] [address] I73.9 Facilitated Enrollment UNKNOWN Nov, - [place] [address] Nov, Atherosclerotic heart disease [facility] [place] of [place] coronary artery [address] without angina pectoris I25.10 [place] [facility] [address] Nov, [place] [address] [facility] [address] Oct, [place] [address] [facility] [address] [place] Oct, [place] [address] [facility] [address] Oct, [place] [address] I73.9 [facility] [address] Oct, [place] [address] [place] [address] Oct, Essential (primary) [place] [address] hypertension I10 [place] [address] Oct, Essential (primary) [place] [address] hypertension I10 [facility] [address] September, [place] [address] shoulder M19.012 and Peripheral artery disease I73.9 [place] [address] Aug, Essential (primary) [place] [address] hypertension I10 [place] [address] Aug, [place] [address] [place] [address] Aug, [place] [address] of [place] coronary artery without angina pectoris I25.10 and Essential (primary) hypertension I10 [facility] [address] Aug, [place] [address] [facility] [address] Aug, [place] [address] I73.9 ; Restrictive airway disease J98.4 ; Chronic hoarseness R49.0 and Left ventricular thrombus without [place] I51.3 [place] [facility] [address] Aug, [place] [address] [facility] [address] Aug, [place] [address] Aug, Bilateral hearing loss, [place] unspecified hearing loss type [address] H91.93 [place] [address] Jul, [place] [address] [place] [address] Jul, [place] [address] I73.9 [place] [address] Jul, [place] [address] [place] [address] Jul, [place] [address] [place] [address] [place] Jul, [facility] [place] [address] [place] Jul, [place] [address] [place] Jul, [facility] [place] [address] [place] [address] Jun, Mixed hyperlipidemia E78.2 [place] [address] [place] [address] [place] Jun, Right leg claudication I73.9 ; [place] [address] Left arm numbness R20.0 ; Mixed hyperlipidemia E78.2 and Encounter for immunization Z23 [place] [address] Jun, [place] [address] [place] [address] Jun, Essential ([place]) [place] [address] hypertension I10 [place] [address] Jun, Essential (primary) [place] [address] hypertension I10 [place] [address] May, Stomach pain R10.9 [place] [address] right leg M79.604 [place] [address] May, [place] [address] [place] [address] May, [place] [address] [place] [address] May, [place] [address] [place] [address] May, [place] [address] of [place] coronary artery without angina pectoris I25.[address] [place] [place] May, [facility] [place] [address] [place] [address] May, Stomach pain R10.9 [place] [address] stools R19.5 [place] [address] [place] May, [place] [address] [facility] [address] [place] [address] Apr, [place] [address] Facilitated Enrollment UNKNOWN Apr, - [place] [address] [place] Apr, Mixed hyperlipidemia E78.2 [place] [address] [place] [address] [place] Mar, [place] [address] [place] [address] [place] Mar, [place] [address] [place] [address] [place] Mar, [place] [address] M79.661 and Pain in left shoulder M25.512 [place] [address] [place] Mar, [place] [address] [place] [address] [place] Feb, Encounter [place] [address] test for low risk patient Z11.59 [place] [address] [place] Feb, Athe[place] [address] of [place] coronary artery without angina pectoris I25.10 ; Anxiety F41.9 ; Essential (primary) hypertension I10 ; Mixed hyperlipidemia E78.2 and Need for hepatitis C screening test Z11.59 [facility] [address] [place] [address] Feb, [place] [address] [place] [address] [place] Feb, [place] [address] [facility] [address] [place] [address] Feb, [place] [address] [place] [address] [place] Feb, [place] [address] [place] [address] [place] Feb, [place] [address] [place] [address] [place] Feb, [place] [address] [place] [address] Feb, [place] [address] [facility] [address] [facility] Jan, [place] [address] [place] [address] Jan, [place] [address] [place] [address] [place] Jan, [place] [address] [place] [address] [place] Dec, [place] [address] Dec, [place] [address] Dec, Adjust[place] [address] anxiety and depressed mood F43.23 ; Cerebrovascular accident (CVA) due to embolism of right middle cerebral artery I63.411 and Encounter for screening colonoscopy for aai-mqnq-msit patient Z12.[address] Dec, [place] [address] Facilitated Enrollment UNKNOWN Dec, - [place] [address] Dec, Adjustment disorder with mixed [place] anxiety and depressed mood [address] F43.[address] Dec, Adjust[place] [address] anxiety and depressed mood F43.[address] Nov, Essential ([place]) [place] [address] hypertension I10 [address] Nov, [place] [address] Nov, Cerebrovascular accident ( CVA) [place] due to embolism of right [address] middle cerebral artery I63.[address] Nov, Adjustment disorder with mixed [place] anxiety and depressed mood [address] F43.[address] Nov, Adjustment [place] [address] anxiety and depressed mood F43.[address] Nov, [place] [address] [facility] Nov, [place] [address] Nov, Anxiety F41.9 [place] [address] hoarseness R49.[address] Nov, [place] [address] Nov, [place] [address] Nov, Adjustment disorder with mixed [place] anxiety and depressed mood [address] F43.[address] Nov, Adjust[place] [address] anxiety and depressed mood F43.23 [place] [facility] [address] Nov, Anxiety F41.9 [place] [address] [facility] [address] Nov, [place] [address] Facilitated Enrollment [address] Nov, - [place] [address] [place] Oct, [place] [address] Facilitated Enrollment UNKNOWN Oct, - [place] [address] [place] Oct, [facility] [place] [address] Oct, Adjustment disorder with mixed [place] anxiety and depressed mood [address] F43.23 [place] [facility] [address] [place] Oct, Adjust[place] [address] anxiety and depressed mood F43.23 [facility] [address] Oct, [place] [address] [facility] [address] Oct, [place] [address] [facility] [address] Oct, Anxiety F41.9 [place] [address] Oct, [place] [address] Facilitated Enrollment UNKNOWN Oct, - [place] [facility] [address] Oct, Anxiety F41.9 [place] [address] midline low back pain without sciatica M54.[address] Oct, Adjustment disorder with mixed [place] anxiety and depressed mood [address] F43.[address] Oct, Adjustment disorder with mixed [place] anxiety and depressed mood [address] F43.23 [place] [facility] [address] Oct, [place] [address] [place] [facility] [address] Oct, [place] [address] [place] [facility] [address] Oct, [place] [address] [place] [facility] [address] Oct, [place] [address] [facility] [address] Oct, Anxiety F41.9 [place] [address] [place] Oct, [facility] [place] [address] [facility] [address] Oct, [place] [address] [facility] [address] Oct, Anxiety F41.9 [place] [address] Temporomandibular joint dysfunction M26.609 [facility] [address] Oct, [place] [address] [facility] [address] Oct, [place] [address] [facility] [address] Oct, Restrict[place] [address] J98.4 [place] [facility] [address] September, [place] [address] [facility] [address] September, [place] [address] [place] [address] September, [place] [address] September, [facility] [place] [address] [place] [address] September, Thrush B37.0 [place] [address] [place] [address] September, [place] [address] E78.00 [place] [address] September, [place] [address] without [place] I51.3 [place] [address] September, [place] [address] [place] [address] September, [place] [address] September, Pure hypercholesterolemia [facility] [place], [place] [address] E78.00 [place] [address] September, [place] [address] September, [facility] [place] [address] [place] [address] September, Rest[place] [address] J98.4 ; Thrush B37.0 and Pure hypercholesterolemia E78.00 [place] [address] September, [place] [address] [place] [address] September, Cerebrovascular accident ([place]) [place] [address] due to embolism of right middle cerebral artery I63.411 ; Essential hypertension I10 ; Left ventricular thrombus without [place] I51.3 and Thrush B37.0 [place] [address] [place] September, [place] [address] [place] [address] [place] Aug, [place] [address] Aug, [place] [address] [place] [address] [place] Aug, [place] [address] Aug, [place] [address] [place] [address] [place] Aug, Neural [place] [address] cervical spine M99.81 ; Scoliosis, unspecified scoliosis type, unspecified spinal region M41.9 ; Other incomplete lesion at C2 level of cervical spinal cord, sequela S14.152S and Essential hypertension I10 [address] Aug, [place] [address] [place] [address] [place] Aug, [place] [address] [place] [address] [place] Jul, Essential hypertension I10 ; [place] [address] CAD (coronary artery disease) 414.00 ; Gastroesophageal reflux disease without esophagitis K21.9 and Prostate cancer screening Z12.[address] Jul, Essential hypertension I10 ; [place] [address] CAD (coronary artery disease) 414.00 and Gastroesophageal reflux disease without esophagitis K21.9 [place] [address] [place] Feb, [place] [address] [place] [address] [place] Feb, [place] [address] [place] [address] [place] Feb, Essential hypertension I10 ; [place] [address] Coronary artery disease involving coronary bypass graft of [place] heart with angina pectoris I25.709 and Other chest pain R07.89 [place] [address] [place] Nov, Pharyngitis [address] [place] [address] [place] [address] [place] Nov, HTN (hypertension) 401.9 ; [place] [address] (coronary artery disease) 414.00 ; Psoriasis 696.1 ; Neck pain 723.1 and Screening for colon cancer V76.51 [place] [address] [facility] Oct, Pharyngitis [address] [place] [address] IMMUNIZATIONS No Known Immunizations SOCIAL HISTORY Never Assessed REASON FOR REFERRAL FUNCTIONAL STATUS PLAN OF CARE VITAL SIGNS MEDICATIONS Medication Instructions Dosage Frequency Start End Date Duration Status Date Metoprolol Orally Once a day 1/2 tablet 24h Oct, Active Succinate ER 25 2018 MG PROCEDURES No Known procedures RESULTS No Results REASON FOR VISIT Refill Medication Insurance Providers [facility] Health Member Patient Patient Patient Patient Patient Subscriber Subscriber Subscriber Group Insurance Plan Plan Plan Plan ID Relationship Address Phone Name Date of ID Name Date of No Type Insurance Insurance Insurance Coverage to Subscriber Address Phone Name Dates Case [phone] Case [place] [id number] Management [place] [facility] [address] Community Jr Medicare National [phone] Medicare self [place] [id number] PPS Government 41 PPS [place] [employer] Jr [address] [facility] [id number] Aetna [phone] Aetna self [place] [id number] Medicare [id number] Medicare [place] [id number] Adv PPO [place] Adv PPO Jr [phone] [facility] [phone] [facility]Care self [place] [id number] [facility] [address] [phone] [facility] [place] [id number] Hplex Claims Hplex Jr Exchange Dept Exchange [facility] [address] [facility] [phone] [facility] self [place] [id number] [facility] 9255 Attn 83 [phone] [facility] [place] Hplex Claims Hplex Jr Exchange Dept Exchange [facility] [address] MVP [phone] MVP self Lc [id number] Medicare [id number] [address] 77 Medicare [place] Adv Claims Adv Jr Preferred Department Preferred [place] [address] MEDICAL (GENERAL) HISTORY Type Description Date Medical History [place] 2014 Medical History CAD- Dr Smith Medical [...]
--- OUTSIDE RECORDS SUMMARY | 2018-07-10 15:01 | XMS REPORT ---
:1950 Author Organization [facility] Address [address] [place] [address] Care Team Providers Name Role Phone Varghese Regan Unavailable Unavailable PROBLEMS Type Condition ICD9-CM [id number] Onset Condition SNOMED Code Code Code Dates Status Problem Cerebrovascular I63.411 Active 265804815 accident (CVA) due to embolism of right middle cerebral artery Problem Other incomplete S14.152S Active 661084761 lesion at C2 level of cervical spinal cord, sequela Problem Neural foraminal M99.81 Active 714775521757 stenosis of cervical spine Problem Peripheral artery I73.9 Active 858372728 disease Problem Ischemic I25.5 Active 135940538 cardiomyopathy Problem Left ventricular I51.3 Active 05782659 thrombus without IN Problem Primary M19.012 Active 51149831 osteoarthritis of left shoulder Problem Anxiety F41.9 Active 67346890 Problem Essential (primary) I10 Active 83817568 hypertension Problem Adjustment disorder F43.23 Active 50881663 with mixed anxiety and depressed mood Problem 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 Active 468681860822572 heart disease of [place] coronary artery without angina pectoris Problem Mixed E78.2 Active 054481347 hyperlipidemia ALLERGIES No Information ENCOUNTERS Encounter Location Date Diagnosis [facility] [address] Aug, [place] [address] [facility] [address] Aug, [place] [address] [facility] [address] Jun, [place] [address] [facility] [address] May, [place] [address] of [place] coronary artery without angina pectoris I25.10 [facility] [address] May, [place] [address] [place] [address] May, Acute midline [place] [address] without sciatica M54.5 ; Screening for prostate cancer Z12.5 ; Screening for colon cancer Z12.11 ; Ischemic cardiomyopathy I25.5 ; Screening for HIV without presence of risk factors Z11.4 ; Screening for diabetes mellitus Z13.1 ; Essential (primary) hypertension I10 ; Overweight (BMI 25.0-29.9) E66.3 ; BMI 26.0-26.9,adult Z68.26 ; Peripheral artery disease I73.9 and Encounter for immunization Z23 [place] [address] May, [place] [address] [place] [address] Apr, Per[place] [address] I73.9 [place] [address] Mar, [place] [address] [place] [address] Feb, [place] [address] [place] [address] Feb, Atherosclerotic [place] [address] of [place] coronary artery without angina pectoris I25.10 [place] [address] Feb, [place] [address] [place] [address] Jan, [place] [address] [place] [address] Jan, Per[place] [address] I73.9 [place] [address] [place] Jan, [place] [address] [place] [address] Dec, [place] [address] [place] [address] Dec, [place] [address] [place] [address] Dec, Bronchitis J40 [place] [address] [place] [address] Dec, [place] [address] [place] [address] Dec, Acute nasopharyngitis J00 [place] [address] [place] [address] Dec, Per[place] [address] I73.9 Facilitated Enrollment UNKNOWN Nov, - [place] [address] Nov, Atherosclerotic heart disease [facility] [place] of [place] coronary artery [address] without angina pectoris I25.10 [place] [address] Nov, [place] [address] [place] [address] Oct, [place] [address] Case Management [address] [place] Oct, [place], [place] [address] [facility] [address] Oct, Peripheral [place] [address] I73.9 [place] [address] Oct, [place] [address] [place] [address] Oct, Essential (primary) [place] [address] hypertension I10 [place] [address] Oct, Essential (primary) [place] [address] hypertension I10 [place] [address] September, Primary [place] [address] shoulder M19.012 and Peripheral artery disease I73.9 [place] [address] Aug, Essential (primary) [place] [address] hypertension I10 [place] [address] Aug, [place] [address] [place] [address] Aug, Atheros[place] [address] of [place] coronary artery without angina pectoris I25.10 and Essential (primary) hypertension I10 [place] [address] Aug, [place] [address] [place] [address] Aug, [place] [address] I73.9 ; Restrictive airway disease J98.4 ; Chronic hoarseness R49.0 and Left ventricular thrombus without IN I51.[address] [place] [address] Aug, [place] [address] [place] [address] Aug, [place] [address] Aug, Bilateral hearing loss, [facility] [place] unspecified hearing loss type [address] H91.93 [place] [address] Jul, [place] [address] [place] [address] Jul, Per[place] [address] I73.[address] [place] [address] Jul, [place] [address] [place] [address] Jul, [place] [address] [place] Jul, [facility] [place] [address] [place] Jul, [facility] [place] [address] [place] Jul, [facility] [place] [address] [place] [address] [place] Jun, Right leg claudication I73.9 ; [place] [address] Left arm numbness R20.0 ; Mixed hyperlipidemia E78.2 and Encounter for immunization Z23 [place] [address] Jun, Mixed hyperlipidemia E78.2 [place] [address] [place] [address] Jun, [place] [address] [place] [address] Jun, Essential (primary) [place] [address] hypertension I10 [place] [address] Jun, Essential (primary) [place] [address] hypertension I10 [place] [address] May, Stomach pain R10.9 [place] [address] right leg M79.604 [place] [address] May, [place] [address] [place] [address] May, [place] [address] [place] [address] May, [place] [address] [place] [address] May, Atherosclerotic [place] [address] of [place] coronary artery without angina pectoris I25.[address] [place] May, [facility] [place] [address] [place] [address] May, Stomach pain R10.9 [place] [address] stools R19.5 [place] [address] May, [place] [address] [place] Apr, [place] [address] Facilitated Enrollment UNKNOWN Apr, - [place] [address] Apr, Mixed hyperlipidemia E78.2 [place] [address] Mar, [place] [address] Mar, [place] [address] Mar, [place] [address] M79.661 and Pain in left shoulder M25.[address] Mar, [place] [address] Feb, Encounter [place] [address] test for low risk patient Z11.[address] Feb, [place] [address] of [place] coronary artery without angina pectoris I25.10 ; Anxiety F41.9 ; Essential (primary) hypertension I10 ; Mixed hyperlipidemia E78.2 and Need for hepatitis C screening test Z11.[address] Feb, [place] [address] Feb, [place] [address] [facility] [address] [place] [address] Feb, [place] [address] Feb, [place] [address] Feb, [place] [address] Feb, [place] [address] Feb, [place] [address] Jan, [place] [address] Jan, [place] [address] Jan, [place] [address] [place] [address] Dec, [place] [address] Dec, [place] [address] Dec, Adjust[place] [address] anxiety and depressed mood F43.23 ; Cerebrovascular accident (CVA) due to embolism of right middle cerebral artery I63.411 and Encounter for screening colonoscopy for [id number] patient Z12.[address] Dec, [place] [address] Facilitated Enrollment UNKNOWN Dec, - [address] Dec, Adjustment disorder with mixed [place] anxiety and depressed mood [address] F43.[address] Dec, Adjustment [place] [address] anxiety and depressed mood F43.[address] Nov, Essential (primary) [place] [address] hypertension I10 [address] Nov, [place] [address] Nov, Cerebrovascular accident ( CVA) [place] due to embolism of right [address] middle cerebral artery I63.[address] Nov, Adjustment disorder with mixed [place] anxiety and depressed mood [address] F43.[address] Nov, Adjustment [place] [address] anxiety and depressed mood F43.[address] Nov, [place] [address] [place] [address] [place] Nov, [place] [address] Nov, Anxiety F41.9 [place] [address] hoarseness R49.[address] Nov, [place] [address] Nov, [place] [address] Nov, Adjustment disorder [place] [address] anxiety and depressed mood F43.[address] Nov, Adjustment disorder with mixed [place] anxiety and depressed mood [address] F43.[address] Nov, Anxiety F41.9 [place] [address] Nov, [place] [address] Facilitated Enrollment [address] Nov, [place] [address] [place] Oct, Health [place] [address] Facilitated Enrollment UNKNOWN Oct, - [place] [address] Oct, [facility] [place] [address] Oct, Adjustment disorder with mixed [facility] [place] anxiety and depressed mood [address] F43.23 [place] [facility] [address] Oct, Adjustment [place] [address] anxiety and depressed mood F43.23 [place] [facility] [address] Oct, [place] [address] [facility] [address] Oct, [place] [address] [facility] [address] Oct, Anxiety F41.9 [place] [address] Oct, [facility] [place] [address] Facilitated Enrollment UNKNOWN Oct, - [place] [facility] [address] Oct, Anxiety F41.9 [place] [address] midline low back pain without sciatica M54.[address] Oct, Adjustment disorder with mixed [place] anxiety and depressed mood [address] F43.[address] Oct, Adjustment disorder with mixed [place] anxiety and depressed mood [address] F43.23 [facility] [address] Oct, [place] [address] [facility] [address] Oct, [place] [address] [place] [facility] [address] Oct, [place] [address] [facility] [address] Oct, [place] [address] [facility] [address] Oct, Anxiety F41.9 [place] [address] [place] Oct, [facility] [place] [address] [facility] [address] Oct, [place] [address] [facility] [address] Oct, Anxiety F41.9 [place] [address] Temporomandibular joint dysfunction M26.609 [place] [facility] [address] Oct, [place] [address] [facility] [address] Oct, [place] [address] [facility] [address] Oct, Restrictive [place] [address] J98.4 [place] [facility] [address] September, [place] [address] [facility] [address] September, [place] [address] [facility] [address] September[place] [address] [place] [address] [place] September, [place] [address] [facility] [address] September, Thrush B37.0 [place] [address] [facility] [address] September, Pure [place] [address] E78.00 [facility] [address] September, Left [place] [address] without IN I51.3 [facility] [address] September, [place] [address] [facility] [address] September, [place] [address] [place] September, Pure [place] [address] E78.00 [facility] [address] September, [place] [address] September, [place] [address] [facility] [address] September, Restrictive [place] [address] J98.4 ; Thrush B37.0 and Pure hypercholesterolemia E78.00 [facility] [address] September, [place] [address] [place] [address] September, Cerebrovascular accident ([place]) [place] [address] due to embolism of right middle cerebral artery I63.411 ; Essential hypertension I10 ; Left ventricular thrombus without IN I51.3 and Thrush B37.0 [facility] [address] September, [place] [address] [facility] [address] Aug, [place] [address] Aug, [place] [address] [place] [facility] [address] Aug, [place] [address] Aug, [place] [address] [place] [address] Aug, Neural [place] [address] cervical spine M99.81 ; Scoliosis, unspecified scoliosis type, unspecified spinal region M41.9 ; Other incomplete lesion at C2 level of cervical spinal cord, sequela S14.152S and Essential hypertension I10 [address] Aug, [place] [address] [place] [address] Aug, [place] [address] [place] [address] Jul, Essential hypertension I10 ; [place] [address] CAD (coronary artery disease) 414.00 ; Gastroesophageal reflux disease without esophagitis K21.9 and Prostate cancer screening Z12.[address] Jul, Essential hypertension I10 ; [place] [address] CAD (coronary artery disease) 414.00 and Gastroesophageal reflux disease without esophagitis K21.9 [place] [address] Feb, [place] [address] [place] [address] Feb, [place] [address] [place] [address] Feb, Essential hypertension I10 ; [place] [address] Coronary artery disease involving coronary bypass graft of [place] heart with angina pectoris I25.709 and Other chest pain R07.89 [place] [address] Nov, Pharyngitis [address] [place] [address] [place] [address] Nov, HTN (hypertension) 401.9 ; [place] [address] (coronary artery disease) 414.00 ; Psoriasis 696.1 ; Neck pain 723.1 and Screening for colon cancer V76.[address] Oct, Pharyngitis [address] [place] [address] IMMUNIZATIONS No Known Immunizations SOCIAL HISTORY Never Assessed REASON FOR REFERRAL FUNCTIONAL STATUS PLAN OF CARE VITAL SIGNS MEDICATIONS Medication Instructions Dosage Frequency Start End Date Duration Status Date Atorvastatin Orally Once a 1 tablet 24h 90 days Active Calcium 80 MG day PROCEDURES No Known procedures RESULTS No Results REASON FOR VISIT FIT Insurance Providers Health Health Health Health Health Member Patient Patient Patient Patient Patient Subscriber Subscriber Subscriber Group Insurance Plan Plan Plan Plan ID Relationship Address Phone Name Date of ID Name Date of No Type Insurance Insurance Insurance Coverage to Subscriber Address Phone Name Dates Medicare National [id number] Medicare self [place] [id number] PPS Government 41 PPS [employer] Jr [address] [place] [phone] MVP [phone] MVP self [place] [id number] Medicare [id number] Medicare [place] Adv Claims Adv Jr Preferred Department Preferred [place] [address] Aetna [phone] Aetna self [place] [id number] Medicare [id number] Medicare [place] [id number] Adv P[place] Adv PPO Jr [phone] [facility] [phone] [facility] self [place] [id number] [place] [address] [phone] [place] [id number] Hplex Claims Hplex Jr Exchange Dept Exchange Formerly [facility] [address] Case [phone] Case self [place] [id number] Management [place] 02 Management [facility] [address] [facility] [phone] [facility] self [place] [id number] [place] [address] [phone] [place] Hplex Claims Hplex Jr Exchange Dept Exchange Formerly [facility] [address] MEDICAL (GENERAL) HISTORY Type Description Date Medical History [place] 2015 Medical History CAD- Dr Smith Medical History [...]
--- OUTSIDE RECORDS SUMMARY | 2018-07-10 15:01 | XMS REPORT ---
:1950 Author Organization [facility] Address [address] [place] [address] Care Team Providers Name Role Phone Varghese Regan Unavailable Unavailable PROBLEMS Type Condition ICD9-CM LIA65-PP Onset Condition SNOMED Code Code Code Dates Status Problem Cerebrovascular I63.411 Active 581742820 accident (CVA) due to embolism of right middle cerebral artery Problem Neural foraminal M99.81 Active 497067689915 stenosis of cervical spine Problem Other incomplete S14.152S Active 210440182 lesion at C2 level of cervical spinal cord, sequela Problem Peripheral artery I73.9 Active 172313855 disease Problem Anxiety F41.9 Active 63432824 Problem Left ventricular I51.3 Active 05486067 thrombus without DC Problem Primary M19.012 Active 90133856 osteoarthritis of left shoulder Problem Ischemic I25.5 Active 329363621 cardiomyopathy Problem Adjustment disorder F43.23 Active 03187873 with mixed anxiety and depressed mood Problem Essential (primary) I10 Active 49126098 hypertension Problem Mixed E78.2 Active 080504609 hyperlipidemia Problem 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 Active [id number] heart disease of [place] coronary artery without angina pectoris ALLERGIES No Information ENCOUNTERS Encounter Location Date Diagnosis [facility] [address] Aug, [place] [address] [facility] [address] Aug, [place] [address] [facility] [address] Jul, [place] [address] [facility] [address] Jun, [place] [address] [facility] [address] Jun, [place] [address] [place] [address] Jun, [place] [address] [facility] [address] Jun, [place] [address] [place] [address] May, [place] [address] of [place] coronary artery without angina pectoris I25.10 [place] [address] May, [place] [address] [place] [address] May, Acute [place] [address] without sciatica M54.5 ; Screening for prostate cancer Z12.5 ; Screening for colon cancer Z12.11 ; Ischemic cardiomyopathy I25.5 ; Screening for HIV without presence of risk factors Z11.4 ; Screening for diabetes mellitus Z13.1 ; Essential (primary) hypertension I10 ; Overweight (BMI 25.0-29.9) E66.3 ; BMI 26.0-26.9,adult Z68.26 ; Peripheral artery disease I73.9 and Encounter for immunization Z23 [place] [address] May, [place] [address] [place] [address] Apr, [place] [address] I73.9 [place] [address] Mar, [place] [address] [place] [address] Feb, [place] [address] [place] [address] Feb, [place] [address] of [place] coronary artery without angina pectoris I25.10 [place] [address] Feb, [place] [address] [place] [address] Jan, [place] [address] [place] [address] Jan, [place] [address] I73.9 [place] [address] Jan, [place] [address] [place] [address] Dec, [place] [address] [place] [address] Dec, [place] [address] [place] [address] Dec, Bronchitis J40 [place] [address] [place] [facility] [address] Dec, [place] [address] [facility] [address] Dec, Acute nasopharyngitis J00 [place] [address] [facility] [address] Dec, [place] [address] I73.9 Facilitated Enrollment UNKNOWN Nov, - [place] [address] Nov, Atherosclerotic heart disease [facility] [place], [place] coronary artery [address] without angina pectoris I25.10 [place] [facility] [address] Nov, [place] [address] [facility] [address] Oct, [place] [address] [facility] [address] [place] Oct, [place] [address] [facility] [address] Oct, [place] [address] I73.9 [facility] [address] Oct, [place] [address] [place] [address] Oct, Essential (primary) [place] [address] hypertension I10 [place] [address] Oct, Essential (primary) [place] [address] hypertension I10 [facility] [address] September, [place] [address] shoulder M19.012 and Peripheral artery disease I73.9 [place] [address] Aug, Essential (primary) [place] [address] hypertension I10 [place] [address] Aug, [place] [address] [place] [address] Aug, [place] [address] of [place] coronary artery without angina pectoris I25.10 and Essential (primary) hypertension I10 [facility] [address] Aug, [place] [address] [facility] [address] Aug, [place] [address] I73.9 ; Restrictive airway disease J98.4 ; Chronic hoarseness R49.0 and Left ventricular thrombus without DC I51.3 [place] [facility] [address] Aug, [place] [address] [facility] [address] Aug, [place] [address] Aug, Bilateral hearing loss, [place], [place] unspecified hearing loss type [address] H91.93 [place] [address] Jul, [place] [address] [place] [address] Jul, [place] [address] I73.9 [place] [address] Jul, [place] [address] [place] [address] [place] [address] [place] [address] [place] Jul, [place] [address] [place] Jul, [place] [address] [place] Jul, [place] [address] [place] [address] Jun, Mixed hyperlipidemia E78.2 [place] [address] [place] [address] Jun, Right leg claudication I73.9 ; [place] [address] Left arm numbness R20.0 ; Mixed hyperlipidemia E78.2 and Encounter for immunization Z23 [place] [address] Jun, [place] [address] [place] [address] Jun, Essential (primary) [place] [address] hypertension I10 [place] [address] Jun, Essential (primary) [place] [address] hypertension I10 [place] [address] May, Stomach pain R10.9 [place] [address] right leg M79.604 [place] [address] May, [place] [address] [place] [address] May, [place] [address] [place] [address] May, [place] [address] [place] [address] May, Athe[place] [address] of [place] coronary artery without angina pectoris I25.[address] [place] May, [place] [address] [place] [address] May, Stomach pain R10.9 [place] [address] stools R19.5 [place] [address] May, [place] [address] [facility] [address] [place] [address] Apr, [place] [address] Facilitated Enrollment UNKNOWN Apr, - [place] [address] [place] Apr, Mixed hyperlipidemia E78.2 [place] [address] [place] [address] Mar, [place] [address] [place] [address] Mar, [place] [address] [place] [address] Mar, [place] [address] M79.661 and Pain in left shoulder M25.512 [place] [address] Mar, [place] [address] [place] [address] Feb, Encounter [place] [address] test for low risk patient Z11.59 [place] [address] Feb, Atheros[place] [address] of [place] coronary artery without angina pectoris I25.10 ; Anxiety F41.9 ; Essential (primary) hypertension I10 ; Mixed hyperlipidemia E78.2 and Need for hepatitis C screening test Z11.59 [facility] [address] [place] [address] Feb, [place] [address] [place] [address] Feb, [place] [address] [facility] [address] [place] [address] Feb, [place] [address] [place] [address] Feb, [place] [address] [place] [address] Feb, [place] [address] [place] [address] Feb, [place] [address] [place] [address] Feb[place] [address] [facility] [address] Jan, [place] [address] [place] [address] Jan[place] [address] [place] [address] Jan, [place] [address] [place] [address] Dec, [place] [address] Dec, [place] [address] Dec, Adjust[place] [address] anxiety and depressed mood F43.23 ; Cerebrovascular accident (CVA) due to embolism of right middle cerebral artery I63.411 and Encounter for screening colonoscopy for ldq-hroy-cnah patient Z12.[address] Dec, [place] [address] Facilitated Enrollment UNKNOWN Dec, - [place] [address] Dec, Adjustment disorder with mixed [place], [place] anxiety and depressed mood [address] F43.[address] Dec, Adjust[place] [address] anxiety and depressed mood F43.[address] Nov, Essential (primary) [place] [address] hypertension I10 [address] Nov, [place] [address] Nov, Cerebrovascular accident ( CVA) [place] due to embolism of right [address] middle cerebral artery I63.[address] Nov, Adjustment disorder with mixed [place], [place] anxiety and depressed mood [address] F43[address] Nov, Adjust[place] [address] anxiety and depressed mood F43.[address] Nov, [place] [address] [facility] [address] [facility] Nov, [place] [address] Nov, Anxiety F41.9 [place] [address] hoarseness R49.[address] Nov, [place] [address] Nov, [place] [address] Nov, Adjustment disorder with mixed [place] anxiety and depressed mood [address] F43.[address] Nov, Adjust[place] [address] anxiety and depressed mood F43.23 [place] [facility] [address] Nov, Anxiety F41.9 [place] [address] [facility] [address] Nov, [place] [address] Facilitated Enrollment [address] Nov, [place] [address] [place] Oct, [place] [address] Facilitated Enrollment UNKNOWN Oct, - [place] [address] [place] Oct, [place] [address] Oct, Adjustment disorder with mixed [place] anxiety and depressed mood [address] F43.23 [place] [facility] [address] Oct, [place] [address] anxiety and depressed mood F43.23 [facility] [address] Oct, [place] [address] [facility] [address] Oct, [place] [address] [facility] [address] Oct, Anxiety F41.9 [place] [address] Oct, [place] [address] Facilitated Enrollment UNKNOWN Oct, - [place] [facility] [address] Oct, Anxiety F41.9 [place] [address] midline low back pain without sciatica M54.[address] Oct, Adjustment disorder with mixed [place], [place] anxiety and depressed mood [address] F43.[address] Oct, Adjustment disorder with mixed [place], [place] anxiety and depressed mood [address] F43.23 [place] [facility] [address] Oct, [place] [address] [place] [facility] [address] Oct, [place] [address] [place] [facility] [address] Oct, [place] [address] [place] [facility] [address] Oct, [place] [address] [facility] [address] Oct, Anxiety F41.9 [place] [address] [place] Oct, [facility] [place] [address] [facility] [address] Oct, [place] [address] [facility] [address] Oct, Anxiety F41.9 [place] [address] Temporomandibular joint dysfunction M26.609 [facility] [address] Oct, [place] [address] [facility] [address] Oct, [place] [address] [facility] [address] Oct, Restrict[place] [address] J98.4 [place] [facility] [address] September, [place] [address] [facility] [address] September, [place] [address] [place] [address] September, [place] [address] September, [facility] [place] [address] [place] [address] September, Thrush B37.0 [place] [address] [place] [address] September, [place] [address] E78.00 [place] [address] September, [place] [address] without DC I51.3 [place] [address] September, [place] [address] [place] [address] September, [place] [address] September, Pure hypercholesterolemia [facility] [place], [place] [address] E78.00 [place] [address] September, [place] [address] September, [facility] [place] [address] [place] [address] September, [place] [address] J98.4 ; Thrush B37.0 and Pure hypercholesterolemia E78.00 [place] [address] September, [place] [address] [place] [address] September, Cerebrovascular accident ([place]) [place] [address] due to embolism of right middle cerebral artery I63.411 ; Essential hypertension I10 ; Left ventricular thrombus without DC I51.3 and Thrush B37.0 [place] [address] September, [place] [address] [place] [address] Aug, [place] [address] Aug, [place] [address] [place] [address] Aug, [place] [address] Aug, [place] [address] [place] [address] Aug, Neural [place] [address] cervical spine M99.81 ; Scoliosis, unspecified scoliosis type, unspecified spinal region M41.9 ; Other incomplete lesion at C2 level of cervical spinal cord, sequela S14.152S and Essential hypertension I10 [address] Aug, [place] [address] [place] [address] Aug, [place] [address] [place] [address] Jul, Essential hypertension I10 ; [place] [address] CAD (coronary artery disease) 414.00 ; Gastroesophageal reflux disease without esophagitis K21.9 and Prostate cancer screening Z12.[address] Jul, Essential hypertension I10 ; [place] [address] CAD (coronary artery disease) 414.00 and Gastroesophageal reflux disease without esophagitis K21.9 [place] [address] Feb, [place] [address] [place] [address] Feb, [place] [address] [place] [address] Feb, Essential hypertension I10 ; [place] [address] Coronary artery disease involving coronary bypass graft of [place] heart with angina pectoris I25.709 and Other chest pain R07.89 [place] [address] Nov, Pharyngitis 462 [place] [address] [place] [address] Nov, HTN (hypertension) 401.9 ; [place] [address] (coronary artery disease) 414.00 ; Psoriasis 696.1 ; Neck pain 723.1 and Screening for colon cancer V76.51 [place] [address] [facility] Oct, Pharyngitis 462 [place] [address] IMMUNIZATIONS No Known Immunizations SOCIAL HISTORY Never Assessed REASON FOR REFERRAL FUNCTIONAL STATUS PLAN OF CARE VITAL SIGNS MEDICATIONS Unknown Medications PROCEDURES No Known procedures RESULTS No Results REASON FOR VISIT Information Request Insurance Providers [facility] Health Member Patient Patient Patient Patient Patient Subscriber Subscriber Subscriber Group Insurance Plan Plan Plan Plan ID Relationship Address Phone Name Date of ID Name Date of No Type Insurance Insurance Insurance Coverage to Subscriber Address Phone Name Dates Case [phone] Case self [place] [id number] Management [place] [address] [place] [address] Community Jr [facility] [phone] DentCare self [place] [id number] [place] [phone] [place] Hplex Claims Hplex Jr Exchange Dept Exchange [facility] [address] DentCare [phone] DentCare self [place] [id number] [phone] [place] [address] [phone] [place] [id number] Hplex Claims Hplex Jr Exchange Dept Exchange [facility] [address] Medicare National [phone] Medicare self Lc [id number] PPS Government 41 PPS [place] Services Jr [address] [facility] [id number] MVP [phone] MVP self Lc [id number] Medicare [id number] Medicare [place] Adv Claims Adv Jr Preferred Department Preferred [place] [address] Aetna [phone] Aetna self Lc [id number] Medicare [id number] [address] Medicare [place] [id number] Adv PPO [place] Adv PPO Jr [id number] MEDICAL (GENERAL) HISTORY Type Description Date Medical History DC 2014 Medical History CAD- Dr Smith Medical [...]
[2018-07-10 15:04] LABS: ABS Basophils 0 10^3/ul (0-0.2); ABS Eosinophils 0.1 10^3/ul (0-0.6); ABS Lymphocytes 1.7 10^3/ul (1.0-4.8); ABS Monocytes 0.5 10^3/ul (0-0.8); ABS Neutrophils 3.1 10^3/ul (1.5-7.7); ABS Nucleated RBC 0 10^3/ul; Eosinophil % 1.8 %; Hematocrit 40 % (42-52); Hemoglobin 13.6 g/dl (14.0-18.0); Mean Corpuscular HGB Conc 34 g/dl (31-36); Mean Corpuscular Hemoglobin 30 pg (27-31); Mean Corpuscular Volume 89 fL (80-94); Mean Platelet Volume 7.7 fL (7.4-10.4); Nucleated Red Blood Cells % 0; Platelet Count 221 10^3/ul (150-450); Red Blood Count 4.52 10^6/ul (4.00-5.40); Red Cell Distribution Width 14 % (10.5-15); White Blood Count 5.4 10^3/ul (3.5-10.8)
[2018-07-10 15:18] LABS: Albumin 4.1 g/dL (3.2-5.2); Albumin/Globulin Ratio 1.4 (1-3); BUN/Creatinine Ratio 20.5 (8-20); EGFR African American 105.2 (>60); EGFR Non-African American 86.9 (>60); Globulin 2.9 g/dL (2-4); Total Bilirubin 0.5 mg/dL (0.2-1.0)
[2018-07-10 15:24] LABS: INR 0.94 (0.77-1.02)
[2018-07-10 15:45] VITALS: BP 114/63
== END 2018-07-10 15:44 | disposition home or self-care (01) ==
LOC: ED 14:15
DX: R07.89 Other chest pain (principal); I25.10 Atherosclerotic heart disease of native coronary artery without angina pectoris; H91.93 Unspecified hearing loss, bilateral; Z86.73 Personal history of transient ischemic attack (TIA), and cerebral infarction without residual deficits; R06.02 Shortness of breath; Z87.891 Personal history of nicotine dependence; Z79.01 Long term (current) use of anticoagulants; I10 Essential (primary) hypertension; E78.5 Hyperlipidemia, unspecified; I25.2 Old myocardial infarction
CPT/HCPCS: 36415; 71045; 80053; 83605; 83880; 84484; 85025; 85379; 85610; 93005; 99283